=== PATIENT | female | born 1945 | race African-American/Black ===

== ENCOUNTER 2019-05-09 07:13 | Emergency (ER) | payer MEDICARE, OTHER ==
[2019-05-09 07:41] VITALS: BP 133/67
--- NOTE | 2019-05-09 09:02 | ER Document Report ---
ED Medical Screen (RME) - General Chief Complaint: Vaginal Bleeding Stated Complaint: VAGINAL BLEEDING Time Seen by Provider: 05/09/19 08:54 Primary Care Provider: BK ARIAS MD [Primary Care Provider] - Follow up as needed Mode of Arrival: Wheelchair Information source: Patient, Relative Notes: Patient presents to the emergency department with complaints of vaginal bleeding for the past 3 to 4 days. Patient reports she is noted small clots. She notes that when she voids and when she wipes. She is not sure if the blood is coming from her vagina or when she voids. Patient gives history of recent stroke. She was sent to [facility] rehab. She reports they scraped her ovaries there. Patient is on Plavix. Patient also reports she is holding fluid. Denies abdominal pain denies abdominal cramps fever vomiting. I have greeted and performed a rapid initial assessment of this patient. A comprehensive ED assessment and evaluation of the patient, analysis of test results and completion of the medical decision making process will be conducted by additional ED providers. Dictation of this chart was performed using voice recognition software; therefore, there may be some unintended grammatical errors. TRAVEL OUTSIDE OF THE [place] IN LAST 30 DAYS: No - Related Data Allergies/Adverse Reactions: lisinopril [Lisinopril] Allergy (Verified 05/09/19 07:15) morphine Allergy (Verified 05/09/19 07:15) Penicillins Allergy (Verified 05/09/19 07:15) atorvastatin Adverse Reaction (Verified 05/09/19 07:15) metformin Adverse Reaction (Verified 05/09/19 07:15) Past Medical History - Past Medical History Cardiac Medical History: Reports: Hx Hypercholesterolemia, Hx Hypertension Endocrine Medical History: Reports: Hx Diabetes Mellitus Type 2 Renal/ Medical History: Denies: Hx Peritoneal Dialysis Psychiatric Medical History: Denies: Hx Depression Past Surgical History: Reports: Other - L glaucoma procedure - Immunizations Hx Diphtheria, Pertussis, Tetanus Vaccination: No Physical Exam - Vital signs Vitals: Temp Pulse Resp BP Pulse Ox 98.5 F 96 20 133/67 H 98 05/09/19 07:39 05/09/19 07:39 05/09/19 07:39 05/09/19 07:39 05/09/19 07:39 Course - Vital Signs Vital signs: Temp Pulse Resp BP Pulse Ox 98.5 F 96 20 133/67 H 98 07/16/19 07:39 05/09/19 07:39 05/09/19 07:39 05/09/19 07:39 05/09/19 07:39 Doctor's Discharge - Discharge Referrals: BK ARIAS MD [Primary Care Provider] - Follow up as needed
[2019-05-09 10:36] LABS: APPEARANCE,URINE CLEAR; BILIRUBIN,URINE NEGATIVE (NEGATIVE); GLUCOSE, URINE NEGATIVE (NEGATIVE); KETONES,URINE NEGATIVE (NEGATIVE); LEUKOCYTE ESTERASE,URINE NEGATIVE (NEGATIVE); NITRITE,URINE NEGATIVE (NEGATIVE); PROTEIN,URINE NEGATIVE (NEGATIVE); URINE SPECIFIC GRAVITY 1.006; UROBILINOGEN,URINE NEGATIVE mg/dL (<2.0)
[2019-05-09 10:38] LABS: COLOR,URINE PINK
--- NOTE | 2019-05-09 10:46 | ER Document Report ---
ED GI/ - General Chief Complaint: Vaginal Bleeding Stated Complaint: VAGINAL BLEEDING Time Seen by Provider: 05/09/19 08:54 Primary Care Provider: BK ARIAS MD [Primary Care Provider] - Follow up as needed Mode of Arrival: Wheelchair Notes: Patient is a 73-year-old female presented to the emergency department chief complaint of blood in his urine and possible vaginal bleeding. Patient reports symptoms started this week. She denies any abdominal pain, vaginal pain, nausea, vomiting, diarrhea or fever. She does report she had a uterine ablation done last month by a Dr. Christiansen in [place]. She also reports past medical history of stroke and hypertension. She states she used to be diabetic however she manages it with diet. She also complains of bilateral lower extremity edema worse than her baseline, she states she takes Lasix 40 mg once daily. She denies history of CHF. TRAVEL OUTSIDE OF THE [place] IN LAST 30 DAYS: No - Related Data Allergies/Adverse Reactions: lisinopril [Lisinopril] Allergy (Verified 05/09/19 07:15) morphine Allergy (Verified 05/09/19 07:15) Penicillins Allergy (Verified 05/09/19 07:15) atorvastatin Adverse Reaction (Verified 05/09/19 07:15) metformin Adverse Reaction (Verified 05/09/19 07:15) Past Medical History - General Information source: Patient, Relative - Social History Smoking Status: Never Smoker Frequency of alcohol use: None Drug Abuse: None Family History: DM, Hypertension - Past Medical History Cardiac Medical History: Reports: Hx Hypercholesterolemia, Hx Hypertension Endocrine Medical History: Reports: Hx Diabetes Mellitus Type 2 Renal/ Medical History: Denies: Hx Peritoneal Dialysis Psychiatric Medical History: Denies: Hx Depression Past Surgical History: Reports: Hx Gynecologic Surgery - Uterine ablation 2019, Other - L glaucoma procedure - Immunizations Hx Diphtheria, Pertussis, Tetanus Vaccination: No Review of Systems - Review of Systems Constitutional: No symptoms reported EENT: No symptoms reported Cardiovascular: See HPI Respiratory: No symptoms reported Gastrointestinal: No symptoms reported Genitourinary: No symptoms reported Female Genitourinary: See HPI Musculoskeletal: No symptoms reported Skin: No symptoms reported Hematologic/Lymphatic: No symptoms reported Neurological/Psychological: No symptoms reported Physical Exam - Vital signs Vitals: Temp Pulse Resp BP Pulse Ox 98.5 F 96 20 133/67 H 98 05/09/19 07:39 05/09/19 07:39 05/09/19 07:39 05/09/19 07:39 05/09/19 07:39 - Notes Notes: PHYSICAL EXAMINATION: GENERAL: Well-appearing, well-nourished and in no acute distress. HEAD: Atraumatic, normocephalic. EYES: Pupils equal round and reactive to light, extraocular movements intact, conjunctiva are normal. ENT: Nares patent, oropharynx clear without exudates. Moist mucous membranes. NECK: Normal range of motion, supple without lymphadenopathy LUNGS: Breath sounds clear to auscultation bilaterally and equal. No wheezes rales or rhonchi. HEART: Regular rate and rhythm without murmurs ABDOMEN: Soft, large round, nontender, nondistended abdomen. No guarding, no rebound. No masses appreciated. Female : Scant dark red blood noted on internal vaginal exam. Musculoskeletal: Normal range of motion, 3+ pitting edema. No cyanosis. NEUROLOGICAL: Cranial nerves grossly intact. Normal speech. Normal sensory, motor exams PSYCH: Normal mood, normal affect. SKIN: Warm, Dry, normal turgor, no rashes or lesions noted. Course - Re-evaluation Re-evalutation: Nursing staff having issues obtaining blood and IV access. Lab is currently at bedside. Urinalysis shows large blood. Patient's physical examination is unrem arkable, she has no pain. We will plan to do a pelvic exam to determine if she is actually having vaginal bleeding. Laboratory 05/09/19 05/09/19 05/09/19 10:12 11:02 11:02 WBC 9.0 RBC 3.68 L Hgb 11.6 L Hct 34.9 L MCV 95 MCH 31.5 MCHC 33.2 RDW 13.4 Plt Count 295 Seg Neutrophils % 71.2 Lymphocytes % 20.6 Monocytes % 6.7 Eosinophils % 0.6 Basophils % 0.9 Absolute Neutrophils 6.4 Absolute Lymphocytes 1.9 Absolute Monocytes 0.6 Absolute Eosinophils 0.1 Absolute Basophils 0.1 PT Cancelled INR Cancelled APTT Cancelled Sodium Potassium Chloride Carbon Dioxide Anion Gap BUN Creatinine Est GFR ( Amer) Est GFR (Non-Af Amer) Glucose Calcium Total Bilirubin Direct Bilirubin Neonat Total Bilirubin Neonat Direct Bilirubin Neonat Indirect Bili AST ALT Alkaline Phosphatase NT-Pro-B Natriuret Pep Total Protein Albumin Urine Color PINK Urine Appearance CLEAR Urine pH 7.0 Ur Specific [place] 1.006 Urine Protein NEGATIVE Urine Glucose (UA) NEGATIVE Urine Ketones NEGATIVE Urine Blood LARGE H Urine Nitrite NEGATIVE Urine Bilirubin NEGATIVE Urine Urobilinogen NEGATIVE Ur Leukocyte Esterase NEGATIVE Urine WBC (Auto) 3 Urine RBC (Auto) >182 Squamous Epi Cells Auto 1 Urine Mucus (Auto) RARE Urine Ascorbic Acid NEGATIVE 05/09/19 05/09/19 05/09/19 11:02 11:02 12:36 WBC RBC Hgb Hct MCV MCH MCHC RDW Plt Count Seg Neutrophils % Lymphocytes % Monocytes % Eosinophils % Basophils % Absolute Neutrophils Absolute Lymphocytes Absolute Monocytes Absolute Eosinophils Absolute Basophils PT 13.2 INR 1.00 APTT 27.2 Sodium 141.7 Potassium 3.7 Chloride 100 Carbon Dioxide 27 Anion Gap 15 BUN 15 Creatinine 0.78 Est GFR ( Amer) > 60 Est GFR (Non-Af Amer) > 60 Glucose 133 H Calcium 9.6 Total Bilirubin 0.7 Direct Bilirubin 0.3 Neonat Total Bilirubin Not Reportable Neonat Direct Bilirubin Not Reportable Neonat Indirect Bili Not Reportable AST 20 ALT 16 Alkaline Phosphatase 121 NT-Pro-B Natriuret Pep 228 Total Protein 7.6 Albumin 4.1 Urine Color Urine Appearance Urine pH Ur Specific [place] Urine Protein Urine Glucose (UA) Urine Ketones Urine Blood Urine Nitrite Urine Bilirubin Urine Urobilinogen Ur Leukocyte Esterase Urine WBC (Auto) Urine RBC (Auto) Squamous Epi Cells Auto Urine Mucus (Auto) Urine Ascorbic Acid Chest X-Ray 05/09/19 12:30 IMPRESSION: No evidence of pulmonary edema or other acute intrathoracic process. Spoke with patient primary care office to assure close follow up for vaginal bleeding, see d/c note. Dose of lasix given in ED, no evidence of CHF on CXR, BNP within normal range. - Vital Signs Vital signs: Temp Pulse Resp BP Pulse Ox 98.5 F 96 20 133/67 H 98 05/09/19 07:39 05/09/19 07:39 05/09/19 07:39 05/09/19 07:39 05/09/19 07:39 - Laboratory Result Diagrams: 05/09/19 11:02 05/09/19 11:02 Laboratory results interpreted by me: 05/09/19 05/09/19 05/09/19 10:12 11:02 11:02 RBC 3.68 L Hgb 11.6 L Hct 34.9 L Glucose 133 H Urine Blood LARGE H Discharge - Discharge Clinical Impression: Vaginal bleeding Condition: Stable Disposition: HOME, SELF-CARE Additional Instructions: You were seen in the emergency department with concerns of vaginal bleeding. I am starting you on medication for the next 7 days called Shae which should help with this. I am also given you a prescription for Vicodin to help with your pain issues. Please use caution when taking this medication. Please follow-up with Dr. Arias, call his office and ask for his nurse Sweetie as she wi ll schedule you a follow-up appointment for later this week or early next week. Return to the emergency department for any new or worsening symptoms or if your bleeding vaginally and soaking through more than 1 pad per hour. Prescriptions: Hydrocodone Bit/Acetaminophen [Hydrocodon-Acetaminophen 5-325] 1 each PO Q6H #12 tablet Medroxyprogesterone Acet [Provera 10 Mg Tablet] 10 mg PO DAILY #10 tablet Referrals: BK ARIAS MD [Primary Care Provider] - Follow up as needed
[2019-05-09 11:33] LABS: ABSOLUTE BASOPHILS # (AUTO) 0.1 10^3/uL (0.0-0.2); ABSOLUTE EOSINOPHILS # (AUTO) 0.1 10^3/uL (0.0-0.6); ABSOLUTE LYMPHOCYTES (AUTO) 1.9 10^3/uL (0.5-4.7); ABSOLUTE MONOCYTES (AUTO) 0.6 10^3/uL (0.1-1.4); ABSOLUTE NEUT (AUTO) 6.4 10^3/uL (1.7-8.2); BASOPHILS % (AUTO) 0.9 % (0-2); EOSINOPHILS % (AUTO) 0.6 % (0-6); HEMATOCRIT 34.9 % (36.0-47.0); HEMOGLOBIN 11.6 g/dL (12.0-15.5); LYMPHOCYTES % (AUTO) 20.6 % (13-45); MEAN CORPUSCULAR HEMOGLOBIN 31.5 pg (27.0-33.4); MEAN CORPUSCULAR HGB CONC 33.2 g/dL (32.0-36.0); MEAN CORPUSCULAR VOLUME 95 fl (80-97); MONOCYTES % (AUTO) 6.7 % (3-13); PLATELET COUNT 295 10^3/uL (150-450); RED BLOOD COUNT 3.68 10^6/uL (3.72-5.28); RED CELL DISTRIBUTION WIDTH 13.4 % (11.5-14.0); SEGMENTED NEUTROPHILS % (AUTO) 71.2 % (42-78); TOTAL CELLS COUNTED % (AUTO) 100 %
[2019-05-09 12:06] LABS: ALANINE AMINOTRANSFERASE 16 U/L (9-52); ALBUMIN 4.1 g/dL (3.5-5.0); ALKALINE PHOSPHATASE 121 U/L (38-126); ANION GAP 15 (5-19); ASPARTATE AMINO TRANSFERASE 20 U/L (14-36); BILIRUBIN,DIRECT 0.3 mg/dL (0.0-0.4); BILIRUBIN,TOTAL 0.7 mg/dL (0.2-1.3); BLOOD UREA NITROGEN 15 mg/dL (7-20); CALCIUM 9.6 mg/dL (8.4-10.2); CARBON DIOXIDE 27 mmol/L (22-30); CHLORIDE 100 mmol/L (98-107); GLUCOSE 133 mg/dL (75-110); POTASSIUM 3.7 mmol/L (3.6-5.0); SODIUM 141.7 mmol/L (137-145); TOTAL PROTEIN 7.6 g/dL (6.3-8.2)
[2019-05-09 12:56] LABS: PROTHROMBIN TIME 13.2 SEC (11.4-15.4)
[2019-05-09 12:57] LABS: PARTIAL THROMBOPLASTIN TIME 27.2 SEC (23.5-35.8)
--- NOTE | 2019-05-09 13:07 | RADIOLOGY REPORT (SQ) ---
EXAM DESCRIPTION: CHEST SINGLE VIEW COMPLETED DATE/TIME: 05/09/2019 12:59 pm REASON FOR STUDY: eval for CHF, bilateral leg swelling COMPARISON: 02/11/2019 EXAM PARAMETERS: NUMBER OF VIEWS: One view. TECHNIQUE: Single frontal radiographic view of the chest acquired. RADIATION DOSE: NA LIMITATIONS: None. FINDINGS: LUNGS AND PLEURA: No opacities, masses or pneumothorax. No pleural effusion. No overt delvis ma. MEDIASTINUM AND HILAR STRUCTURES: No masses. Contour normal. HEART AND VASCULAR STRUCTURES: Heart normal in size. Aortic atherosclerosis. BONES: No acute findings. HARDWARE: None in the chest. OTHER: No other significant finding. IMPRESSION: No evidence of pulmonary edema or other acute intrathoracic process. TECHNICAL DOCUMENTATION: JOB ID: [id number] [employer]- All Rights Reserved Reading location - IP/workstation name: [email or web address]
[2019-05-09] MEDS ORDERED: FUROSEMIDE INJ/PF 40 MG/4 ML SDV IM ONE (13:08)
== END 2019-05-09 14:38 | disposition home or self-care (01) ==
LOC: ER 07:13
DX: R31.9 Hematuria, unspecified (principal); N93.9 Abnormal uterine and vaginal bleeding, unspecified; Z98.890 Other specified postprocedural states; I10 Essential (primary) hypertension; E11.9 Type 2 diabetes mellitus without complications; R60.9 Edema, unspecified; Z79.899 Other long term (current) drug therapy; Z88.8 Allergy status to other drugs, medicaments and biological substances; Z88.5 Allergy status to narcotic agent; Z88.0 Allergy status to penicillin
CPT/HCPCS: 99284; 96372; 36415; 87086; 85025; 85610; 85730; 80053; 81001; 83880; 71045; J1940

== ENCOUNTER 2019-10-10 13:15 | Inpatient (IN) | payer OTHER, MEDICARE ==
--- NOTE | 2019-10-10 14:41 | RADIOLOGY REPORT (SQ) ---
EXAM DESCRIPTION: CHEST SINGLE VIEW COMPLETED DATE/TIME: 10/10/2019 2:32 pm REASON FOR STUDY: shortness of breath COMPARISON: 05/09/2019 EXAM PARAMETERS: NUMBER OF VIEWS: One view. TECHNIQUE: Single frontal radiographic view of the chest acquired. RADIATION DOSE: NA LIMITATIONS: None. FINDINGS: LUNGS AND PLEURA: Diffuse opacification throughout the right hemithorax. Findings are con sistent with large effusion. The left lung field is grossly clear. MEDIASTINUM AND HILAR STRUCTURES: No masses. Contour normal. HEART AND VASCULAR STRUCTURES: Heart normal in size. Normal vasculature. BONES: No acute findings. HARDWARE: None in the chest. OTHER: No other significant finding. IMPRESSION: Findings are most consistent with large right pleural effusion. TECHNICAL DOCUMENTATION: JOB ID: [id number] [employer]- All Rights Reserved Reading location - IP/workstation name: [email or web address]
--- NOTE | 2019-10-10 15:41 | ER Document Report ---
ED Respiratory Problem - General Chief Complaint: Shortness Of Breath Stated Complaint: WHEEZING Time Seen by Provider: 10/10/19 15:24 Information source: Patient Notes: Patient presents complaining of wheezing that started last night. Patient reports mild cough today. Patient is concerned that she may have bronchitis. Patient denies any fever chest pain or back pain. Patient does complain of some plantar left foot pain. Patient denies any history of any respiratory problems. TRAVEL OUTSIDE OF THE [place] IN LAST 30 DAYS: No - HPI Patient complains to provider of: Cough, Other - Wheezing last night Onset: Yesterday Duration: Intermittent episodes Quality of pain: Achy - Left foot Context: denies: Hx asthma, Hx CHF, Hx COPD, Recent immobilization, Recent surgery, Smoker Associated symptoms: Cough, Orthopnea, Short of breath. denies: Anxiety, Chest pain/discomfort, Chills, Fever Similar symptoms previously: No Recently seen / treated by doctor: No - Related Data Allergies/Adverse Reactions: lisinopril [Lisinopril] Allergy (Verified 05/09/19 07:15) morphine Allergy (Verified 05/09/19 07:15) Penicillins Allergy (Verified 05/09/19 07:15) atorvastatin Adverse Reaction (Verified 05/09/19 07:15) metformin Adverse Reaction (Verified 05/09/19 07:15) Past Medical History - General Information source: Patient, Relative - Social History Smoking Status: Unknown if Ever Smoked Frequency of alcohol use: None Drug Abuse: None Lives with: Spouse/Significant other Family History: DM, Hypertension Patient has suicidal ideation: No Patient has homicidal ideation: No - Past Medical History Cardiac Medical History: Reports: Hx Hypercholesterolemia, Hx Hypertension Neurological Medical History: Reports: Hx Cerebrovascular Accident - Left-sided weakness Endocrine Medical History: Reports: Hx Diabetes Mellitus Type 2 - Not currently on medication per her primary doctor Renal/ Medical History: Denies: Hx Peritoneal Dialysis Psychiatric Medical History: Denies: Hx Depression Surgical Hx: Negative Past Surgical History: Reports: Hx Gynecologic Surgery - Uterine ablation 2019, Other - L glaucoma procedure - Immunizations Hx Diphtheria, Pertussis, Tetanus Vaccination: No Review of Systems - Review of Systems Constitutional: No symptoms reported. denies: Fever, Recent illness EENT: No symptoms reported Cardiovascular: No symptoms reported. denies: Chest pain Respiratory: Cough, Short of breath, Wheezing Gastrointestinal: No symptoms reported. denies: Abdominal pain, Diarrhea, Nausea, Vomiting Genitourinary: No symptoms reported Female Genitourinary: No symptoms reported Musculoskeletal: Other - Plantar left foot pain. denies: Back pain Skin: No symptoms reported Hematologic/Lymphatic: No symptoms reported Neurological/Psychological: No symptoms reported. denies: Lost consciousness, Headaches Physical Exam - Vital signs Vitals: Pulse Ox 96 10/10/19 13:40 - General General appearance: Appears well, Alert In distress: None - HEENT Head: Normocephalic, Atraumatic Nasal: Normal Mouth/Lips: Normal Mucous membranes: Normal Neck: Normal, Supple - Respiratory Respiratory status: No respiratory distress Chest status: Nontender Breath sounds: Normal. No: Rales, Rhonchi, Stridor, Wheezing Chest palpation: Normal - Cardiovascular Rhythm: Regular Heart sounds: S1 appreciated, S2 appreciated - Abdominal Inspection: Morbidly Obese Tenderness: Nontender - Back Back: Normal, Nontender - Extremities General upper extremity: Other - Weakness to the left upper extremity General lower extremity: Edema Foot: Tender - Tenderness to plantar surface of left heel, no swelling, no obvious injury. No: Puncture wound - Neurological Neuro grossly intact: Yes Cognition: Normal Orientation: AAOx4 - Psychological Associated symptoms: Normal affect, Normal mood - Skin Skin Temperature: Warm Skin Moisture: Dry Skin Color: Normal Course - Re-evaluation Re-evalutation: 10/10/19 18:23 Patient denies significant complaint at this time. Patient does become tachycardic with exertion or laying supine. Patient with large right pleural effusion worrisome for malignancy according to CT report. Consulted with Dr. Vasquez who recommends consultation with hospitalist for admission. Spoke with Dr. Stark who agrees to come and evaluate patient. 10/10/19 18:28 In room to update patient regarding plan of care. Patient had just finished getting up to a bedside commode and patient with increased dyspnea at this time. Patient mildly tachycardic with heart rate of 108 with oxygen saturation 96%. - Vital Signs Vital signs: Temp Pulse Resp BP Pulse Ox 98.7 F 98 17 149/101 H 97 10/10/19 19:39 10/10/19 13:57 10/10/19 20:01 10/10/19 20:01 10/10/19 20:01 - Laboratory Result Diagrams: 10/10/19 16:50 10/10/19 16:50 Laboratory results interpreted by me: 10/10/19 10/10/19 10/10/19 14:32 16:50 16:50 Hgb 11.7 L Hct 35.5 L RDW 14.6 H Lymph % (Auto) 9.3 L Seg Neutrophils % 78.9 H Potassium 3.4 L Chloride 96 L Carbon Dioxide 32 H Glucose 132 H Alkaline Phosphatase 194 H Urine Protein 30 H Urine Ketones 20 H Urine Urobilinogen 2.0 H Labs- Entire Visit 10/10/19 10/10/19 10/10/19 14:32 16:50 16:50 WBC 9.6 RBC 3.80 Hgb 11.7 L Hct 35.5 L MCV 94 MCH 30.7 MCHC 32.9 RDW 14.6 H Plt Count 411 Lymph % (Auto) 9.3 L [place] % (Auto) 10.6 Eos % (Auto) 0.3 Baso % (Auto) 0.9 Absolute Neuts (auto) 7.6 Absolute Lymphs (auto) 0.9 Absolute Monos (auto) 1.0 Absolute Eos (auto) 0.0 Absolute Basos (auto) 0.1 Seg Neutrophils % 78.9 H Sodium 141.9 Potassium 3.4 L Chloride 96 L Carbon Dioxide 32 H Anion Gap 14 BUN 16 Creatinine 0.68 Est GFR ( Amer) > 60 Est GFR (MDRD) Non-Af > 60 Glucose 132 H Calcium 9.6 Total Bilirubin 0.8 Direct Bilirubin 0.2 Neonat Total Bilirubin Not Reportable Neonat Direct Bilirubin Not Reportable Neonat Indirect Bili Not Reportable AST 32 ALT 19 Alkaline Phosphatase 194 H Troponin I NT-Pro-B Natriuret Pep Total Protein 7.9 Albumin 3.8 Urine Color YELLOW Urine Appearance CLEAR Urine pH 6.0 Ur Specific [place] 1.020 Urine Protein 30 H Urine Glucose (UA) NEGATIVE Urine Ketones 20 H Urine Blood NEGATIVE Urine Nitrite NEGATIVE Urine Bilirubin NEGATIVE Urine Urobilinogen 2.0 H Ur Leukocyte Esterase NEGATIVE Urine WBC (Auto) 2 Urine RBC (Auto) 0 Squamous Epi Cells Auto 6 Urine Mucus (Auto) RARE Urine Ascorbic Acid NEGATIVE 10/10/19 16:50 WBC RBC Hgb Hct MCV MCH MCHC RDW Plt Count Lymph % (Auto) [place] % (Auto) Eos % (Auto) Baso % (Auto) Absolute Neuts (auto) Absolute Lymphs (auto) Absolute Monos (auto) Absolute Eos (auto) Absolute Basos (auto) Seg Neutrophils % Sodium Potassium Chloride Carbon Dioxide Anion Gap BUN Creatinine Est GFR ( Amer) Est GFR (MDRD) Non-Af Glucose Calcium Total Bilirubin Direct Bilirubin Neonat Total Bilirubin Neonat Direct Bilirubin Neonat Indirect Bili AST ALT Alkaline Phosphatase Troponin I < 0.012 NT-Pro-B Natriuret Pep 152 Total Protein Albumin Urine Color Urine Appearance Urine pH Ur Specific [place] Urine Protein Urine Glucose (UA) Urine Ketones Urine Blood Urine Nitrite Urine Bilirubin Urine Urobilinogen Ur Leukocyte Esterase Urine WBC (Auto) Urine RBC (Auto) Squamous Epi Cells Auto Urine Mucus (Auto) Urine Ascorbic Acid - Diagnostic Test Radiology reviewed: Image reviewed, Reports reviewed Discharge - Discharge Clinical Impression: Pleural effusion Dyspnea Qualifiers: Dyspnea type: unspecified Qualified Code(s): R06.00 - Dyspnea, unspecified Condition: Fair Disposition: ADMITTED INPATIENT Admitting Provider: Lincoln (Hospitalist) Unit Admitted: Telemetry
--- NOTE | 2019-10-10 16:32 | RADIOLOGY REPORT (SQ) ---
EXAM DESCRIPTION: FOOT LEFT COMPLETE COMPLETED DATE/TIME: 10/10/2019 4:21 pm REASON FOR STUDY: left foot pain COMPARISON: None. NUMBER OF VIEWS: Three views. TECHNIQUE: AP, lateral and oblique radiographic images acquired of the left foot. LIMITATIONS: None. FINDINGS: MINERALIZATION: Normal. BONES: No acute fracture or dislocation. No worrisome bone lesions. JOINTS: No effusions. SOFT TISSUES: There is diffuse soft tissue edema. OTHER: There are prominent calcaneal spurs at the insertion site of the Achilles tendon and to a less er extent plantar aponeurosis. IMPRESSION: Diffuse soft tissue edema. Prominent calcaneal spur. TECHNICAL DOCUMENTATION: JOB ID: [id number] [employer]- All Rights Reserved Reading location - IP/workstation name: [email or web address]
[2019-10-10 17:05] LABS: ABSOLUTE BASOPHILS # (AUTO) 0.1 10^3/uL (0.0-0.2); ABSOLUTE LYMPHOCYTES (AUTO) 0.9 10^3/uL (0.5-4.7); ABSOLUTE NEUT (AUTO) 7.6 10^3/uL (1.7-8.2); BASOPHILS % (AUTO) 0.9 % (0-2); EOSINOPHILS % (AUTO) 0.3 % (0-6); HEMATOCRIT 35.5 % (36.0-47.0); HEMOGLOBIN 11.7 g/dL (12.0-15.5); LYMPHOCYTES % (AUTO) 9.3 % (13-45); MEAN CORPUSCULAR HEMOGLOBIN 30.7 pg (27.0-33.4); MEAN CORPUSCULAR HGB CONC 32.9 g/dL (32.0-36.0); MEAN CORPUSCULAR VOLUME 94 fl (80-97); MONOCYTES % (AUTO) 10.6 % (3-13); PLATELET COUNT 411 10^3/uL (150-450); RED CELL DISTRIBUTION WIDTH 14.6 % (11.5-14.0); SEGMENTED NEUTROPHILS % (AUTO) 78.9 % (42-78); TOTAL CELLS COUNTED % (AUTO) 100 %; WHITE BLOOD COUNT 9.6 10^3/uL (4.0-10.5)
[2019-10-10 17:08] LABS: APPEARANCE,URINE CLEAR; BILIRUBIN,URINE NEGATIVE (NEGATIVE); COLOR,URINE YELLOW; GLUCOSE, URINE NEGATIVE (NEGATIVE); KETONES,URINE 20 mg/dL (NEGATIVE); LEUKOCYTE ESTERASE,URINE NEGATIVE (NEGATIVE); NITRITE,URINE NEGATIVE (NEGATIVE); PROTEIN,URINE 30 mg/dL (NEGATIVE)
[2019-10-10 17:23] LABS: ALBUMIN 3.8 g/dL (3.5-5.0); ALKALINE PHOSPHATASE 194 U/L (38-126); ANION GAP 14 (5-19); ASPARTATE AMINO TRANSFERASE 32 U/L (14-36); BILIRUBIN,DIRECT 0.2 mg/dL (0.0-0.4); BILIRUBIN,TOTAL 0.8 mg/dL (0.2-1.3); BLOOD UREA NITROGEN 16 mg/dL (7-20); CALCIUM 9.6 mg/dL (8.4-10.2); CARBON DIOXIDE 32 mmol/L (22-30); CHLORIDE 96 mmol/L (98-107); GLUCOSE 132 mg/dL (75-110); POTASSIUM 3.4 mmol/L (3.6-5.0); TOTAL PROTEIN 7.9 g/dL (6.3-8.2)
[2019-10-10 17:38] LABS: NT PRO BNP 152 pg/mL (<450)
[2019-10-10 17:39] LABS: TROPONIN I < 0.012 ng/mL
--- NOTE | 2019-10-10 17:55 | RADIOLOGY REPORT (SQ) ---
EXAM DESCRIPTION: CT CHEST WITHOUT COMPLETED DATE/TIME: 10/10/2019 5:40 pm REASON FOR STUDY: SOB, large pleural effusion COMPARISON: Chest films 10/10/2019, 05/09/2019, 02/11/2019 TECHNIQUE: CT scan performed of the chest without intravenous contrast. Images reviewed with lung, soft tissue and bone windows. Reconstructed coronal and sagittal MPR images reviewed. All images st ored on PACS. All CT scanners at this facility use dose modulation, iterative reconstruction, and/or weight based d osing when appropriate to reduce radiation dose to as low as reasonably achievable (ALARA). [facility]: Dose Right [facility]: CareDose [facility]: Dose Right [facility]: Teradose 4D [facility]: [employer] RADIATION DOSE: CT Rad equipment meets quality standard of care and radiation dose reduction techniq ues were employed. CTDIvol: 21.0 mGy. DLP: 832 mGy-cm. mGy. LIMITATIONS: Obese patient, unable to raise the right arm over her head, streak artifact throughout the chest, no IV contrast FINDINGS: LUNGS AND PLEURA: Near complete collapse of the right lung, minimal aeration at the right lung apex. Very large right pleural effusion opacifies the right chest. There is shift of mediastinal structure s into the left chest. There is inferior displacement of the right hemidiaphragm from the large righ t pleural effusion. Left lung well inflated and clear. No left pleural fluid or pneumothorax. HILAR AND MEDIASTINAL STRUCTURES: Abnormal mediastinal lymph nodes are present, largest is 3 cm trans verse by 2.2 cm AP in the precarinal region. A right hilar mass is suspected, with narrowing of the right middle lobe bronchus. This is difficult to discern because of technical limitations HEART AND VASCULAR STRUCTURES: No aneurysm. No pericardial effusion. UPPER ABDOMEN: Stones in the gallbladder THYROID AND OTHER SOFT TISSUES: No masses. No adenopathy. BONES: New HARDWARE: None in the chest. OTHER: No other significant findings. 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 Near complete collap se of the right lung. TECHNICAL DOCUMENTATION: JOB ID: [id number] Quality ID # [id number]: Final reports with documentation of one or more dose reduction techniques (e.g., Au tomated exposure control, adjustment of the mA and/or kV according to patient size, use of iterative reconstruction technique) 2010 [employer]- All Rights Reserved Reading location - IP/workstation name: [email or web address]
[2019-10-10] MEDS ORDERED: IPRATROPIUM/ALBUTEROL 0.5-2.5 MG/3 ML AMPUL NEB ONE (18:28)
--- NOTE | 2019-10-10 19:08 | PDOC H&P ---
History of Present Illness Admission Date/PCP: BK ARIAS MD History of Present Illness: ASIM MUÑIZ is a 74 year old female with a history of stroke last year along with hypertension, hyperlipidemia, and legal blindness who has some residual left-sided weakness but was in her usual state of health until about a week and a half 2 weeks ago when she felt like she was coming down with bronchitis. She said it gradually got worse on her and she became progressively more short of breath with exertion. She said even when she was not exerting herself she was feeling more short of breath and thought she was coming down with bronchitis. She is not had any fever. She has had scant sputum production. She said other than the shortness of breath she did not really feel bad. She has not had any peripheral edema. She does not have a history of heart failure. She had a recent echocardiogram that showed an EF of 65% and some mild grade 1 diastolic dysfunction but otherwise normal. When she sits up she has a normal SPO2 greater than 90% but when she lays down she gets hypoxic. Her labs were essentially unremarkable, but she had a chest CT which shows a massive right pleural effusion. She is being admitted for further evaluation and management. She is never had anything like this before. She said she quit smoking about 30 years ago and up until recently was using smokeless tobacco. Past Medical History Cardiac Medical History: Reports: Hyperlipidema, Hypertension Endocrine Medical History: Reports: Diabetes Mellitus Type 2 Psychiatric Medical History: Denies: Depression Past Surgical History Past Surgical History: Reports: Other - L glaucoma procedure Social History Smoking Status: Unknown if Ever Smoked Frequency of Alcohol Use: Rare Hx Recreational Drug Use: No Hx Prescription Drug Abuse: No Family History Family History: DM, Hypertension Parental Family History Reviewed: Yes Children Family History Reviewed: Yes Sibling(s) Family History Reviewed.: Yes Medication/Allergy Home Medications: Amlodipine Besylate [Norvasc 5 mg Tablet] 5 mg PO DAILY 05/09/19 Aspirin [Ecotrin 81 mg EC Tablet] 81 mg PO DAILY 05/09/19 Atorvastatin Calcium [Lipitor 10 mg Tablet] 10 mg PO QHS 05/09/19 Clopidogrel Bisulfate [Plavix 75 mg Tablet] 75 mg PO DAILY 05/09/19 Furosemide [Lasix 40 mg Tablet] 40 mg PO QAM 05/09/19 Hydralazine HCl [Apresoline 50 mg Tablet] 50 mg PO Q12 05/09/19 Hydrochlorothiazide [Hydrodiuril 25 mg Tablet] 25 mg PO QAM 05/09/19 Hydrocodone Bit/Acetaminophen [Hydrocodon-Acetaminophen 5-325] 1 each PO Q6H #12 tablet 05/09/19 Medroxyprogesterone Acet [Provera 10 Mg Tablet] 10 mg PO DAILY #10 tablet 05/09/19 Metoprolol Succinate [Toprol Xl 50 mg Tab.sr] 50 mg PO DAILY 05/09/19 Nystatin [Nystop] 1 applic TOP DAILY 05/09/19 Pantoprazole Sodium [Protonix [address] Tablet] 40 mg PO [id number] 05/09/19 Tamsulosin HCl [Flomax 0.4 mg Cap.sr] 0.4 mg PO DAILY 05/09/19 Allergies/Adverse Reactions: lisinopril [Lisinopril] Allergy (Verified 05/09/19 07:15) morphine Allergy (Verified 05/09/19 07:15) Penicillins Allergy (Verified 05/09/19 07:15) atorvastatin Adverse Reaction (Verified 05/09/19 07:15) metformin Adverse Reaction (Verified 05/09/19 07:15) Review of Systems All systems: reviewed and no additional remarkable complaints except as stated - All systems were reviewed and were negative except as noted in the HPI Physical Exam Vital Signs: Temp Pulse Resp BP Pulse Ox 98.5 F 98 22 H 173/92 H 96 10/10/19 13:57 10/10/19 13:57 10/10/19 18:29 10/10/19 18:29 10/10/19 18:29 Intake & Output 10/09/19 10/10/19 10/11/19 06:59 06:59 06:59 Weight 123.8 kg General appearance: PRESENT: no acute distress, cooperative, disheveled, morbidly obese Head exam: PRESENT: atraumatic, normocephalic Eye exam: PRESENT: EOMI. ABSENT: conjunctival injection, nystagmus, scleral icterus Ear exam: PRESENT: normal external ear exam Mouth exam: PRESENT: dry mucosa, neck supple Teeth exam: PRESENT: poor dentation Throat exam: ABSENT: post pharyngeal erythema Neck exam: PRESENT: full ROM. ABSENT: carotid bruit, JVD, lymphadenopathy, meningismus, tenderness, thyromegaly Respiratory exam: PRESENT: decreased breath sounds - Entire right side of chest, unlabored. ABSENT: accessory muscle use, chest wall tenderness, prolonged expiratory phas, rhonchi, symmetrical, tachypnea, wheezes Cardiovascular exam: PRESENT: +S1, +S2, tachycardia Pulses: PRESENT: normal carotid pulses Vascular exam: PRESENT: normal capillary refill GI/Abdominal exam: PRESENT: normal bowel sounds, soft. ABSENT: distended, guarding, rebound, tenderness Extremities exam: ABSENT: clubbing, pedal edema Musculoskeletal exam: PRESENT: normal inspection. ABSENT: deformity Neurological exam: PRESENT: alert, awake, oriented to person, oriented to place, oriented to time, oriented to situation, CN II-XII grossly intact. ABSENT: motor sensory deficit - She has some persistent left-sided weakness since her stroke earlier last year Psychiatric exam: PRESENT: appropriate affect, normal mood Skin exam: PRESENT: dry, warm Results Laboratory Results: 10/10/19 16:50 10/10/19 16:50 10/10/19 10/10/19 10/10/19 14:32 16:50 16:50 WBC 9.6 RBC 3.80 Hgb 11.7 L Hct 35.5 L MCV 94 MCH 30.7 MCHC 32.9 RDW 14.6 H Plt Count 411 Seg Neutrophils % 78.9 H Sodium 141.9 Potassium 3.4 L Chloride 96 L Carbon Dioxide 32 H Anion Gap 14 BUN 16 Creatinine 0.68 Est GFR ( Amer) > 60 Glucose 132 H Calcium 9.6 Total Bilirubin 0.8 AST 32 Alkaline Phosphatase 194 H Total Protein 7.9 Albumin 3.8 Urine Color YELLOW Urine Appearance CLEAR Urine pH 6.0 Ur Specific [place] 1.020 Urine Protein 30 H Urine Glucose (UA) NEGATIVE Urine Ketones 20 H Urine Blood NEGATIVE Urine Nitrite NEGATIVE Ur Leukocyte Esterase NEGATIVE Urine WBC (Auto) 2 Urine RBC (Auto) 0 10/10/19 16:50 Troponin I < 0.012 NT-Pro-B Natriuret Pep 152 Impressions: Chest X-Ray 10/10/19 14:02 IMPRESSION: Findings are most consistent with large right pleural effusion. Foot X-Ray 10/10/19 15:40 IMPRESSION: Diffuse soft tissue edema. Prominent calcaneal spur. 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 Near complete collapse of the right lung. 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 We will monitor for pneumothorax and reexpansion pulmonary edema. Further management will depend upon the results of the fluid studies. We will otherwise manage her comorbid conditions with her home medications. - Time Time Spent with patient: 35 or more minutes - Inpatient Certification Based on my medical assessment, after consideration of the patient's comorbidities, presenting symptoms, or acuity I expect that the services needed warrant INPATIENT care.: Yes I certify that my determination is in accordance with my understanding of Medicare's requirements for reasonable and necessary INPATIENT services [42 CFR 412.3e].: Yes Medical Necessity: Need Close Monitoring Due to Risk of Patient Decompensation, Need For Continuous Telemetry Monitoring, Need for Surgery, Risk of Complication if Not Cared For in Hospital, Risk of Diagnosis Which Will Require Inpatient Eval/Care/Monitoring
[2019-10-10] MEDS ORDERED: INFLUENZA QUAD (6MOS+) 2019-20 VAC 0.5 ML SYR IM ONE (21:17)
[2019-10-10] MEDS: HYDRALAZINE HCL 50 MG TABLET PO SCH (23:49)
[2019-10-11 07:08] LABS: HEMATOCRIT 36.5 % (36.0-47.0); HEMOGLOBIN 11.7 g/dL (12.0-15.5); MEAN CORPUSCULAR HEMOGLOBIN 30.4 pg (27.0-33.4); MEAN CORPUSCULAR HGB CONC 32.1 g/dL (32.0-36.0); MEAN CORPUSCULAR VOLUME 95 fl (80-97); PLATELET COUNT 426 10^3/uL (150-450); RED BLOOD COUNT 3.85 10^6/uL (3.72-5.28); RED CELL DISTRIBUTION WIDTH 14.6 % (11.5-14.0); WHITE BLOOD COUNT 10.1 10^3/uL (4.0-10.5)
[2019-10-11 07:29] LABS: ANION GAP 13 (5-19); BLOOD UREA NITROGEN 15 mg/dL (7-20); CALCIUM 9.7 mg/dL (8.4-10.2); CARBON DIOXIDE 34 mmol/L (22-30); CHLORIDE 97 mmol/L (98-107); GLUCOSE 129 mg/dL (75-110); POTASSIUM 3.7 mmol/L (3.6-5.0)
[2019-10-11] MEDS: CLOPIDOGREL BISULFATE 75 MG TABLET PO SCH (09:07)
[2019-10-11] MEDS: ASPIRIN 81 MG TABLET, ENT COATED PO SCH (10:00)
[2019-10-11 10:11] LABS: INTERNATIONAL RATION (INR) 1.06; PROTHROMBIN TIME 13.8 SEC (11.4-15.4)
[2019-10-11] MEDS: PANTOPRAZOLE SODIUM 40 MG TABLET.DR PO SCH (10:13)
[2019-10-11] MEDS: TAMSULOSIN HCL 0.4 MG CAP.SR.24H PO SCH ×3 (10:13→21:25)
[2019-10-11] MEDS: METOPROLOL SUCCINATE 50 MG TAB.SR.24H PO SCH (10:14)
[2019-10-11] MEDS: FUROSEMIDE 40 MG TABLET PO SCH (10:14)
[2019-10-11] MEDS: HYDROCHLOROTHIAZIDE 25 MG TABLET PO SCH (10:14)
[2019-10-11] MEDS: HYDRALAZINE HCL 50 MG TABLET PO SCH ×2 (10:14→21:25)
[2019-10-11] MEDS: AMLODIPINE BESYLATE 5 MG TABLET PO SCH (10:16)
[2019-10-11] MEDS ORDERED: IPRATROPIUM/ALBUTEROL 0.5-2.5 MG/3 ML AMPUL NEB ONE ×2 (11:29→11:45)
[2019-10-11] MEDS ORDERED: MIDAZOLAM 2 MG/2 ML INJ ONE (14:51)
[2019-10-11] MEDS ORDERED: FENTANYL CITRATE INJ/PF 100 MCG/2 ML AMPUL ONE (14:51)
--- NOTE | 2019-10-11 16:17 | PDOC PROGRESS REPORT ---
Subjective Progress Note for:: 10/11/19 Subjective:: No adverse events overnight. We had to turn up her oxygen a little bit and keep her upright. She is n.p.o. awaiting thoracentesis with tube placement. Reason For Visit: RIGHT PLEURAL EFFUSION Physical Exam Vital Signs: Temp Pulse Resp BP Pulse Ox 98 F 97 20 149/70 H 96 10/11/19 15:53 10/11/19 15:53 10/11/19 15:53 10/11/19 15:53 10/11/19 15:53 Intake & Output 10/10/19 10/11/19 10/12/19 06:59 06:59 06:59 Output Total 150 700 Balance -150 -700 Weight 111.5 kg General appearance: PRESENT: no acute distress, cooperative, disheveled, morbidly obese Respiratory exam: PRESENT: decreased breath sounds - Entire right side of chest, unlabored. ABSENT: accessory muscle use, chest wall tenderness, prolonged expiratory phas, rhonchi, symmetrical, tachypnea, wheezes Cardiovascular exam: PRESENT: +S1, +S2, tachycardia Pulses: PRESENT: normal carotid pulses Vascular exam: PRESENT: normal capillary refill GI/Abdominal exam: PRESENT: normal bowel sounds, soft. ABSENT: distended, g uarding, rebound, tenderness Extremities exam: ABSENT: clubbing, pedal edema Musculoskeletal exam: PRESENT: normal inspection. ABSENT: deformity Neurological exam: PRESENT: alert, awake, oriented to person, oriented to place, oriented to time, oriented to situation, motor sensory deficit - She has some persistent left-sided weakness since her stroke earlier last year and is legally blind Psychiatric exam: PRESENT: appropriate affect, normal mood Skin exam: PRESENT: dry, warm Results Laboratory Results: 10/11/19 06:35 10/11/19 06:35 10/10/19 10/10/19 10/10/19 14:32 16:50 16:50 WBC 9.6 RBC 3.80 Hgb 11.7 L Hct 35.5 L MCV 94 MCH 30.7 MCHC 32.9 RDW 14.6 H Plt Count 411 Seg Neutrophils % 78.9 H Sodium 141.9 Potassium 3.4 L Chloride 96 L Carbon Dioxide 32 H Anion Gap 14 BUN 16 Creatinine 0.68 Est GFR ( Amer) > 60 Glucose 132 H Calcium 9.6 Total Bilirubin 0.8 AST 32 Alkaline Phosphatase 194 H Total Protein 7.9 Albumin 3.8 Urine Color YELLOW Urine Appearance CLEAR Urine pH 6.0 Ur Specific [place] 1.020 Urine Protein 30 H Urine Glucose (UA) NEGATIVE Urine Ketones 20 H Urine Blood NEGATIVE Urine Nitrite NEGATIVE Ur Leukocyte Esterase NEGATIVE Urine WBC (Auto) 2 Urine RBC (Auto) 0 10/11/19 10/11/19 06:35 06:35 WBC 10.1 RBC 3.85 Hgb 11.7 L Hct 36.5 MCV 95 MCH 30.4 MCHC 32.1 RDW 14.6 H Plt Count 426 Seg Neutrophils % Sodium 143.7 Potassium 3.7 Chloride 97 L Carbon Dioxide 34 H Anion Gap 13 BUN 15 Creatinine 0.63 Est GFR ( Amer) > 60 Glucose 129 H Calcium 9.7 Total Bilirubin AST Alkaline Phosphatase Total Protein Albumin Urine Color Urine Appearance Urine pH Ur Specific [place] Urine Protein Urine Glucose (UA) Urine Ketones Urine Blood Urine Nitrite Ur Leukocyte Esterase Urine WBC (Auto) Urine RBC (Auto) 10/10/19 16:50 Troponin I < 0.012 NT-Pro-B Natriuret Pep 152 Impressions: Chest X-Ray 10/10/19 14:02 IMPRESSION: Findings are most consistent with large right pleural effusion. Foot X-Ray 10/10/19 15:40 IMPRESSION: Diffuse soft tissue edema. Prominent calcaneal spur. 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 Near complete collapse of the right lung. Assessment and Plan - Diagnosis (1) Pleural effusion Is this a current diagnosis for this admission?: Yes Plan: Awaiting thoracentesis with chest tube placement. She will be hooked up to wall suction. Fluid studies have been ordered. Once we get a sufficient amount of fluid in of the chest, will probably repeat the CT scan of the chest to see if there is some underlying pathology that was obscured by all the fluid. 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 We will monitor for pneumothorax and re expansion pulmonary edema. Further management will depend upon the results of the fluid studies. We will otherwise manage her comorbid conditions with her home medications. - Time Time Spent with patient: 15-24 minutes
--- NOTE | 2019-10-11 16:25 | RADIOLOGY REPORT (SQ) ---
EXAM DESCRIPTION: CT THORACENTESIS W/CHEST TUBE COMPLETED DATE/TIME: 10/11/2019 3:57 pm REASON FOR STUDY: large right pleural efusion COMPARISON: Prior chest CT TECHNIQUE: CT guided right-sided chest tube placement performed with anxiolysis. CT Fluoroscopy Time: 3.[address] scanners at this facility use dose modulation, iterative reconstruction, and/or weight based d osing when appropriate to reduce radiation dose to as low as reasonably achievable (ALARA). [facility]: Dose Right [facility]: CareDose [facility]: Dose Right [facility]: Teradose 4D [facility]: [employer] RADIATION DOSE: CT Rad equipment meets quality standard of care and radiation dose reduction techni ques were employed. CTDIvol: 4.0 - 27.2 mGy. DLP: 2842 mGy-cm.mGy. FINDINGS: After obtaining informed consent and explaining the risks and benefits of conscious sedati on,the patient agreed to the procedure. Prior to the procedure, a time out was performed to verify th e patient's identity and planned procedure. IV sedation was administered and physician direction by the registered nurse using 50 micrograms of f entanyl, for conscious sedation. Physiologic monitoring was provided before, during, and after sedati on. The total sedation time was 30 minutes. Documentation face to face time, the performing proceduralist, spent monitoring the patient: [address] scanning was performed to localize the approach for the right-sided chest tube placeme nt. After sterile skin prep and local lidocaine for skin and deep tissue anesthesia, in 18 gauge needle w as advanced into the right pleural space until fluid returned. A 035 wire was advanced in some resis tance was experienced. The needle was removed and limited scan was performed to confirm the wire was intrathoracic. The wire appear to be abutting the liver capsule. A Azubu catheter was advanced over the wire and the wire removed. The catheter was retracted and aspirated until additional fluid retu rned. Additional attempts at advancing the wire were made and limited imaging again demonstrated a w chilo to be in the subdiaphragmatic location. The catheter was readvanced over the wire and a wire rem yaw. The catheter was further retracted and the wire was readvanced. Imaging was performed to conf irm the wire was intrathoracic. The catheter was removed and the tract was serially dilated. A 10 F rench pigtail catheter was advanced over the wire. The wire and inner stiffener were removed and the pigtail formed in a standard fashion. The catheter was secured to the skin and hooked to a Pleur-Ev ac drainage device. A sterile dressing was applied. Patient tolerated procedure well left the CT suite in stable condition. IMPRESSION: CT fluoroscopy guided placement of a small bore (10 Vietnamese) right-sided chest tube as de tailed above. Recommend placing catheter to gravity drainage. COMMENT: Quality ID [id number]: Final reports for procedures using fluoroscopy that document radiation exp osure indices, or exposure time and number of fluorographic images (if radiation exposure indices are not available) Patient medication list reviewed: Yes- Quality ID# [id number]:Eligible professional attests to documenting i n the medical record they obtained, updated, or reviewed the patient's current medications.. TECHNICAL DOCUMENTATION: JOB ID: [id number] Quality ID# [id number]: Final reports with documentation of one or more dose reduction techniques (e.g., Aut omated exposure control, adjustment of the mA and/or kV according to patient size, use of iterative r econstruction technique) 2010 [employer]- All Rights Reserved Reading location - IP/workstation name: [id number]
[2019-10-11 19:15] LABS: FLUID TYPE PLEURAL
[2019-10-11 19:16] LABS: FLUID APPEARANCE CLOUDY; FLUID COLOR AMBER; FLUID SOURCE LUNG; FLUID VISCOSITY LIQUID
[2019-10-12] MEDS: HYDROCHLOROTHIAZIDE 25 MG TABLET PO SCH (08:33)
[2019-10-12] MEDS: FUROSEMIDE 40 MG TABLET PO SCH (08:34)
[2019-10-12] MEDS: PANTOPRAZOLE SODIUM 40 MG TABLET.DR PO SCH (08:34)
[2019-10-12 08:38] LABS: HEMOGLOBIN 11.2 g/dL (12.0-15.5); MEAN CORPUSCULAR HGB CONC 32.1 g/dL (32.0-36.0); MEAN CORPUSCULAR VOLUME 94 fl (80-97); PLATELET COUNT 372 10^3/uL (150-450); RED BLOOD COUNT 3.74 10^6/uL (3.72-5.28); RED CELL DISTRIBUTION WIDTH 14.3 % (11.5-14.0); WHITE BLOOD COUNT 8.3 10^3/uL (4.0-10.5)
[2019-10-12 09:03] LABS: ANION GAP 12 (5-19); BLOOD UREA NITROGEN 12 mg/dL (7-20); CALCIUM 9.3 mg/dL (8.4-10.2); CARBON DIOXIDE 38 mmol/L (22-30); CHLORIDE 92 mmol/L (98-107); GLUCOSE 117 mg/dL (75-110); POTASSIUM 3.6 mmol/L (3.6-5.0)
[2019-10-12] MEDS: ASPIRIN 81 MG TABLET, ENT COATED PO SCH (10:44)
[2019-10-12] MEDS: AMLODIPINE BESYLATE 5 MG TABLET PO SCH (10:44)
[2019-10-12] MEDS: METOPROLOL SUCCINATE 50 MG TAB.SR.24H PO SCH (10:45)
[2019-10-12] MEDS: CLOPIDOGREL BISULFATE 75 MG TABLET PO SCH (10:45)
[2019-10-12] MEDS: HYDRALAZINE HCL 50 MG TABLET PO SCH ×2 (10:45→21:42)
--- NOTE | 2019-10-12 15:49 | RADIOLOGY REPORT (SQ) ---
EXAM DESCRIPTION: CHEST SINGLE VIEW COMPLETED DATE/TIME: 10/12/2019 2:55 pm REASON FOR STUDY: right pleural effusion COMPARISON: 10/10/2019 NUMBER OF VIEWS: One view. TECHNIQUE: Single frontal radiographic image of the chest acquired. LIMITATIONS: None. FINDINGS: LUNGS AND PLEURA: Decrease in right pleural effusion. No pneumothorax. MEDIASTINUM AND HEART: Stable heart size and mediastinal structures. SUPPORT DEVICES: Small bore chest tube overlying right costophrenic angle. BONY STRUCTURES: No acute findings. HARDWARE: None. OTHER: No other significant finding. IMPRESSION: No pneumothorax status post right chest tube placement. Reading location - IP/workstation name: [email or web address]
--- NOTE | 2019-10-12 16:36 | PDOC PROGRESS REPORT ---
Subjective Progress Note for:: 10/12/19 Subjective:: No adverse events overnight. No new complaints. She says she feels like her breathing is little bit better. She is ready to advance her diet. No cough or fever. Reason For Visit: RIGHT PLEURAL EFFUSION Physical Exam Vital Signs: Temp Pulse Resp BP Pulse Ox 98.6 F 100 23 H 127/59 H 97 10/12/19 12:51 10/12/19 12:51 10/12/19 12:51 10/12/19 12:51 10/12/19 12:51 Intake & Output 10/11/19 10/12/19 10/13/19 06:59 06:59 06:59 Output Total 150 2450 Balance -150 -2450 Weight 111.5 kg 109 kg General appearance: PRESENT: no acute distress, cooperative, disheveled, morbidly obese Respiratory exam: PRESENT: decreased breath sounds - lower 3/4 right side of chest, unlabored. ABSENT: accessory muscle use, chest wall tenderness, prolonged expiratory phas, rhonchi, symmetrical, tachypnea, wheezes Cardiovascular exam: PRESENT: +S1, +S2, tachycardia Pulses: PRESENT: normal carotid pulses Vascular exam: PRESENT: normal capillary refill GI/Abdominal exam: PRESENT: normal bowel sounds, soft. ABSENT: distended, guarding, rebound, tenderness Extremities exam: ABSENT: clubbing, pedal edema Musculoskeletal exam: PRESENT: normal inspection. ABSENT: deformity Neurological exam: PRESENT: alert, awake, oriented to person, oriented to place, oriented to time, oriented to situation, motor sensory deficit - She has some persistent left-sided weakness since her stroke earlier last year and is legally blind Psychiatric exam: PRESENT: appropriate affect, normal mood Skin exam: PRESENT: dry, warm Results Laboratory Results: 10/12/19 07:30 10/12/19 07:30 10/11/19 10/12/19 10/12/19 15:40 07:30 07:30 WBC 8.3 RBC 3.74 Hgb 11.2 L Hct 35.0 L MCV 94 MCH 30.0 MCHC 32.1 RDW 14.3 H Plt Count 372 Sodium 141.9 Potassium 3.6 Chloride 92 L Carbon Dioxide 38 H Anion Gap 12 BUN 12 Creatinine 0.65 Est GFR ( Amer) > 60 Glucose 117 H Calcium 9.3 Fluid Type PLEURAL Fluid Source LUNG Fluid Color MAGGI Fluid Appearance CLOUDY Fluid Viscosity LIQUID Fluid WBC 122 Fluid RBC 05223 10/10/19 16:50 Troponin I < 0.012 NT-Pro-B Natriuret Pep 152 Impressions: Foot X-Ray 10/10/19 15:40 IMPRESSION: Diffuse soft tissue edema. Prominent calcaneal spur. 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 Near complete collapse of the right lung. Thoracentesis 10/11/19 00:00 IMPRESSION: CT fluoroscopy guided placement of a small bore (10 Georgian) right- sided chest tube as detailed above. Recommend placing catheter to gravity drainage. Chest X-Ray 10/12/19 00:00 IMPRESSION: No pneumothorax status post right chest tube placement. Assessment and Plan - Diagnosis (1) Pleural effusion Is this a current diagnosis for this admission?: Yes Plan: She is status post chest tube placement. She has had a couple of liters out she says some improvement on her chest x-ray. Her lung exam does not sound much better but she says she feels like she is breathing better. Gram stain of the fluid was negative. It definitely looks exudative. Awaiting cytology. 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 Qualified C ode(s): E11.9 - Type 2 diabetes mellitus without complications Is this a current diagnosis for this admission?: Yes (6) Acute hypoxemic respiratory failure Is this a current diagnosis for this admission?: Yes Plan: Secondary to the pleural effusion, anticipate that once the fluid is drained that she should have some improvement in her hypoxemia (7) Morbid obesity with BMI of 40.0-44.9, adult Is this a current diagnosis for this admission?: Yes - Plan Summary Summary: We will plan to give a thoracentesis with chest tube placement, along with multiple fluid studies including LDH, protein, cell count and differential, Gram stain and culture, and cytology. We will monitor for pneumothorax and reexpan wanda pulmonary edema. Further management will depend upon the results of the fluid studies. We will otherwise manage her comorbid conditions with her home medications. - Time Time Spent with patient: 15-24 minutes
[2019-10-12] MEDS: TAMSULOSIN HCL 0.4 MG CAP.SR.24H PO SCH (17:43)
[2019-10-13 06:35] LABS: HEMATOCRIT 34.2 % (36.0-47.0); HEMOGLOBIN 11.4 g/dL (12.0-15.5); MEAN CORPUSCULAR HGB CONC 33.2 g/dL (32.0-36.0); MEAN CORPUSCULAR VOLUME 93 fl (80-97); PLATELET COUNT 350 10^3/uL (150-450); RED BLOOD COUNT 3.67 10^6/uL (3.72-5.28); RED CELL DISTRIBUTION WIDTH 14.4 % (11.5-14.0); WHITE BLOOD COUNT 7.9 10^3/uL (4.0-10.5)
[2019-10-13 06:56] LABS: BLOOD UREA NITROGEN 14 mg/dL (7-20); CALCIUM 9.1 mg/dL (8.4-10.2); CHLORIDE 88 mmol/L (98-107); GLUCOSE 88 mg/dL (75-110); POTASSIUM 3.4 mmol/L (3.6-5.0)
[2019-10-13 07:08] LABS: ANION GAP 10 (5-19)
[2019-10-13 07:09] LABS: CARBON DIOXIDE 42 mmol/L (22-30)
[2019-10-13] MEDS: HYDROCHLOROTHIAZIDE 25 MG TABLET PO SCH (08:49)
[2019-10-13] MEDS: PANTOPRAZOLE SODIUM 40 MG TABLET.DR PO SCH (08:49)
[2019-10-13] MEDS: FUROSEMIDE 40 MG TABLET PO SCH (08:49)
[2019-10-13] MEDS: ASPIRIN 81 MG TABLET, ENT COATED PO SCH (09:02)
[2019-10-13] MEDS: METOPROLOL SUCCINATE 50 MG TAB.SR.24H PO SCH (09:03)
[2019-10-13] MEDS: HYDRALAZINE HCL 50 MG TABLET PO SCH ×2 (09:03→22:08)
[2019-10-13] MEDS: AMLODIPINE BESYLATE 5 MG TABLET PO SCH (09:03)
--- NOTE | 2019-10-13 17:39 | PDOC PROGRESS REPORT ---
Subjective Progress Note for:: 10/13/19 Subjective:: No adverse events overnight. No new complaints. Drainage from the tube is slowed down, so thinking that we have gotten all the drainage will get from gravity we put her over to low wall suction and began to get a good drainage going. Reason For Visit: RIGHT PLEURAL EFFUSION Physical Exam Vital Signs: Temp Pulse Resp BP Pulse Ox 98.8 F 92 19 112/80 96 10/13/19 11:01 10/13/19 14:00 10/13/19 11:01 10/13/19 11:01 10/13/19 11:01 Intake & Output 10/12/19 10/13/19 10/14/19 06:59 06:59 06:59 Intake Total 810 Output Total 2450 2500 Balance -2450 -1690 Weight 109 kg 112.3 kg 112.3 kg General appearance: PRESENT: no acute distress, cooperative, disheveled, morbidly obese Respiratory exam: PRESENT: decreased breath sounds - lower 3/4 right side of chest, unlabored. ABSENT: accessory muscle use, chest wall tenderness, prolonged expiratory phas, rhonchi, symmetrical, tachypnea, wheezes Cardiovascular exam: PRESENT: +S1, +S2, tachycardia Pulses: PRESENT: normal carotid pulses Vascular exam: PRESENT: normal capillary refill GI/Abdominal exam: PRESENT: normal bowel sounds, soft. ABSENT: distended, guarding, rebound, tenderness Extremities exam: ABSENT: clubbing, pedal edema Musculoskeletal exam: PRESENT: normal inspection. ABSENT: deformity Neurological exam: PRESENT: alert, awake, oriented to person, oriented to place, oriented to time, oriented to situation, motor sensory deficit - She has some persistent left-sided weakness since her stroke earlier last year and is legally blind Psychiatric exam: PRESENT: appropriate affect, normal mood Skin exam: PRESENT: dry, warm Results Laboratory Results: 10/13/19 04:47 10/13/19 04:47 10/11/19 10/11/19 10/13/19 15:40 15:40 04:47 WBC 7.9 RBC 3.67 L Hgb 11.4 L Hct 34.2 L MCV 93 MCH 31.0 MCHC 33.2 RDW 14.4 H Plt Count 350 Sodium Potassium Chloride Carbon Dioxide Anion Gap BUN Creatinine Est GFR ( Amer) Glucose Calcium Fluid Total Protein 5.4 Fluid LDH 902 10/13/19 04:47 WBC RBC Hgb Hct MCV MCH MCHC RDW Plt Count Sodium 140.4 Potassium 3.4 L Chloride 88 L Carbon Dioxide 42 H* Anion Gap 10 BUN 14 Creatinine 0.71 Est GFR ( Amer) > 60 Glucose 88 Calcium 9.1 Fluid Total Protein Fluid LDH 10/10/19 16:50 Troponin I < 0.012 NT-Pro-B Natriuret Pep 152 Impressions: Foot X-Ray 10/10/19 15:40 IMPRESSION: Diffuse soft tissue edema. Prominent calcaneal spur. 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 Near complete collapse of the right lung. Thoracentesis 10/11/19 00:00 IMPRESSION: CT fluoroscopy guided placement of a small bore (10 Spanish) right- sided chest tube as detailed above. Recommend placing catheter to gravity drainage. Chest X-Ray 10/12/19 00:00 IMPRESSION: No pneumothorax status post right chest tube placement. Assessment and Plan - Diagnosis (1) Pleural effusion Is this a current diagnosis for this admission?: Yes Plan: She is status post chest tube placement. She got about 6 to 700 mL's of fluid out between yesterday and today, and so we put her up to low wall suction. Gram stain of the fluid was negative. It definitely looks exudative. Cytology shows malignant cells, further stains are pending. Once we clear out some more of the fluid and can confirm reexpansion of the lung on chest x-ray, will get a CT scan of the chest to look for a mass. (2) Legal blindness Is this a current diagnosis for this admission?: Yes (3) Hemiparesis affecting left side as late effect of cerebrovascular accident Is this a current diagnosis for this admission?: Yes (4) Essential (primary) hypertension Is this a current diagnosis for this admission?: Yes (5) Type 2 diabetes mellitus without complications Qualifiers: Diabetes mellitus alf insulin use: without alf use Qualified Code(s): E11.9 - Type 2 diabetes mellitus without complications Is this a current diagnosis for this admission?: Yes (6) Acute hypoxemic respiratory failure Is this a current diagnosis for this admission?: Yes Plan: She seemed to be a little bit more somnolent today, so we are going to keep an eye on her, and if she becomes difficult to arouse, will check an ABG to see if she is accumulating CO2. (7) Morbid obesity with BMI of 40.0-44.9, adult Is this a current diagnosis for this admission?: Yes - Plan Summary Summary: We will plan to give a thoracentesis with chest tube placement, along with multiple fluid studies including LDH, protein, cell count and differential, Gram stain and culture, and cytology. We will monitor for pneumothorax and reexpansion pulmonary edema. Further management will depend upon the results of the fluid studies. We will otherwise manage her comorbid conditions with her home medications. - Time Time Spent with patient: 15-24 minutes
[2019-10-13] MEDS: TAMSULOSIN HCL 0.4 MG CAP.SR.24H PO SCH (18:20)
[2019-10-13] MEDS: MELATONIN 3 MG TABLET PO PRN (22:08)
[2019-10-14] MEDS: HYDROCHLOROTHIAZIDE 25 MG TABLET PO SCH (07:48)
[2019-10-14] MEDS: PANTOPRAZOLE SODIUM 40 MG TABLET.DR PO SCH (07:48)
[2019-10-14] MEDS: FUROSEMIDE 40 MG TABLET PO SCH (07:49)
[2019-10-14] MEDS: AMLODIPINE BESYLATE 5 MG TABLET PO SCH (09:00)
[2019-10-14] MEDS: METOPROLOL SUCCINATE 50 MG TAB.SR.24H PO SCH (09:01)
[2019-10-14] MEDS: ASPIRIN 81 MG TABLET, ENT COATED PO SCH (09:01)
[2019-10-14] MEDS: HYDRALAZINE HCL 50 MG TABLET PO SCH ×2 (09:01→21:17)
--- NOTE | 2019-10-14 11:55 | RADIOLOGY REPORT (SQ) ---
EXAM DESCRIPTION: CHEST SINGLE VIEW COMPLETED DATE/TIME: 10/14/2019 11:46 am REASON FOR STUDY: To see increased lung expansion COMPARISON: 10/12/2019 EXAM PARAMETERS: NUMBER OF VIEWS: One view. TECHNIQUE: Single frontal radiographic view of the chest acquired. RADIATION DOSE: NA LIMITATIONS: None. FINDINGS: LUNGS AND PLEURA: There is still extensive fluid in the right chest. Indwelling small alexa iber chest tube. Left perihilar atelectasis and left basilar atelectasis. No pneumothorax. MEDIASTINUM AND HILAR STRUCTURES: No masses. Contour normal. HEART AND VASCULAR STRUCTURES: Heart normal in size. Normal vasculature. BONES: No acute findings. HARDWARE: None in the chest. OTHER: No other significant finding. IMPRESSION: No significant improvement in the large fluid collection right pleural space. Indwellin g small caliber chest tube. TECHNICAL DOCUMENTATION: JOB ID: [id number]- All Rights Reserved Reading location - IP/workstation name: [email or web address]
--- NOTE | 2019-10-14 16:50 | PDOC PROGRESS REPORT ---
Subjective Progress Note for:: 10/14/19 Subjective:: No adverse events overnight. No new complaints. Vital signs been stable. She says overall her breathing feels pretty good. Chest tube output seems to have slowed down a little bit. Chest x-ray was essentially unchanged. Reason For Visit: RIGHT PLEURAL EFFUSION Physical Exam Vital Signs: Temp Pulse Resp BP Pulse Ox 98.4 F 109 H 24 H 123/71 99 10/14/19 12:33 10/14/19 14:00 10/14/19 12:33 10/14/19 12:33 10/14/19 12:33 Intake & Output 10/13/19 10/14/19 10/15/19 06:59 06:59 06:59 Intake Total 810 480 Output Total 2500 2700 250 Balance -1690 -2220 -250 Weight 112.3 kg 113.4 kg General appearance: PRESENT: no acute distress, cooperative, disheveled, morbidly obese Respiratory exam: PRESENT: decreased breath sounds - lower 3/4 right side of chest, unlabored. ABSENT: accessory muscle use, chest wall tenderness, prolonged expiratory phas, rhonchi, symmetrical, tachypnea, wheezes Cardiovascular exam: PRESENT: +S1, +S2, tachycardia Pulses: PRESENT: normal carotid pulses Vascular exam: PRESENT: normal capillary refill GI/Abdominal exam: PRESENT: normal bowel sounds, soft. ABSENT: distended, guarding, rebound, tenderness Extremities exam: ABSENT: clubbing, pedal edema Musculoskeletal exam: PRESENT: normal inspection. ABSENT: deformity Neurological exam: PRESENT: alert, awake, oriented to person, oriented to place, oriented to time, oriented to situation, motor sensory deficit - She has some persistent left-sided weakness since her stroke earlier last year and is legally blind Psychiatric exam: PRESENT: appropriate affect, normal mood Skin exam: PRESENT: dry, warm Results Laboratory Results: 10/13/19 04:47 10/13/19 04:47 10/10/19 16:50 Troponin I < 0.012 NT-Pro-B Natriuret Pep 152 Impressions: Foot X-Ray 10/10/19 15:40 IMPRESSION: Diffuse soft tissue edema. Prominent calcaneal spur. 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 Near complete collapse of the right lung. Thoracentesis 10/11/19 00:00 IMPRESSION: CT fluoroscopy guided placement of a small bore (10 Marshallese) right- sided chest tube as detailed above. Recommend placing catheter to gravity drainage. Chest X-Ray 10/14/19 00:00 IMPRESSION: No significant improvement in the large fluid collection right pleural space. Indwelling small caliber chest tube. Assessment and Plan - Diagnosis (1) Pleural effusion Is this a current diagnosis for this admission?: Yes Plan: The tube flushes and aspirates without any difficulty. We increased the suction to -30 cm H2O and had some improvement in drainage. If she is not having an improvement in drainage tomorrow have somebody from radiology, evaluate the tube just to make sure that were not missing something as a reason why would not be draining as fast as we think it should. At this point there does not seem to be an air leak anywhere. The pleural fluid cytology has not come back and it does seem to be showing evidence of malignant cells. Further tests are pending. We still want to get most the fluid drained out so that we can get a CT scan of the chest. (2) Legal blindness Is this a current diagnosis for this admission?: Yes (3) Hemiparesis affecting left side as late effect of cerebrovascular accident Is this a current diagnosis for this admission?: Yes (4) Essential (primary) hypertension Is this a current diagnosis for this admission?: Yes (5) Type 2 diabetes mellitus without complications Qualifiers: Diabetes mellitus long term care pharmacist insulin use: without alf use Qualified Code(s): E11.9 - Type 2 diabetes mellitus without complications Is this a current diagnosis for this admission?: Yes (6) Acute hypoxemic respiratory failure Is this a current diagnosis for this admission?: Yes Plan: Currently stable on 2 to 3 L of oxygen per nasal cannula. (7) Morbid obesity with BMI of 40.0-44.9, adult Is this a current diagnosis for this admission?: Yes - Plan Summary Summary: We will plan to give a thoracentesis with chest tube placement, along with multiple fluid studies including LDH, protein, cell count and differential, Gram stain and culture, and cytology. We will monitor for pneumothorax and reexpansion pulmonary edema. Further management will depend upon the results of the fluid studies. We will otherwise manage her comorbid conditions with her home medications. - Time Time Spent with patient: 15-24 minutes
[2019-10-14] MEDS: TAMSULOSIN HCL 0.4 MG CAP.SR.24H PO SCH (17:00)
[2019-10-15] MEDS: PANTOPRAZOLE SODIUM 40 MG TABLET.DR PO SCH (07:41)
[2019-10-15] MEDS: HYDROCHLOROTHIAZIDE 25 MG TABLET PO SCH (07:41)
[2019-10-15] MEDS: FUROSEMIDE 40 MG TABLET PO SCH (07:42)
[2019-10-15] MEDS: ASPIRIN 81 MG TABLET, ENT COATED PO SCH (09:41)
[2019-10-15] MEDS: HYDRALAZINE HCL 50 MG TABLET PO SCH ×2 (09:41→21:44)
[2019-10-15] MEDS: METOPROLOL SUCCINATE 50 MG TAB.SR.24H PO SCH (09:41)
[2019-10-15] MEDS: AMLODIPINE BESYLATE 5 MG TABLET PO SCH (09:41)
--- NOTE | 2019-10-15 15:20 | PDOC PROGRESS REPORT ---
Subjective Progress Note for:: 10/15/19 Subjective:: No adverse events overnight. No new complaints. Vital signs been stable. Breathing is fairly comfortable as long as she sitting up. Were having some trouble with chest tube draining yesterday, the tube flushed and aspirated without difficulty, but it was not draining out very fast. There was no air leak and the lines were all secured as were the connections. Reason For Visit: RIGHT PLEURAL EFFUSION Physical Exam Vital Signs: Temp Pulse Resp BP Pulse Ox 98.7 F 98 20 113/65 98 10/15/19 11:24 10/15/19 11:24 10/15/19 11:24 10/15/19 11:24 10/15/19 11:24 Intake & Output 10/14/19 10/15/19 10/16/19 06:59 06:59 06:59 Intake Total 480 120 Output Total 2700 2570 Balance -2220 -2450 Weight 113.4 kg 113.5 kg General appearance: PRESENT: no acute distress, cooperative, disheveled, morbidly obese Respiratory exam: PRESENT: decreased breath sounds - lower 3/4 right side of ch est, unlabored. ABSENT: accessory muscle use, chest wall tenderness, prolonged expiratory phas, rhonchi, symmetrical, tachypnea, wheezes Cardiovascular exam: PRESENT: +S1, +S2, tachycardia Pulses: PRESENT: normal carotid pulses Vascular exam: PRESENT: normal capillary refill GI/Abdominal exam: PRESENT: normal bowel sounds, soft. ABSENT: distended, guarding, rebound, tenderness Extremities exam: ABSENT: clubbing, pedal edema Musculoskeletal exam: PRESENT: normal inspection. ABSENT: deformity Neurological exam: PRESENT: alert, awake, oriented to person, oriented to place, oriented to time, oriented to situation, motor sensory deficit - She has some persistent left-sided weakness since her stroke earlier last year and is legally blind Psychiatric exam: PRESENT: appropriate affect, normal mood Skin exam: PRESENT: dry, warm Results Laboratory Results: 10/13/19 04:47 10/13/19 04:47 10/11/19 15:40 Pleural Fluid - Right Pleural Effusion Gram Stain - Final 10/11/19 15:40 Pleural Fluid - Right Pleural Effusion Body Fluid Culture - Final NO AEROBIC OR ANAEROBIC ORGANISMS RECOVERED 10/10/19 16:50 Troponin I < 0.012 NT-Pro-B Natriuret Pep 152 Impressions: Foot X-Ray 10/10/19 15:40 IMPRESSION: Diffuse soft tissue edema. Prominent calcaneal spur. 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 Near complete collapse of the right lung. Thoracentesis 10/11/19 00:00 IMPRESSION: CT fluoroscopy guided placement of a small bore (10 Ukrainian) right- sided chest tube as detailed above. Recommend placing catheter to gravity drainage. Chest X-Ray 10/14/19 00:00 IMPRESSION: No significant improvement in the large fluid collection right pleural space. Indwelling small caliber chest tube. Assessment and Plan - Diagnosis (1) Pleural effusion Is this a current diagnosis for this admission?: Yes Plan: The tube flushes and aspirates without any difficulty. We added some fluid to the waterseal and suction containers. If we continue to have slow drainage tomorrow, I am going to have someone from interventional radiology come to evaluate the tube. The pleural fluid cytology has come back and it does seem to be showing evidence of malignant cells. Further tests are pending. We still want to get most the fluid drained out so that we can get a CT scan of the chest. (2) Legal blindness Is this a current diagnosis for this admission?: Yes (3) Hemiparesis affecting left side as late effect of cerebrovascular accident Is this a current diagnosis for this admission?: Yes (4) Essential (primary) hypertension Is this a current diagnosis for this admission?: Yes (5) Type 2 diabetes mellitus without complications Qualifiers: Diabetes mellitus keno terminal operator insulin use: without keno terminal operator use Qualified Code(s): E11.9 - Type 2 diabetes mellitus without complications Is this a current diagnosis for this admission?: Yes (6) Acute hypoxemic respiratory failure Is this a current diagnosis for this admission?: Yes Plan: Currently stable on 2 to 3 L of oxygen per nasal cannula. (7) Morbid obesity with BMI of 40.0-44.9, adult Is this a current diagnosis for this admission?: Yes - Plan Summary Summary: We will plan to give a thoracentesis with chest tube placement, along with multiple fluid studies including LDH, protein, cell count and differential, Gram stain and culture, and cytology. We will monitor for pneumothorax and reexpansion pulmonary edema. Further management will depend upon the results of the fluid studies. We will otherwise manage her comorbid conditions with her home medications. - Time Time Spent with patient: 15-24 minutes
[2019-10-15] MEDS: TAMSULOSIN HCL 0.4 MG CAP.SR.24H PO SCH (17:38)
[2019-10-15] MEDS: MELATONIN 3 MG TABLET PO PRN (21:44)
--- NOTE | 2019-10-16 08:05 | PDOC CONSULTATION ---
Consultation Consult Date: 10/16/19 Attending physician:: REJI REBOLLAR Provider Consulted: JORDON DELGADILLO Consult reason:: Malignant right pleural effusion History of Present Illness Admission Date/PCP: 10/10/19 19:20 BK ARIAS MD Patient complains of: Shortness of breath, weakness History of Present Illness: ASIM MUÑIZ is a 74 year old female With a greater than 18-kaak-vppv history history of tobacco, found to have a large right pleural effusion with right lung collapse. CT imaging indicated the possibility of a right hilar mass, also 2.2 cm mediastinal adenopathy. Patient has had chest tube placement and has had persistent drainage, cytology from fluid indicates metastatic carcinoma, further typing is pending immunohistochemistry. The patient herself is pleasantly confused, does know some things but also is confused on the date, and where she is. She has known history of stroke with left-sided weakness. But, prior to admission it sounds like she was getting around by herself. It sounds like she was mostly doing her ADLs by herself. Here, because of the chest tube she has not really been out of bed but does like to be sitting up per nursing. She has had persistent drainage, and over the last 24 hours she is had out about 250 mL of serosanguineous fluid. Past Medical History Cardiac Medical History: Reports: Hyperlipidema, Hypertension Endocrine Medical History: Reports: Diabetes Mellitus Type 2 - Not currently on medication per her primary doctor Psychiatric Medical History: Denies: Depression Past Surgical History Past Surgical History: Reports: Other - L glaucoma procedure Social History Information Source: Patient Lives with: Spouse/Significant other Smoking Status: Current Every Day Smoker Electronic Cigarette use?: No Frequency of Alcohol Use: None Hx Recreational Drug Use: No Drugs: None Hx Prescription Drug Abuse: No - Advance Directive Resuscitation Status: Full Code Family History Family History: DM, Hypertension Parental Family History Reviewed: Yes Children Family History Reviewed: Yes Sibling(s) Family History Reviewed.: Yes Medication/Allergy Home Medications: Amlodipine Besylate [Norvasc 5 mg Tablet] 5 mg PO DAILY 05/09/19 Aspirin [Ecotrin 81 mg EC Tablet] 81 mg PO DAILY 05/09/19 Atorvastatin Calcium [Lipitor 10 mg Tablet] 10 mg PO QHS 05/09/19 Furosemide [Lasix 40 mg Tablet] 40 mg PO QAM 05/09/19 Hydralazine HCl [Apresoline 50 mg Tablet] 50 mg PO Q12 05/09/19 Hydrochlorothiazide [Hydrodiuril 25 mg Tablet] 25 mg PO QAM 05/09/19 Metoprolol Succinate [Toprol Xl 50 mg Tab.sr] 50 mg PO DAILY 05/09/19 Pantoprazole Sodium [Protonix [address] Tablet] 40 mg PO [id number] 05/09/19 Tamsulosin HCl [Flomax 0.4 mg Cap.sr] 0.4 mg PO DAILY 05/09/19 Allergies/Adverse Reactions: lisinopril [Lisinopril] Allergy (Verified 05/09/19 07:15) morphine Allergy (Verified 05/09/19 07:15) Penicillins Allergy (Verified 05/09/19 07:15) atorvastatin Adverse Reaction (Verified 05/09/19 07:15) metformin Adverse Reaction (Verified 05/09/19 07:15) Review of Systems Constitutional: ABSENT: chills, fever(s), headache(s), weight gain, weight loss Eyes: ABSENT: visual disturbances Ears: ABSENT: hearing changes Cardiovascular: ABSENT: chest pain, dyspnea on exertion, edema, orthropnea, palpitations Respiratory: ABSENT: cough, hemoptysis Gastrointestinal: ABSENT: abdominal pain, constipation, diarrhea, hematemesis, hematochezia, nausea, vomiting Genitourinary: ABSENT: dysuria, hematuria Musculoskeletal: ABSENT: joint swelling Integumentary: ABSENT: rash, wounds Neurological: ABSENT: abnormal gait, abnormal speech, confusion, dizziness, focal weakness, syncope Psychiatric: ABSENT: anxiety, depression, homidical ideation, suicidal ideation Endocrine: ABSENT: cold intolerance, heat intolerance, polydipsia, polyuria Hematologic/Lymphatic: ABSENT: easy bleeding, easy bruising Physical Exam Vital Signs: Temp Pulse Resp BP Pulse Ox 97.3 F 87 18 113/58 L 98 10/16/19 03:29 10/16/19 03:29 10/16/19 03:29 10/16/19 03:29 10/16/19 03:29 Intake & Output 10/15/19 10/16/19 10/17/19 06:59 06:59 06:59 Intake Total 120 100 Output Total 2570 1220 Balance -2450 -1120 Weight 113.5 kg 124.5 kg General appearance: PRESENT: no acute distress, well-developed, well-nourished Head exam: PRESENT: atraumatic, normocephalic Eye exam: PRESENT: conjunctiva pink, EOMI, PERRLA. ABSENT: scleral icterus Ear exam: PRESENT: normal external ear exam Mouth exam: PRESENT: moist, tongue midline Neck exam: ABSENT: carotid bruit, JVD, lymphadenopathy, thyromegaly Respiratory exam: PRESENT: clear to auscultation carlita. ABSENT: rales, rhonchi, wheezes Cardiovascular exam: PRESENT: RRR. ABSENT: diastolic murmur, rubs, systolic murmur Pulses: PRESENT: normal dorsalis pedis pul Vascular exam: PRESENT: normal capillary refill GI/Abdominal exam: PRESENT: normal bowel sounds, soft. ABSENT: distended, guarding, mass, organolmegaly, rebound, tenderness Rectal exam: PRESENT: deferred Extremities exam: PRESENT: full ROM. ABSENT: calf tenderness, clubbing, pedal edema Neurological exam: PRESENT: alert, awake, oriented to person, oriented to place, oriented to time, oriented to situation, CN II-XII grossly intact. ABSENT: motor sensory deficit Psychiatric exam: PRESENT: appropriate affect, normal mood. ABSENT: homicidal ideation, suicidal ideation Skin exam: PRESENT: dry, intact, warm. ABSENT: cyanosis, rash Results Laboratory Results: 10/13/19 04:47 10/13/19 04:47 10/11/19 15:40 Pleural Fluid - Right Pleural Effusion Gram Stain - Final 10/11/19 15:40 Pleural Fluid - Right Pleural Effusion Body Fluid Culture - Final NO AEROBIC OR ANAEROBIC ORGANISMS RECOVERED 10/10/19 16:50 Troponin I < 0.012 NT-Pro-B Natriuret Pep 152 Impressions: Foot X-Ray 10/10/19 15:40 IMPRESSION: Diffuse soft tissue edema. Prominent calcaneal spur. 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 Near complete collapse of the right lung. Thoracentesis 10/11/19 00:00 IMPRESSION: CT fluoroscopy guided placement of a small bore (10 Korean) right- sided chest tube as detailed above. Recommend placing catheter to gravity drainage. Chest X-Ray 10/14/19 00:00 IMPRESSION: No significant improvement in the large fluid collection right pleural space. Indwelling small caliber chest tube. Status: Image reviewed by me Assessment & Plan - Diagnosis (1) Malignant pleural effusion Is this a current diagnosis for this admission?: Yes Plan: Patient with malignant right pleural effusion related to the most likely right hilar mass that is the primary mass, mediastinal adenopathy overall spread looks reasonable for at least a stage III versus 4 primary lung cancer. Unfortunately she has had continuous drainage, and a made a call to thoracic surgery in [place] because she may be a candidate for VATS pleurodesis. I have placed a call to her as well. I do not think the drainage will stop. Now that there is a large bore chest tube in I do not know that we can switch that out for a Pleurx catheter. But a Pleurx catheter would be another possibility. I will asked surgery to look in this as well. Will follow. - Time Time Spent: Greater than 70 Minutes
--- NOTE | 2019-10-16 09:37 | PDOC TRANSFER SUMMARY ---
General Admission Date/PCP: 10/10/19 19:20 BK ARIAS MD Transfer Date: 10/16/19 Accepting Facility: [facility] Accepting Physician: yenny Resuscitation Status: Full Code - Transfer Diagnosis (1) Malignant pleural effusion Is this a current diagnosis for this admission?: Yes (2) Legal blindness Is this a current diagnosis for this admission?: Yes (3) Hemiparesis affecting left side as late effect of cerebrovascular accident Is this a current diagnosis for this admission?: No (4) Morbid obesity with BMI of 40.0-44.9, adult Is this a current diagnosis for this admission?: No (5) Type 2 diabetes mellitus without complications Is this a current diagnosis for this admission?: No (6) Essential (primary) hypertension Is this a current diagnosis for this admission?: Yes - Transfer Medications Home Medications: Amlodipine Besylate [Norvasc 5 mg Tablet] 5 mg PO DAILY 05/09/19 Aspirin [Ecotrin 81 mg EC Tablet] 81 mg PO DAILY 05/09/19 Atorvastatin Calcium [Lipitor 10 mg Tablet] 10 mg PO QHS 05/09/19 Furosemide [Lasix 40 mg Tablet] 40 mg PO QAM 05/09/19 Hydralazine HCl [Apresoline 50 mg Tablet] 50 mg PO Q12 05/09/19 Hydrochlorothiazide [Hydrodiuril 25 mg Tablet] 25 mg PO QAM 05/09/19 Metoprolol Succinate [Toprol Xl 50 mg Tab.sr] 50 mg PO DAILY 05/09/19 Pantoprazole Sodium [Protonix [address] Tablet] 40 mg PO ACBRKFST 05/09/19 Tamsulosin HCl [Flomax 0.4 mg Cap.sr] 0.4 mg PO DAILY 05/09/19 Transfer Medications: Current Medications Amlodipine Besylate (Norvasc 5 Mg Tablet) 5 mg PO DAILY [facility] Stop: 11/10/19 09:59 Last Admin: 10/15/19 09:41 Dose: 5 mg Documented by: Aspirin (Ecotrin 81 Mg Ec Tablet) 81 mg PO DAILY [facility] Stop: 11/10/19 09:59 Last Admin: 10/15/19 09:41 Dose: 81 mg Documented by: Furosemide (Lasix 40 Mg Tablet) 40 mg PO QAM [facility] Stop: 11/10/19 07:59 Last Admin: 10/15/19 07:42 Dose: 40 mg Documented by: Hydralazine HCl (Apresoline 50 Mg Tablet) 50 mg PO Q12 [facility] Stop: 11/09/19 23:29 Last Admin: 10/15/19 21:44 Dose: 50 mg Documented by: Hydrochlorothiazide (Hydrodiuril 25 Mg Tablet) 25 mg PO QAM [facility] Stop: 11/10/19 07:59 Last Admin: 10/15/19 07:41 Dose: 25 mg Documented by: Melatonin (Melatonin 3 Mg Tablet) 3 mg PO HSP PRN PRN Reason: SLEEP OR INSOMNIA Stop: 11/12/19 18:42 Last Admin: 10/15/19 21:44 Dose: 3 mg Documented by: Metoprolol Succinate (Toprol Xl 50 Mg Tab.Sr) 50 mg PO DAILY [facility] Stop: 11/10/19 09:59 Last Admin: 10/15/19 09:41 Dose: 50 mg Documented by: Pantoprazole Sodium (Protonix [address] Tablet) 40 mg PO ACBRKFST [facility] Stop: 11/10/19 07:59 Last Admin: 10/15/19 07:41 Dose: 40 mg Documented by: Tamsulosin HCl (Flomax 0.4 Mg Cap.Sr) 0.4 mg PO QPM [facility] Stop: 11/10/19 09:59 Last Admin: 10/15/19 17:38 Dose: 0.4 mg Documented by: - Allergies Allergies/Adverse Reactions: lisinopril [Lisinopril] Allergy (Verified 05/09/19 07:15) morphine Allergy (Verified 05/09/19 07:15) Penicillins Allergy (Verified 05/09/19 07:15) atorvastatin Adverse Reaction (Verified 05/09/19 07:15) metformin Adverse Reaction (Verified 05/09/19 07:15) Hospital Course Hospital Course: 74 year old female with a history of stroke last year along with hypertension, hyperlipidemia, and legal blindness who has some residual left-sided weakness but was in her usual state of health until about a week and a half 2 weeks ago when she felt like she was coming down with bronchitis. She said it gradually got worse on her and she became progressively more short of breath with exertion. She said even when she was not exerting herself she was feeling more short of breath and thought she was coming down with bronchitis. She is not had any fever. She has had scant sputum production. She said other than the shortness of breath she did not really feel bad. She has not had any peripheral edema. She does not have a history of heart failure. She had a recent echocardiogram that showed an EF of 65% and some mild grade 1 diastolic dysfunction but otherwise normal. When she sits up she has a normal SPO2 greater than 90% but when she lays down she gets hypoxic. Her labs were essen tially unremarkable, but she had a chest CT which shows a massive right pleural effusion. She is being admitted for further evaluation and management. She is never had anything like this before. She said she quit smoking about 30 years ago and up until recently was using smokeless tobacco. 10/16/20190026-09-mucv-old female admitted for shortness of breath found to have a large sized pleural effusion on the right side status post chest tube placement the analysis came back as metastatic carcinoma. Further studies are pending. CT scan of the chest indicated right hilar mass, right-sided 2.2 cm mediastinal lymphadenopathy. Consultation with Dr. Overton was done. Dr Overton spoke to Dr. Ector Hanley thoracic surgeon in [place] about possibility of VATS pleurodesis and recommonded to transfer the patient to [facility]. I spoke to Dr. ramon hospitalist they have agreed to take the patient without any reservations. Case was discussed with the patient and her they are willing for the patient to go to [place] for further management. Patient still have a right-sided chest tube at this moment. Physical Exam Vital Signs: Temp Pulse Resp BP Pulse Ox 98.2 F 99 17 120/65 96 10/16/19 08:34 10/16/19 08:34 10/16/19 08:34 10/16/19 08:34 10/16/19 08:34 Intake & Output 10/15/19 10/16/19 10/17/19 06:59 06:59 06:59 Intake Total 120 100 Output Total 2570 1220 Balance -2450 -1120 Weight 113.5 kg 124.5 kg General appearance: PRESENT: no acute distress, morbidly obese, other - Patient is legally blind Head exam: PRESENT: atraumatic Eye exam: PRESENT: other - Get a blind. Mouth exam: PRESENT: moist, tongue midline Teeth exam: PRESENT: poor dentation Neck exam: ABSENT: carotid bruit, JVD, lymphadenopathy, thyromegaly Respiratory exam: PRESENT: clear to auscultation carlita. ABSENT: rales, rhonchi, wheezes Cardiovascular exam: PRESENT: RRR. ABSENT: diastolic murmur, rubs, systolic murmur GI/Abdominal exam: PRESENT: normal bowel sounds, soft. ABSENT: distended, guarding, mass, organolmegaly, rebound, tenderness Rectal exam: PRESENT: deferred Neurological exam: PRESENT: alert, altered, oriented to person, oriented to place, other - Left-sided weakness secondary to previous stroke. Results Laboratory Results: 10/13/19 04:47 10/13/19 04:47 10/11/19 15:40 Pleural Fluid - Right Pleural Effusion Gram Stain - Final 10/11/19 15:40 Pleural Fluid - Right Pleural Effusion Body Fluid Culture - Final NO AEROBIC OR ANAEROBIC ORGANISMS RECOVERED 10/10/19 16:50 Troponin I < 0.012 NT-Pro-B Natriuret Pep 152 Impressions: Foot X-Ray 10/10/19 15:40 IMPRESSION: Diffuse soft tissue edema. Prominent calcaneal spur. 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 Near complete collapse of the right lung. Thoracentesis 10/11/19 00:00 IMPRESSION: CT fluoroscopy guided placement of a small bore (10 Faroese) right- sided chest tube as detailed above. Recommend placing catheter to gravity drainage. Plan Discharge Plan: Patient is accepted to [facility] once the bed is available she will be transferred there for further management. Time Spent: Greater than 30 Minutes
--- NOTE | 2019-10-16 09:40 | RADIOLOGY REPORT (SQ) ---
EXAM DESCRIPTION: CHEST SINGLE VIEW COMPLETED DATE/TIME: 10/16/2019 9:13 am REASON FOR STUDY: pleural effusion COMPARISON: CT-guided chest tube placement 10/11/2019 Chest films 10/10/2019, 10/12/2019, 10/14/2019 EXAM PARAMETERS: NUMBER OF VIEWS: One view. TECHNIQUE: Single frontal radiographic view of the chest acquired. RADIATION DOSE: NA LIMITATIONS: AP portable film FINDINGS: LUNGS AND PLEURA: Right lower lateral pleural space pigtail catheter unchanged. No right chest wall air. No right pneumothorax. There is persistent opacification of the lower half right hemithorax from a combination of middle and lower lobe collapse/consolidation and pleural fluid. Consider repeat CT chest for possible addition al chest tube placement. Left lung well inflated with bandlike atelectasis in the mid lung. No left pleural effusion. No pne umothorax. MEDIASTINUM AND HILAR STRUCTURES: No masses. Contour normal. HEART AND VASCULAR STRUCTURES: No gross cardiomegaly. BONES: No acute findings. HARDWARE: Right lower lateral chest tube OTHER: No other significant finding. IMPRESSION: Right lower lateral pleural space pigtail catheter unchanged. No right chest wall air o r pneumothorax. Persistent opacification of the right mid and lower chest, likely a combination of middle and lower l obe collapse and consolidation and residual pleural fluid. Follow-up chest CT recommended TECHNICAL DOCUMENTATION: JOB ID: [id number] [employer]- All Rights Reserved Reading location - IP/workstation name: [email or web address]
[2019-10-16 10:41] LABS: HEMATOCRIT 40.5 % (36.0-47.0); HEMOGLOBIN 13.2 g/dL (12.0-15.5); MEAN CORPUSCULAR HEMOGLOBIN 30.1 pg (27.0-33.4); MEAN CORPUSCULAR HGB CONC 32.5 g/dL (32.0-36.0); MEAN CORPUSCULAR VOLUME 93 fl (80-97); RED BLOOD COUNT 4.37 10^6/uL (3.72-5.28); WHITE BLOOD COUNT 8.5 10^3/uL (4.0-10.5)
[2019-10-16 10:48] LABS: PLATELET COUNT 393 10^3/uL (150-450)
[2019-10-16 10:50] LABS: ABSOLUTE LYMPHOCYTES# (MANUAL) 1.4 10^3/uL (0.5-4.7); ABSOLUTE MONOCYTES # (MANUAL) 0.5 10^3/uL (0.1-1.4); BASOPHILS % (MANUAL) 0 % (0-2); EOSINOPHILS % (MANUAL) 2 % (0-6); LYMPHOCYTES % (MANUAL) 16 % (13-45); MONOCYTES % (MANUAL) 6 % (3-13); SEGMENTED NEUTROPHILS % (MAN) 76 % (42-78); TOTAL CELLS COUNTED 100
[2019-10-16 10:54] LABS: ANISOCYTOSIS SLIGHT; POLYCHROMASIA SLIGHT
[2019-10-16 10:55] LABS: PLATELET CLUMPS PRESENT; PLATELET COMMENT ADEQUATE
[2019-10-16] MEDS: METOPROLOL SUCCINATE 50 MG TAB.SR.24H PO SCH (11:21)
[2019-10-16] MEDS: PANTOPRAZOLE SODIUM 40 MG TABLET.DR PO SCH (11:21)
[2019-10-16] MEDS: AMLODIPINE BESYLATE 5 MG TABLET PO SCH (11:21)
[2019-10-16] MEDS: HYDRALAZINE HCL 50 MG TABLET PO SCH ×2 (11:21→21:26)
[2019-10-16] MEDS: HYDROCHLOROTHIAZIDE 25 MG TABLET PO SCH (11:22)
[2019-10-16] MEDS: ASPIRIN 81 MG TABLET, ENT COATED PO SCH (11:22)
[2019-10-16] MEDS: FUROSEMIDE 40 MG TABLET PO SCH (11:22)
[2019-10-16 12:02] LABS: ALBUMIN 3.6 g/dL (3.5-5.0); ALKALINE PHOSPHATASE 143 U/L (38-126); ASPARTATE AMINO TRANSFERASE 34 U/L (14-36); BILIRUBIN,DIRECT 0.3 mg/dL (0.0-0.4); BILIRUBIN,TOTAL 0.9 mg/dL (0.2-1.3); BLOOD UREA NITROGEN 22 mg/dL (7-20); CALCIUM 9.3 mg/dL (8.4-10.2); CHLORIDE 80 mmol/L (98-107); GLUCOSE 91 mg/dL (75-110); POTASSIUM 3.8 mmol/L (3.6-5.0); TOTAL PROTEIN 7.6 g/dL (6.3-8.2)
[2019-10-16 12:11] LABS: ANION GAP 14 (5-19)
[2019-10-16 12:13] LABS: CARBON DIOXIDE 42 mmol/L (22-30)
[2019-10-16] MEDS: TAMSULOSIN HCL 0.4 MG CAP.SR.24H PO SCH (17:21)
[2019-10-16 20:21] VITALS: BP 104/60
== END 2019-10-16 22:55 | disposition short-term general hospital (02) | DRG 843 ==
LOC: ER 13:15 → EH 19:20 → 4N 22:29
PROVIDERS: ADMIT Family Medicine; ATTEND Family Medicine
PROC: 0W9930Z Drainage of Right Pleural Cavity with Drainage Device, Percutaneous Approach (ICD-10-PCS; principal; 2019-10-11)
DX: C80.1 Malignant (primary) neoplasm, unspecified (principal); J96.01 Acute respiratory failure with hypoxia; I69.354 Hemiplegia and hemiparesis following cerebral infarction affecting left non-dominant side; Z68.42 Body mass index [BMI] 45.0-49.9, adult; J91.0 Malignant pleural effusion; R59.0 Localized enlarged lymph nodes; I10 Essential (primary) hypertension; E78.5 Hyperlipidemia, unspecified; H54.8 Legal blindness, as defined in USA; E66.01 Morbid (severe) obesity due to excess calories; Z87.891 Personal history of nicotine dependence; E11.9 Type 2 diabetes mellitus without complications; Z83.3 Family history of diabetes mellitus; Z82.49 Family history of ischemic heart disease and other diseases of the circulatory system; Z79.899 Other long term (current) drug therapy; Z79.82 Long term (current) use of aspirin; Z79.02 Long term (current) use of antithrombotics/antiplatelets; Z88.8 Allergy status to other drugs, medicaments and biological substances; Z88.0 Allergy status to penicillin
CPT/HCPCS: 32551; 36415; 71045; 71250; 80048; 80053; 81001; 83615; 83735; 83880; 84157; 84484; 85025; 85027; 85610; 85730; 87070; 87075; 87205; 88305; 88313; 88341; 88342; 89050; 99285; C1729; C1769; C1894; J2250; J3010; J3490; J7620

== ENCOUNTER 2020-03-02 10:16 | Inpatient (IN) | payer OTHER, MEDICARE ==
--- NOTE | 2020-03-02 10:31 | ER Document Report ---
ED General - General Chief Complaint: General Weakness Stated Complaint: WEAKNESS Time Seen by Provider: 03/02/20 10:18 Primary Care Provider: JORDON DELGADILLO MD [Primary Care Provider] - Follow up as needed Mode of Arrival: Medic Information source: Patient, Emergency Med Personnel Notes: 74-year-old black female arrives with chief complaint of weakness and malaise and being treated for lung cancer and recently had a blood transfusion. Patient arrives with chronic left arm paresthesias status post CVA. She complains of some left upper chest pain on palpation per EMS. Patient advises she has no pain anywhere. Family called EMS because there was some LOC. Patient has stage IV lung cancer and has a right chest port. Patient has left arm that is painful . Son's name is Kun MolinaJr. Patient has temperature 99.2 with blood pressure 125/80 NST 102 90% room air and heart rate 118 lactic acid 1.8 TRAVEL OUTSIDE OF THE [place] IN LAST 30 DAYS: No - HPI Onset: This morning - Related Data Allergies/Adverse Reactions: lisinopril [Lisinopril] Allergy (Verified 05/09/19 07:15) morphine Allergy (Verified 05/09/19 07:15) Penicillins Allergy (Verified 05/09/19 07:15) atorvastatin Adverse Reaction (Verified 05/09/19 07:15) metformin Adverse Reaction (Verified 05/09/19 07:15) Past Medical History - General Information source: Emergency Med Personnel - Social History Smoking Status: Former Smoker Cigarette use (# per day): No Chew tobacco use (# tins/day): No Smoking Education Provided: No Frequency of alcohol use: None Drug Abuse: None Lives with: Family Family History: DM, Hypertension - Past Medical History Cardiac Medical History: Reports: Hx Hypercholesterolemia, Hx Hypertension Neurological Medical History: Reports: Hx Cerebrovascular Accident - Left-sided weakness Endocrine Medical History: Reports: Hx Diabetes Mellitus Type 2 - Not currently on medication per her primary doctor Renal/ Medical History: Denies: Hx Peritoneal Dialysis Psychiatric Medical History: Denies: Hx Depression Past Surgical History: Reports: Hx Gynecologic Surgery - Uterine ablation 2019, Other - L glaucoma procedure - Immunizations Hx Diphtheria, Pertussis, Tetanus Vaccination: No Review of Systems - Review of Systems Constitutional: See HPI, Malaise, Weakness, Recent illness EENT: No symptoms reported Cardiovascular: See HPI, Palpitations, Dizziness, Lightheaded Respiratory: No symptoms reported Gastrointestinal: No symptoms reported Genitourinary: No symptoms reported Female Genitourinary: No symptoms reported Musculoskeletal: No symptoms reported Skin: No symptoms reported Hematologic/Lymphatic: No symptoms reported Neurological/Psychological: No symptoms reported Physical Exam - Vital signs Vitals: Temp 99.7 F 03/02/20 10:18 Interpretation: Tachycardic, Febrile - General General appearance: Anxious - HEENT Head: Normocephalic, Atraumatic Eyes: Normal Pupils: PERRL Mouth/Lips: Normal Mucous membranes: Dry Pharynx: Normal Neck: Normal - Respiratory Respiratory status: No respiratory distress Chest status: Nontender Breath sounds: Normal Chest palpation: Normal - Cardiovascular Rhythm: Tachycardia Heart sounds: Normal auscultation Murmur: No - Abdominal Inspection: Normal Distension: No distension Bowel sounds: Normal Tenderness: Nontender Organomegaly: No organomegaly - Genitourinary External exam: Normal - Back Back: Normal - Extremities General upper extremity: Normal inspection General lower extremity: Edema - Neurological Neuro grossly intact: Yes - pt keeps eyes closed but very tight associations on questions Cognition: Normal Orientation: Disoriented to time Tariq Coma Scale Eye Opening: Spontaneous Tariq Coma Scale Verbal: Oriented Rosie Coma Scale Motor: Obeys Commands Rosie Coma Scale Total: 15 Speech: Normal Cranial nerves: Normal Cerebellar coordination: Normal Motor strength normal: LUE, RUE, LLE, RLE - Psychological Associated symptoms: Normal affect - Skin Skin Temperature: Warm Skin Moisture: Dry Skin Color: Other - Zurdo Wright RN.. As patient was getting in and out urinary catheter patient had stools which was cleaned up and it was noticed that patient had multiple romulo-sacral and gluteal fold skin lesions second-degree decubiti. Course - Vital Signs Vital signs: Temp Pulse Resp BP Pulse Ox 99.7 F 18 101/66 98 03/02/20 10:18 03/02/20 10:29 03/02/20 10:58 03/02/20 12:00 - Laboratory Result Diagrams: 03/02/20 10:55 03/02/20 10:55 Laboratory results interpreted by me: 03/02/20 03/02/20 03/02/20 10:50 10:55 10:55 WBC 0.5 L* RBC 2.83 L Hgb 8.7 L Hct 25.7 L Plt Count 30 L* Dundy % (Auto) 19.9 H Absolute Neuts (auto) 0.3 L Absolute Lymphs (auto) 0.1 L Sodium 134.8 L Creatinine 1.39 H Est GFR ( Amer) 45 L Est GFR (MDRD) Non-Af 37 L Calcium 7.7 L Creatine Kinase 147 H Albumin 2.6 L Urine Protein 100 H Urine Glucose (UA) 50 H Urine Blood SMALL H Urine Bilirubin SMALL H Urine Urobilinogen 4.0 H - Diagnostic Test Radiology reviewed: Reports reviewed - EKG Interpretation by Me EKG shows normal: Sinus rhythm Rate: Tachycardia Rhythm: NSR Critical Care Note - Critical Care Note Total time excluding time spent on procedures (mins): 90 Comments: I discussed this case with Dr. Garcia and she advises admission for potential blood transfusion and platelet transfusion. It was noted that her CT of head reveals a progression of infarction of right MCA. This phone call was at 1220. I attempted to call hospitalist for admission. I initially discussed this case with Dr. Ben Zapien who advised vancomycin and Zosyn for UTI and also advised Dr. Chacon to admit. I spoke with Dr. Chacon and he advises IMCU and immediate MRI Discharge - Discharge Clinical Impression: Progression of right MCA, Thrombocytopenia, Hemiparesis affecting left side as late effect of cerebrovascular accident, Legal blindness UTI (urinary tract infection) Qualifiers: Urinary tract infection type: site unspecified Hematuria presence: without hematuria Qualified Code(s): N39.0 - Urinary tract infection, site not specified Neutropenia Qualifiers: Neutropenia type: unspecified Qualified Code(s): D70.9 - Neutropenia, unspecified Condition: Fair Disposition: ADMITTED INPATIENT Admitting Provider: Oswaldo (Hospitalist) Unit Admitted: IMCU Additional Instructions: Transfer patient to IMCU per Dr. Chacon after MRI and consult Dr. Garcia Referrals: JORDON DELGADILLO MD [Primary Care Provider] - Follow up as needed
[2020-03-02 11:26] LABS: AMORPHOUS SEDIMENT,URINE TRACE /HPF; APPEARANCE,URINE CLOUDY; BILIRUBIN,URINE SMALL (NEGATIVE); COLOR,URINE AMBER; GLUCOSE, URINE 50 mg/dL (NEGATIVE); KETONES,URINE NEGATIVE (NEGATIVE); LEUKOCYTE ESTERASE,URINE NEGATIVE (NEGATIVE); NITRITE,URINE NEGATIVE (NEGATIVE); PROTEIN,URINE 100 mg/dL (NEGATIVE); URINE SPECIFIC GRAVITY 1.025
[2020-03-02 11:28] LABS: ABSOLUTE LYMPHOCYTES (AUTO) 0.1 10^3/uL (0.5-4.7); ABSOLUTE MONOCYTES (AUTO) 0.1 10^3/uL (0.1-1.4); ABSOLUTE NEUT (AUTO) 0.3 10^3/uL (1.7-8.2); BASOPHILS % (AUTO) 0.1 % (0-2); EOSINOPHILS % (AUTO) 0.1 % (0-6); HEMATOCRIT 25.7 % (36.0-47.0); HEMOGLOBIN 8.7 g/dL (12.0-15.5); LYMPHOCYTES % (AUTO) 20.4 % (13-45); MEAN CORPUSCULAR HEMOGLOBIN 30.6 pg (27.0-33.4); MEAN CORPUSCULAR HGB CONC 33.7 g/dL (32.0-36.0); MEAN CORPUSCULAR VOLUME 91 fl (80-97); MONOCYTES % (AUTO) 19.9 % (3-13); RED BLOOD COUNT 2.83 10^6/uL (3.72-5.28); SEGMENTED NEUTROPHILS % (AUTO) 59.5 % (42-78); TOTAL CELLS COUNTED % (AUTO) 100 %
[2020-03-02 11:34] LABS: ALBUMIN 2.6 g/dL (3.5-5.0); ALKALINE PHOSPHATASE 74 U/L (38-126); ANION GAP 6 (5-19); ASPARTATE AMINO TRANSFERASE 23 U/L (14-36); BILIRUBIN,DIRECT 0.3 mg/dL (0.0-0.4); BLOOD UREA NITROGEN 16 mg/dL (7-20); CALCIUM 7.7 mg/dL (8.4-10.2); CARBON DIOXIDE 27 mmol/L (22-30); CHLORIDE 102 mmol/L (98-107); CREATINE KINASE 147 U/L (30-135); GLUCOSE 103 mg/dL (75-110); POTASSIUM 3.6 mmol/L (3.6-5.0); TOTAL PROTEIN 6.4 g/dL (6.3-8.2)
--- NOTE | 2020-03-02 11:44 | RADIOLOGY REPORT (SQ) ---
EXAM DESCRIPTION: CT HEAD WITHOUT IMAGES COMPLETED DATE/TIME: 03/02/2020 11:11 am REASON FOR STUDY: ms changes COMPARISON: 02/11/2019 TECHNIQUE: Axial images acquired through the brain without intravenous contrast. Images reviewed wi th bone, brain and subdural windows. Additional sagittal and coronal reconstructions were generated. Images stored on PACS. All CT scanners at this facility use dose modulation, iterative reconstruction, and/or weight based d osing when appropriate to reduce radiation dose to as low as reasonably achievable (ALARA). [facility]: Dose Right [facility]: CareDose [facility]: Dose Right [facility]: Teradose 4D [facility]: [employer] RADIATION DOSE: CT Rad equipment meets quality standard of care and radiation dose reduction techniq ues were employed. CTDIvol: 53.2 mGy. DLP: 1044 mGy-cm.mGy. LIMITATIONS: None. FINDINGS: Progression of infarction in the right MCA territory. No significant mass effect. No hem orrhage. Posterior fossa unremarkable. IMPRESSION: Progression of known infarction in the right MCA territory. No evidence of hemorrhage o r mass effect. EVIDENCE OF ACUTE STROKE: NO. Subacute/chronic. TECHNICAL DOCUMENTATION: JOB ID: [id number] Quality ID # [id number]: Final reports with documentation of one or more dose reduction techniques (e.g., Au tomated exposure control, adjustment of the mA and/or kV according to patient size, use of iterative reconstruction technique) 2010 [employer]- All Rights Reserved Reading location - IP/workstation name: [email or web address]
[2020-03-02 11:46] LABS: CREATINE KINASE MB 2.41 ng/mL (<4.55)
[2020-03-02 11:48] LABS: TROPONIN I 0.069 ng/mL
[2020-03-02 12:01] LABS: PLATELET COUNT 30 10^3/uL (150-450); WHITE BLOOD COUNT 0.5 10^3/uL (4.0-10.5)
--- NOTE | 2020-03-02 12:10 | RADIOLOGY REPORT (SQ) ---
EXAM DESCRIPTION: CHEST SINGLE VIEW IMAGES COMPLETED DATE/TIME: 03/02/2020 11:11 am REASON FOR STUDY: tachycardia COMPARISON: 10/16/2019 EXAM PARAMETERS: NUMBER OF VIEWS: One view. TECHNIQUE: Single frontal radiographic view of the chest acquired. RADIATION DOSE: NA LIMITATIONS: None. FINDINGS: LUNGS AND PLEURA: Significant decrease in the right pleural effusions since the prior stud y. There is still moderate effusion with basilar opacity. Left lung is clear. No pneumothorax. MEDIASTINUM AND HILAR STRUCTURES: No masses. Contour normal. HEART AND VASCULAR STRUCTURES: Heart normal in size. Normal vasculature. BONES: No acute findings. HARDWARE: Venous access catheter tip at the cavoatrial junction. OTHER: No other significant finding. IMPRESSION: Persistent right basilar opacity with right effusion significantly improved. New venous access catheter. TECHNICAL DOCUMENTATION: JOB ID: [id number] 2010 [employer]- All Rights Reserved Reading location - IP/workstation name: [email or web address]
[2020-03-02 12:13] LABS: ANISOCYTOSIS SLIGHT; POIKILOCYTOSIS SLIGHT; SCHISTOCYTES SLIGHT
[2020-03-02 12:14] LABS: PLATELET COMMENT DECREASED
[2020-03-02] MEDS ORDERED: VANCOMYCIN HCL INJ 1000 MG VIAL IV ONE (12:37)
--- NOTE | 2020-03-02 13:51 | PDOC H&P ---
History of Present Illness Admission Date/PCP: 03/02/20 13:04 JORDON OVERTON MD Patient complains of: change in mental status History of Present Illness: Most of HPI obtained from patient's /POA. 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 Patient was brought into the hospital by EMS today for evaluation of change in mental status. Patient's reports that since last night patient has been moaning and making incomprehensible sounds. He also states that patient's face was s drooping. He states that patient has history of left hemiplegia from prior stroke. For the past 1 week, patient has not been eating or drinking sufficiently and has lost appetite. Patient is seen her normals prior state conversational and fully comprehensible and able to walk about 6 feet with some assistance by 2 people. Patient also notably received chemotherapy last on February 18 and had a transfusion on February 26. Past Medical History Endocrine Medical History: Reports: Diabetes Mellitus Type 2 - Not currently on medication per her primary doctor Malignancy Medical History: Reports: Ovarian Cancer - lung metastasis Psychiatric Medical History: Denies: Depression Hematology: Reports: Anemia Past Surgical History Past Surgical History: Reports: Other - L glaucoma procedure Social History Lives with: Family Smoking Status: Former Smoker Frequency of Alcohol Use: None Hx Recreational Drug Use: No Drugs: None Hx Prescription Drug Abuse: No - Advance Directive Resuscitation Status: Full Code Family History Family History: DM, Hypertension Parental Family History Reviewed: Yes Children Family History Reviewed: NA Sibling(s) Family History Reviewed.: NA Medication/Allergy Home Medications: Metoprolol Succinate [Toprol Xl 50 mg Tab.sr] 25 mg PO DAILY 05/09/19 Pantoprazole Sodium [Protonix [address] Tablet] 40 mg PO ACBRKFST 05/09/19 Tamsulosin HCl [Flomax 0.4 mg Cap.sr] 0.4 mg PO QPM 05/09/19 Folic Acid [Folvite 1 mg Tablet] 1 mg PO DAILY 03/02/20 Allergies/Adverse Reactions: lisinopril [Lisinopril] Allergy (Verified 05/09/19 07:15) morphine Allergy (Verified 05/09/19 07:15) Penicillins Allergy (Verified 05/09/19 07:15) atorvastatin Adverse Reaction (Verified 05/09/19 07:15) metformin Adverse Reaction (Verified 05/09/19 07:15) Review of Systems ROS unobtainable: Due to mental status Physical Exam Vital Signs: Temp Pulse Resp BP Pulse Ox 99 F 20 120/80 99 03/02/20 13:00 03/02/20 13:27 03/02/20 13:27 03/02/20 13:27 Intake & Output 03/01/20 03/02/20 03/03/20 06:59 06:59 06:59 Weight 100.8 kg General appearance: PRESENT: cooperative - fairly, morbidly obese Head exam: PRESENT: normocephalic Eye exam: ABSENT: PERRLA - Right pupil seems slightly bigger than left pupil. Both are reactive to light., scleral icterus Mouth exam: PRESENT: neck supple Respiratory exam: PRESENT: chest wall tenderness, clear to auscultation carlita, decreased breath sounds - rt lung base, symmetrical, tachypnea. ABSENT: stridor, wheezes Cardiovascular exam: PRESENT: +S1, +S2, systolic murmur - RUSB, tachycardia. ABSENT: irregular rhythm GI/Abdominal exam: PRESENT: soft. ABSENT: rebound, rigid, tenderness Neurological exam: PRESENT: alert, awake, oriented to person, motor sensory deficit - 0/5 in LUE. 3/5 in RUE, unable to follow instructions to lift legs off bed, aphasic - significant expressive aphasia and mild receptive aphasia, other - Patient is able to follow some instructions but not all. Able to lift right arm on verbal command. Occular motions seem intact however right pupil slightly bigger. Not responding to commands to smile. Moaning. Sentences/phrases are incomprehensible.. ABSENT: oriented to place, oriented to time, oriented to situation Psychiatric exam: ABSENT: agitated, anxious Results Laboratory Results: 03/02/20 10:55 03/02/20 10:55 03/02/20 03/02/20 03/02/20 10:50 10:55 10:55 WBC 0.5 L* RBC 2.83 L Hgb 8.7 L Hct 25.7 L MCV 91 MCH 30.6 MCHC 33.7 RDW 14.0 Plt Count 30 L* Seg Neutrophils % 59.5 Sodium 134.8 L Potassium 3.6 Chloride 102 Carbon Dioxide 27 Anion Gap 6 BUN 16 Creatinine 1.39 H Est GFR ( Amer) 45 L Glucose 103 Lactic Acid Calcium 7.7 L Total Bilirubin 1.0 AST 23 Alkaline Phosphatase 74 Total Protein 6.4 Albumin 2.6 L Urine Color MAGGI Urine Appearance CLOUDY Urine pH 5.0 Ur Specific [place] 1.025 Urine Protein 100 H Urine Glucose (UA) 50 H Urine Ketones NEGATIVE Urine Blood SMALL H Urine Nitrite NEGATIVE Ur Leukocyte Esterase NEGATIVE Urine WBC (Auto) 33 Urine RBC (Auto) 17 03/02/20 10:55 WBC RBC Hgb Hct MCV MCH MCHC RDW Plt Count Seg Neutrophils % Sodium Potassium Chloride Carbon Dioxide Anion Gap BUN Creatinine Est GFR ( Amer) Glucose Lactic Acid 1.7 Calcium Total Bilirubin AST Alkaline Phosphatase Total Protein Albumin Urine Color Urine Appearance Urine pH Ur Specific [place] Urine Protein Urine Glucose (UA) Urine Ketones Urine Blood Urine Nitrite Ur Leukocyte Esterase Urine WBC (Auto) Urine RBC (Auto) 03/02/20 03/02/20 10:55 10:55 Creatine Kinase 147 H CK-MB (CK-2) 2.41 Troponin I 0.069 Impressions: Chest X-Ray 03/02/20 10:52 IMPRESSION: Persistent right basilar opacity with right effusion significantly improved. New venous access catheter. Head CT 03/02/20 10:54 IMPRESSION: Progression of known infarction in the right MCA territory. No evidence of hemorrhage or mass effect. EVIDENCE OF ACUTE STROKE: NO. Subacute/chronic. Assessment and Plan - Diagnosis (1) Acute ischemic stroke Is this a current diagnosis for this admission?: Yes Plan: Patient has almost certainly had a new ischemic stroke. CT head shows no evidence of bleeding. Will evaluate further with MRI of the brain. Acute stroke order set deployed. Patient is outside TPA window. NIHSS is currently 19. However some may be from old stroke. New symptoms after conversation with patient's seem to be aphasia, dysarthria, complete paralysis of the left arm [paresis noted from prior]. N.p.o. Bedrest, swallow screen, speech/physical/occupational therapy evaluation. Permissive hypertension. Rectal aspirin. Monitor on telemetry. Check echo and carotid ultrasound. 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 GI and DVT prophylaxis (2) Pancytopenia due to antineoplastic chemotherapy Is this a current diagnosis for this admission?: Yes Plan: Oncology consulted and Dr. Romero recommends monitoring blood counts and no need for administration of granulocyte stimulating factor as of now. Continue to monitor CBC. Patient notably did receive erythropoietin and possibly a blood transfusion in Dr. Overton's office on 02/27/2020 (3) Stage IV carcinoma of ovary Qualifiers: Laterality: unspecified laterality Qualified Code(s): C56.9 - Malignant neoplasm of unspecified ovary Is this a current diagnosis for this admission?: Yes Plan: Oncology consulted. Discussed with Dr. Lau. 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 Diagnosed September 2019. Receiving chemo with carboplatin and paclitaxel third cycle on 02/19/2020. (4) Malignant pleural effusion Is this a current diagnosis for this admission?: Yes Plan: Right lower lobe opacities noted. I suspect that this is likely secondary to patient's remnants of right pleural effusion from malignant spread that was noted on prior visit last year will monitor.. Pulse ox is adequate on room air. (5) Morbid obesity with BMI of 40.0-44.9, adult Is this a current diagnosis for this admission?: Yes - Time Time Spent with patient: 35 or more minutes
[2020-03-02] MEDS ORDERED: DEXTROSE 50%-WATER 25 GM/50 ML DISP.SYRIN IV PRN ×2 (14:05)
[2020-03-02] MEDS ORDERED: DEXTROSE 40% GEL 15 GM TUBE PO PRN ×2 (14:05)
[2020-03-02] MEDS ORDERED: GLUCAGON,HUMAN RECOMB 1 MG INJ SUBCUT PRN (14:05)
[2020-03-02] MEDS ORDERED: ONDANSETRON HCL INJ/PF 4 MG/2 ML SDV IV PRN (14:05)
--- NOTE | 2020-03-02 15:20 | ADVANCED CARE ---
- Diagnosis (1) Acute ischemic stroke Diagnosis Current: Yes (2) Pancytopenia due to antineoplastic chemotherapy Diagnosis Current: Yes (3) Stage IV carcinoma of ovary Diagnosis Current: Yes Attendance: Discussed with patient's and POA over the phone Resuscitation Status: Full Code Discussion: Discussed elaborately CODE STATUS. Also elaborately discussed patient's condition and how this could decompensate. Patient's states that he is her decision-maker. He states that patient does not have a living well or advanced directive. He states that he would like full treatment and all possible interventions done if deemed appropriate. He also states that he would like patient to be a full code. He is also okay with intubation even outside the setting of cardiac arrest if deemed warranted. We will respect his wishes. Time Spent: 17mins
--- NOTE | 2020-03-02 15:37 | PDOC CONSULTATION ---
Consultation Consult Date: 03/02/20 Provider Consulted: RUBY GARVIN Consult reason:: Hematology/Oncology consultation was requested for patient with Stage IV ovarian cancer and mets to the lungs admitted with confusion and pancytopenia. History of Present Illness Admission Date/PCP: 03/02/20 13:04 JORDON OVERTON MD History of Present Illness: Due to COVID-19 restrictions, I was not able to see the patient in the hospital. I have tried to reach her , but was noly able to speak with Dr. Chacon and Dr. Fuentes who have seen her earlier today. ASIM MUÑIZ is a 74 year old female who is followed by Dr. Overton for her Stage IV ovarian cancer which was diagnosed in Sep 2019 when she presented with a pleural effusion. After much testing, this was determined to be metastatic ovarian cancer and she was started on palliative chemotherapy with paclitaxel and carboplatin. She received cycle 3 Day 1 on 02/19/2020 and then received Erythropoetin 40,000 units on 02/26/2020 for anemia, as well as blood transfusion. She presented to the ED today with weakness and some confusion. No know fevers at home. She was found to have pancytopenia with ANC of 0.3 and PLT 30. No active bleeding. Her Cr is also increased at 1.39 up from her baseline of 0.7 a few days ago. Past Medical History Cardiac Medical History: Reports: Hyperlipidema, Hypertension Neurological Medical History: Reports: Ischemic CVA Endocrine Medical History: Reports: Diabetes Mellitus Type 2 - Not currently on medication per her primary doctor Malignancy Medical History: Reports: Ovarian Cancer - lung metastasis Psychiatric Medical History: Denies: Depression Hematology: Reports: Anemia Past Surgical History Past Surgical History: Reports: Other - L glaucoma procedure, VATS procedure Social History Lives with: Family Smoking Status: Former Smoker Frequency of Alcohol Use: None Hx Recreational Drug Use: No Drugs: None Hx Prescription Drug Abuse: No - Advance Directive Resuscitation Status: Full Code Family History Family History: DM, Hypertension Parental Family History Reviewed: Yes Children Family History Reviewed: No Sibling(s) Family History Reviewed.: No Medication/Allergy Home Medications: Metoprolol Succinate [Toprol Xl 50 mg Tab.sr] 25 mg PO DAILY 05/09/19 Pantoprazole Sodium [Protonix [address] Tablet] 40 mg PO ACBRKFST 05/09/19 Tamsulosin HCl [Flomax 0.4 mg Cap.sr] 0.4 mg PO QPM 05/09/19 Folic Acid [Folvite 1 mg Tablet] 1 mg PO DAILY 03/02/20 Allergies/Adverse Reactions: lisinopril [Lisinopril] Allergy (Verified 05/09/19 07:15) morphine Allergy (Verified 05/09/19 07:15) Penicillins Allergy (Verified 05/09/19 07:15) atorvastatin Adverse Reaction (Verified 05/09/19 07:15) metformin Adverse Reaction (Verified 05/09/19 07:15) Review of Systems ROS unobtainable: Other Physical Exam Vital Signs: Temp Pulse Resp BP Pulse Ox 99 F 20 120/80 99 03/02/20 13:00 03/02/20 13:27 03/02/20 13:27 03/02/20 13:27 Intake & Output 03/01/20 03/02/20 03/03/20 06:59 06:59 06:59 Weight 100.8 kg Exam: Due to COVID-19 restrictions, full exam was not performed. Results Laboratory Results: 03/02/20 10:55 03/02/20 10:55 03/02/20 03/02/20 03/02/20 10:50 10:55 10:55 WBC 0.5 L* RBC 2.83 L Hgb 8.7 L Hct 25.7 L MCV 91 MCH 30.6 MCHC 33.7 RDW 14.0 Plt Count 30 L* Seg Neutrophils % 59.5 Sodium 134.8 L Potassium 3.6 Chloride 102 Carbon Dioxide 27 Anion Gap 6 BUN 16 Creatinine 1.39 H Est GFR ( Amer) 45 L Glucose 103 Lactic Acid Calcium 7.7 L Total Bilirubin 1.0 AST 23 Alkaline Phosphatase 74 Total Protein 6.4 Albumin 2.6 L Urine Color MAGGI Urine Appearance CLOUDY Urine pH 5.0 Ur Specific [place] 1.025 Urine Protein 100 H Urine Glucose (UA) 50 H Urine Ketones NEGATIVE Urine Blood SMALL H Urine Nitrite NEGATIVE Ur Leukocyte Esterase NEGATIVE Urine WBC (Auto) 33 Urine RBC (Auto) 17 03/02/20 10:55 WBC RBC Hgb Hct MCV MCH MCHC RDW Plt Count Seg Neutrophils % Sodium Potassium Chloride Carbon Dioxide Anion Gap BUN Creatinine Est GFR ( Amer) Glucose Lactic Acid 1.7 Calcium Total Bilirubin AST Alkaline Phosphatase Total Protein Albumin Urine Color Urine Appearance Urine pH Ur Specific [place] Urine Protein Urine Glucose (UA) Urine Ketones Urine Blood Urine Nitrite Ur Leukocyte Esterase Urine WBC (Auto) Urine RBC (Auto) 03/02/20 03/02/20 10:55 10:55 Creatine Kinase 147 H CK-MB (CK-2) 2.41 Troponin I 0.069 Impressions: Chest X-Ray 03/02/20 10:52 IMPRESSION: Persistent right basilar opacity with right effusion significantly improved. New venous access catheter. Head CT 03/02/20 10:54 IMPRESSION: Progression of known infarction in the right MCA territory. No evidence of hemorrhage or mass effect. EVIDENCE OF ACUTE STROKE: NO. Subacute/chronic. Assessment & Plan - Diagnosis (1) Acute renal insufficiency Is this a current diagnosis for this admission?: Yes Plan: Most likely due to dehydration. She is receiving IV fluids. Will monitor. (2) Hemiparesis affecting left side as late effect of cerebrovascular accident Is this a current diagnosis for this admission?: Yes Plan: Await results of brain MRI (3) Pancytopenia due to antineoplastic chemotherapy Is this a current diagnosis for this admission?: Yes Plan: Currently afebrile, but watch for fever. Neutropenic precautions. After fluids, she may require blood transfusion, although I would hold off for now. She may benefit from G-CSF, although I would hold off unless febrile. I would expect counts to recover within the next 5-7 days. (4) Stage IV carcinoma of ovary Qualifiers: Laterality: unspecified laterality Qualified Code(s): C56.9 - Malignant neoplasm of unspecified ovary Is this a current diagnosis for this admission?: Yes Plan: She would not be due for further chemo until March 11. Will discuss adjusting the dose of chemo prior to her next dose, as outpatient. Patient's has requested Full Code. Recent lung imaging shows improvement in the consolidation. Hopefully, this is a sign that she is responding to treatment. Follow-up CT had been planned in about 3 week to evaluate response to treatment. Will discuss further with patient and family.
--- NOTE | 2020-03-02 15:42 | RADIOLOGY REPORT (SQ) ---
EXAM DESCRIPTION: MRI HEAD COMBO IMAGES COMPLETED DATE/TIME: 03/02/2020 3:23 pm REASON FOR STUDY: AMS, loss of consc. Stroke vs metastasis. W/WO COMPARISON: CT scan 03/02/2020 TECHNIQUE: Multiplanar imaging includes noncontrasted T1, T2, FLAIR, Diffusion with ADC map and post gadolinium contrast T1 sequences. Images stored on PACS. CONTRAST TYPE AND DOSE: 20 mL Dotarem RENAL FUNCTION: Not indicated. ACR Type II contrast agent associated with few, if any, unconfounded cases of NSF LIMITATIONS: Severely compromised by motion. FINDINGS: ANATOMY: No anomalies. Normal vascular flow voids. Pituitary fossa normal. CSF SPACES: Atrophy-induced prominence of CSF spaces and ventricles. CEREBRUM: High-signal intensity lesions scattered throughout the white matter on FLAIR imaging with d istribution suggesting chronic micro-vascular ischemic change. No evidence of hemorrhage, mass, extra axial fluid collection or acute ischemic change. No enhancing lesions. Contrast enhanced images very limited. POSTERIOR FOSSA: No signal alteration. No hemorrhage. No edema, masses, or mass effect. Internal ana m tory canals, cerebello-pontine angles, mastoids normal. No enhancing lesions. ORBITS: No masses. Globes normal. PARANASAL SINUSES: No fluid levels. Mucosa normal. DIFFUSION: Multiple peripheral areas of restricted diffusion in the right hemispheric MCA distributio n. Acute infarction. OTHER: No other significant finding. IMPRESSION: Multiple small infarcts in the right parietal lobe which are acute. This is extension o f the known right parietal infarct. Very limited images with enhancement but no obvious enhancing lesions. Atrophy and microvascular ischemia. EVIDENCE OF ACUTE STROKE: Yes RIGHT MCA. TECHNICAL DOCUMENTATION: JOB ID: [id number] [employer]- All Rights Reserved Reading location - IP/workstation name: [email or web address]
[2020-03-02] MEDS ORDERED: ASPIRIN 300 MG SUPP, RECTAL PR ONE (17:35)
[2020-03-02] MEDS: NORMAL SALINE 1000 ML 1,000 ML IV PRN (17:40)
[2020-03-02] MEDS: ASPIRIN 300 MG SUPP, RECTAL PR SCH (17:40)
[2020-03-02] MEDS: INSULIN LISPRO 100 UNIT/ML 3 ML VIAL SUBCUT SCH (17:41)
--- NOTE | 2020-03-02 21:37 | EKG REPORT ---
SEVERITY:- ABNORMAL ECG - SINUS TACHYCARDIA LEFT ATRIAL ABNORMALITY REPOL ABNRM SUGGESTS ISCHEMIA, INFERIOR LEADS : Confirmed by: Lio Helms MD 02-Mar-2020 21:37:01
[2020-03-02] MEDS ORDERED: FAMOTIDINE INJ/PF 20 MG/2 ML SDV IV SCH (22:00)
[2020-03-02] MEDS: FAMOTIDINE INJ/PF 20 MG/2 ML SDV IV SCH (22:55)
[2020-03-02] MEDS ORDERED: VANCOMYCIN HCL INJ 1000 MG VIAL IV PRN (23:02)
[2020-03-02] MEDS ORDERED: VANCOMYCIN HCL 1,000 MG in DEXTROSE 5%-WATER 250 ML IV ONE (23:15)
[2020-03-03] MEDS: INSULIN LISPRO 100 UNIT/ML 3 ML VIAL SUBCUT SCH ×2 (00:23→06:25)
[2020-03-03 06:06] LABS: ABSOLUTE LYMPHOCYTES (AUTO) 0.1 10^3/uL (0.5-4.7); ABSOLUTE MONOCYTES (AUTO) 0.1 10^3/uL (0.1-1.4); ABSOLUTE NEUT (AUTO) 0.4 10^3/uL (1.7-8.2); EOSINOPHILS % (AUTO) 1.8 % (0-6); HEMATOCRIT 21.9 % (36.0-47.0); LYMPHOCYTES % (AUTO) 21.6 % (13-45); MEAN CORPUSCULAR HEMOGLOBIN 30.6 pg (27.0-33.4); MEAN CORPUSCULAR HGB CONC 33.9 g/dL (32.0-36.0); MEAN CORPUSCULAR VOLUME 90 fl (80-97); MONOCYTES % (AUTO) 12.7 % (3-13); RED BLOOD COUNT 2.42 10^6/uL (3.72-5.28); SEGMENTED NEUTROPHILS % (AUTO) 63.9 % (42-78); TOTAL CELLS COUNTED % (AUTO) 100 %
[2020-03-03 06:07] LABS: INTERNATIONAL RATION (INR) 1.21; PROTHROMBIN TIME 15.4 SEC (11.4-15.4)
[2020-03-03 06:08] LABS: PARTIAL THROMBOPLASTIN TIME 46.9 SEC (23.5-35.8)
[2020-03-03 06:20] LABS: ALBUMIN 2.1 g/dL (3.5-5.0); ALKALINE PHOSPHATASE 61 U/L (38-126); ANION GAP 6 (5-19); ASPARTATE AMINO TRANSFERASE 21 U/L (14-36); BILIRUBIN,DIRECT 0.2 mg/dL (0.0-0.4); BILIRUBIN,TOTAL 0.8 mg/dL (0.2-1.3); BLOOD UREA NITROGEN 21 mg/dL (7-20); CALCIUM 7.5 mg/dL (8.4-10.2); CARBON DIOXIDE 27 mmol/L (22-30); CHLORIDE 101 mmol/L (98-107); CHOLESTEROL 192.64 mg/dL (0-200); GLUCOSE 118 mg/dL (75-110); POTASSIUM 3.3 mmol/L (3.6-5.0); TOTAL PROTEIN 5.3 g/dL (6.3-8.2); TRIGLYCERIDES 134 mg/dL (<150)
[2020-03-03 06:30] LABS: DIRECT LDL 53 mg/dL (<100)
[2020-03-03 06:35] LABS: VLDL CHOLESTEROL 26.8 mg/dL (10-31)
[2020-03-03 06:50] LABS: WHITE BLOOD COUNT 0.7 10^3/uL (4.0-10.5)
[2020-03-03 06:51] LABS: HEMOGLOBIN 7.4 g/dL (12.0-15.5); PLATELET COUNT 13 10^3/uL (150-450)
[2020-03-03 06:53] LABS: ANISOCYTOSIS SLIGHT; OVALOCYTES SLIGHT; PLATELET COMMENT DECREASED; POIKILOCYTOSIS SLIGHT
[2020-03-03] MEDS: MAGNESIUM SULFATE/D5W 1 GM/100 ML RTUPB IV SCH ×3 (08:13→10:24)
[2020-03-03] MEDS: NORMAL SALINE 1000 ML 1,000 ML IV PRN (09:00)
[2020-03-03] MEDS: METOPROLOL SUCCINATE 25 MG TAB.SR.24H PO SCH (09:18)
[2020-03-03] MEDS: POTASSI CL 20 MEQ/50 ML RIDER 20 MEQ/50 ML RTUPB IV SCH ×2 (09:21→11:29)
[2020-03-03] MEDS ORDERED: ENOXAPARIN SODIUM INJ 40 MG/0.4 ML DISP.SYRIN SUBCUT SCH (10:00)
[2020-03-03] MEDS ORDERED: METOPROLOL SUCCINATE 50 MG TAB.SR.24H PO SCH (10:00)
[2020-03-03] MEDS: ACETAMINOPHEN 650 MG SUPP.RECT PR PRN (12:09)
[2020-03-03] MEDS: ASPIRIN 300 MG SUPP, RECTAL PR SCH (12:10)
[2020-03-03] MEDS ORDERED: PHARMACY COMMUNICATION ORDER MC NR (12:30)
--- NOTE | 2020-03-03 13:29 | PDOC PROGRESS REPORT ---
Subjective Subjective:: Patient was for some commands today but was very drowsy. Not very intelligible during my encounter but informed by RN that patient was talking a little bit better with her son over the phone today. Reason For Visit: ACUTE STROKE,PANCYTOPENIA Physical Exam Vital Signs: Temp Pulse Resp BP Pulse Ox 98.0 F 102 H 16 146/72 H 94 03/03/20 11:32 03/03/20 11:32 03/03/20 11:32 03/03/20 11:32 03/03/20 11:32 Pulse Oximeter Continuous Start: 03/02/20 14:07 Freq: RTQ4 Status: Hold Protocol: Document 03/02/20 16:00 J (Rec: 03/02/20 16:14 J [email or web address]) Pulse Oximetry Assessment Oxygen Saturation (92-100) 94 Fraction of Inspired Oxygen (FIO2) 21 Equipment Usage Equipment Standby Continuous SpO2 Machine # 0 Additional RT Notes Other pt on nurse monitor Intake & Output 03/02/20 03/03/20 03/04/20 06:59 06:59 06:59 Intake Total 251 250 Balance 251 250 Weight 100.4 kg General appearance: PRESENT: no acute distress, cooperative, morbidly obese Neck exam: ABSENT: JVD Respiratory exam: PRESENT: chest wall tenderness, rhonchi - upper airway gargles, symmetrical, unlabored. ABSENT: tachypnea, wheezes Cardiovascular exam: PRESENT: RRR, +S1, +S2, systolic murmur. ABSENT: tachycardia GI/Abdominal exam: PRESENT: soft. 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 ABSENT: oriented to place, oriented to time, oriented to situation Results Laboratory Results: 03/03/20 05:20 03/03/20 05:20 03/03/20 03/03/20 05:20 05:20 WBC 0.7 L* RBC 2.42 L Hgb 7.4 L Hct 21.9 L MCV 90 MCH 30.6 MCHC 33.9 RDW 14.0 Plt Count 13 L* D Seg Neutrophils % 63.9 Sodium 133.9 L Potassium 3.3 L Chloride 101 Carbon Dioxide 27 Anion Gap 6 BUN 21 H Creatinine 1.67 H Est GFR ( Amer) 36 L Glucose 118 H Calcium 7.5 L Magnesium 1.1 L* Total Bilirubin 0.8 AST 21 Alkaline Phosphatase 61 Total Protein 5.3 L Albumin 2.1 L Triglycerides 134 Cholesterol 192.64 LDL Cholesterol Direct 53 VLDL Cholesterol 26.8 HDL Cholesterol 46 03/02/20 10:55 Blood Blood Culture (PCR) - Final Staphylococcus Aureus 03/02/20 13:05 Blood Blood Culture (PCR) - Final Staphylococcus Aureus 03/02/20 03/02/20 10:55 10:55 Creatine Kinase 147 H CK-MB (CK-2) 2.41 Troponin I 0.069 Impressions: Head MRI 03/02/20 00:00 IMPRESSION: Multiple small infarcts in the right parietal lobe which are acute. This is extension of the known right parietal infarct. Very limited images with enhancement but no obvious enhancing lesions. Atrophy and microvascular ischemia. EVIDENCE OF ACUTE STROKE: Yes RIGHT MCA. Chest X-Ray 03/02/20 10:52 IMPRESSION: Persistent right basilar opacity with right effusion significantly improved. New venous access catheter. Head CT 03/02/20 10:54 IMPRESSION: Progression of known infarction in the right MCA territory. No evidence of hemorrhage or mass effect. EVIDENCE OF ACUTE STROKE: NO. Subacute/chronic. Assessment and Plan - Diagnosis (1) Acute ischemic stroke Is this a current diagnosis for this admission?: Yes Plan: Acute infarcts confirmed on MRI once again within the right MCA territory. Has known history of right M1 occlusion and vascular stenosis on the left vert arter y on MRA after prior stroke in 2019. New symptoms seem to be aphasia, dysarthria, complete paralysis of the left arm [CVA in 2019 left here with LUE and LLE paresis]. Evaluated by speech therapy and recommending maintenance of n.p.o given dysphagia with MBBS tomorrow. PT and Occupational Therapy Telemetry reviewed showing evidence of A. fib/a flutter. Did show some PVCs. Rectal aspirin. Will start on p.o. Plavix once we have feeding access. Check echo and carotid ultrasound. GI and DVT prophylaxis We will plan towards placing Dobbhoff tube starting tube feeds today if possible. (2) Pancytopenia due to antineoplastic chemotherapy Is this a current diagnosis for this admission?: Yes Plan: Patient notably did receive erythropoietin and possibly a blood transfusion in Dr. Overton's office on 02/27/2020. In light of bacteremia, I will start patient on filgrastim daily until ANC is over 1000. Discussed with Oncology. Monitor CBC closely and will give platelet transfusion if platelet count drops below 10,000. Type and screen. (3) Staphylococcus aureus bacteremia Is this a current diagnosis for this admission?: Yes Plan: High burden bacteremia resulted in less than 24 hours. Patient also awaits cardiac murmur [uncertain if chronic] will need echocardiogram. Will start TTE. Potential source is from skin breakdown/decubitus ulcers. ? If right lung base opacity is a true pneumonia or simply remnants from malignant pleural effusion. We will treat with Vanco. Repeat blood cultures tomorrow. (4) Proximal renal tubular dysfunction Is this a current diagnosis for this admission?: Yes Plan: Urinalysis showing glucosuria, proteinuria. Blood glucose level is adequate. 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 Maintain on fluids and monitor I's and O's strictly. Creatinine is trending up. Bladder scan revealed 301 cc and Hull has been placed. (5) Stage IV carcinoma of ovary Qualifiers: Laterality: unspecified laterality Qualified Code(s): C56.9 - Malignant neoplasm of unspecified ovary Is this a current diagnosis for this admission?: Yes Plan: Oncology consulted. Discussed with Dr. Lau. 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 Diagnosed September 2019. Receiving chemo with carboplatin and paclitaxel third cycle on 02/19/2020. (6) Malignant pleural effusion Is this a current diagnosis for this admission?: Yes Plan: Right lower lobe opacities noted. I suspect that this is likely secondary to patient's remnants of right pleural effusion from malignant spread that was noted on prior visit last year will monitor. Pulse ox is adequate on room air. (7) Morbid obesity with BMI of 40.0-44.9, adult Is this a current diagnosis for this admission?: Yes - Time Time Spent with patient: 15-24 minutes
[2020-03-03] MEDS: FILGRASTIM-AAFI 300 MCG/0.5 ML SYRINGE SUBCUT SCH (15:18)
[2020-03-03] MEDS: DEXTROSE 5%-NORMAL SALINE 1,000 ML IV PRN (17:58)
[2020-03-03] MEDS: FAMOTIDINE INJ/PF 20 MG/2 ML SDV IV SCH (22:22)
[2020-03-04] MEDS: DEXTROSE 5%-NORMAL SALINE 1,000 ML IV PRN ×2 (05:49→19:00)
[2020-03-04 06:26] LABS: HEMATOCRIT 22.3 % (36.0-47.0); MEAN CORPUSCULAR HGB CONC 34.3 g/dL (32.0-36.0); MEAN CORPUSCULAR VOLUME 90 fl (80-97); RED BLOOD COUNT 2.47 10^6/uL (3.72-5.28)
[2020-03-04 06:42] LABS: BLOOD UREA NITROGEN 22 mg/dL (7-20); CARBON DIOXIDE 26 mmol/L (22-30); CHLORIDE 106 mmol/L (98-107); GLUCOSE 134 mg/dL (75-110)
[2020-03-04 06:47] LABS: ANION GAP 5 (5-19); POTASSIUM 3.4 mmol/L (3.6-5.0)
[2020-03-04 06:57] LABS: PLATELET COUNT 5 10^3/uL (150-450)
[2020-03-04 06:59] LABS: HEMOGLOBIN 7.7 g/dL (12.0-15.5); WHITE BLOOD COUNT 1.1 10^3/uL (4.0-10.5)
[2020-03-04 07:02] LABS: ABSOLUTE LYMPHOCYTES# (MANUAL) 0.3 10^3/uL (0.5-4.7); ABSOLUTE MONOCYTES # (MANUAL) 0.1 10^3/uL (0.1-1.4); BAND NEUTROPHILS % (MANUAL) 8 % (3-5); BASOPHILS % (MANUAL) 0 % (0-2); EOSINOPHILS % (MANUAL) 0 % (0-6); LYMPHOCYTES % (MANUAL) 28 % (13-45); MONOCYTES % (MANUAL) 8 % (3-13); RBC MORPHOLOGY COMMENT NORMO-CYTIC/CHROMIC; SEGMENTED NEUTROPHILS % (MAN) 56 % (42-78); TOTAL CELLS COUNTED 50
[2020-03-04 07:03] LABS: PLATELET COMMENT DECREASED
[2020-03-04] MEDS ORDERED: VANCOMYCIN HCL 750 MG in DEXTROSE 5%-WATER 250 ML IV SCH (10:00)
--- NOTE | 2020-03-04 11:15 | RADIOLOGY REPORT (SQ) ---
EXAM DESCRIPTION: COOKIE SWALLOW IMAGES COMPLETED DATE/TIME: 03/04/2020 10:53 am REASON FOR STUDY: dysphagia, CVA COMPARISON: None. TECHNIQUE: Videofluoroscopic swallowing examination was performed in conjunction with speech patholo gy. Videofluoroscopic imaging was obtained and reviewed and these are the findings: RADIATION DOSE: 1 minutes 46 seconds of fluoroscopy was used. 1 images saved to PACS. LIMITATIONS: None FINDINGS: The patient was brought into the fluoro room and placed upright on a modified barium swall ow chair. The patient was then given multiple consistencies mixed with barium to swallow under live fluoroscopic video guidance. According to the Speech Pathologist there was laryngeal penetration wit h thin liquids. No aspiration. IMPRESSION: LARYNGEAL PENETRATION WITH THIN LIQUIDS. NO ASPIRATION SEEN. PLEASE SEE SPEECH PATHOLOG IST REPORT FOR OTHER FINDINGS AND RECOMMENDATIONS. COMMENT: Quality ID [id number]: Final reports for procedures using fluoroscopy that document radiation exp osure indices, or exposure time and number of fluorographic images (if radiation exposure indices are not available) TECHNICAL DOCUMENTATION: JOB ID: [id number] 2010 [employer]- All Rights Reserved Reading location - IP/workstation name: [email or web address]
--- NOTE | 2020-03-04 11:15 | ST Inp Modified Barium Swallow ---
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 Current diagnoses include acute ischemic stroke, acute renal insufficiency most likely due to dehydration (patient is receiving IV fluids), hemiparesis affecting left side as effect of CVA (from prior stroke), pancytopenia due to antineoplastic chemotherapy. Patient reported to not be eating or drinking adequately for past week. Patient's baseline communication status reported to be conversational. New symptoms appear to be aphasia, dysarthria, and complete paralysis of left arm (previously paresis). PRIOR MEDICAL HISTORY: diabetes (not currently on medication), anemia. IMAGING: MRI revealed progression of known infarction in right MCA territory. SWALLOW SCREEN: Failed 2x (03/02/2020 at 1100 & 1405) due to inability to maintain alertness for more than 5 minutes. RN Rosy completed another nursing swallow screen this date and reported patient unable to take all 90 ml - reported that after a few sips started holding liquid and letting run out of mouth. Medications: Medications Reviewed Allergies: Refer to medical record - Subjective Current Nutritional Means: NPO Current Symptoms: Poor intake Pain: Patient reports, 0/5 - Objective Assessment: Upright, Left Lateral - Food Trials Food Trials Used: Thin liquids, Pureed The Patient: fed by ST - Assessment Labial Function: Within Functional Limits Mandibular Function: Impaired - poor opening to accept PO trials, patient seemed to try to open mouth, but head would move back and away from presentation. Patient took liquids more easily from straw than from cup due to this. Dentition: Edentulous Laryngeal Function: clear voicing, no volitional cough/clear - Pharyngeal Stage Initiation of Pharyngeal Stage: Delayed - up to 5 seconds with pudding trials Decreased Laryngeal Elevation: No Reduced Velo-Pharyngeal Closure: no Reduced Pressure Generation: No Reduced Tongue Base Retraction: No Pre-Swallowing Pooling in Valleculae: Significant Pre-Swallowing Pooling in Pyriforms: None Reduced Thyro-Hyiod Approximation: No Reduced Epiglottic Excursion: No Reduced Pharyngeal Peristalsis: No Multiple Swallows With: Cleared w/ Dry Swallow Post Swallow Residuals in Valleculae: Mild Post Swallow Residuals in Pyriforms: None - Impression/Summary Laryngeal Penetration: Yes - flash penetration of thin liquids intermittently Tracheal Aspiration: no Patient Presents With: Oral stage dysphagia - severe, Pharyngeal stage dysph. - mild Risk of Aspiration: Moderate Risk of Nutritional Compromise: Moderate Risk Due To: Aspiration risk due to delay in swallow initiation. Nutritional compromise risk due to poor oral prep phase and intake of PO trials. - Recommendations Solid Diet Recommendations: Pureed Liquid Diet Recommendations: Thin Strict Aspitarion Precautions: Yes Dysphagia Therapy with DIRECTOR OF PHYSICAL SECURITY: No - Pt not following directions well enough to participate in skilled dysphagia treatment at this time. Would benefit from this should mental status improve. Recommended Techniques: Fully Upright During Meal, Check Mouth for Pocketing, Med Crushed in Applesauce, Small Bites and Sips Other Recommendations: Discussed recommendation with MD for thin liquids and puree solids. Intake should be monitored as the patient seemed to require good deal of encouragment to take PO trials. Strict aspiration precautions should also be used due to delay in swallow initiation, as well as checking mouth for pocketing after PO presentations. MD in agreement with recommendations, speech therapist to place diet order per physician direction. - Time Total Time: 30 Total Timed Minutes: 30
[2020-03-04] MEDS: METOPROLOL SUCCINATE 25 MG TAB.SR.24H PO SCH (11:22)
[2020-03-04] MEDS: ASPIRIN 300 MG SUPP, RECTAL PR SCH (11:26)
[2020-03-04] MEDS: FILGRASTIM-AAFI 300 MCG/0.5 ML SYRINGE SUBCUT SCH (11:27)
--- NOTE | 2020-03-04 12:39 | PDOC PROGRESS REPORT ---
Subjective Progress Note for:: 03/04/20 Subjective:: Patient is able to speak clearer today but speech is still somewhat slurred. Able to follow some commands but not able to follow some others. Still very drowsy but more awake than yesterday. Reason For Visit: ACUTE STROKE,PANCYTOPENIA Physical Exam Vital Signs: Temp Pulse Resp BP Pulse Ox 98.0 F 102 H 16 153/90 H 100 03/04/20 07:53 03/04/20 08:00 03/04/20 08:00 03/04/20 08:00 03/04/20 08:00 Pulse Oximeter Continuous Start: 03/02/20 14:07 Freq: RTQ4 Status: Hold Protocol: Document 03/02/20 16:00 IFEOMA (Rec: 03/02/20 16:14 J [id number]) Pulse Oximetry Assessment Oxygen Saturation (92-100) 94 Fraction of Inspired Oxygen (FIO2) 21 Equipment Usage Equipment Standby Continuous SpO2 Machine # 0 Additional RT Notes Other pt on nurse monitor Intake & Output 03/03/20 03/04/20 03/05/20 06:59 06:59 06:59 Intake Total 251 3061 Output Total 90 Balance 251 2971 Weight 100.4 kg 100.7 kg 100.7 kg General appearance: PRESENT: no acute distress, cooperative Neck exam: ABSENT: JVD Respiratory exam: PRESENT: clear to auscultation carlita, unlabored. ABSENT: tachypnea, wheezes Cardiovascular exam: PRESENT: RRR, +S1, +S2, systolic murmur. ABSENT: tachycardia GI/Abdominal exam: PRESENT: soft. ABSENT: rebound, rigid, tenderness Neurological exam: PRESENT: awake - Awakens to verbal stimulus. Still seems very drowsy, oriented to person, oriented to place, motor sensory deficit - 0/5 in LUE, 1/5 LLE, 2/5 RLE and 3/5 RUE, aphasic - Seems receptive to language but occasionally seems to respond unintelligibly. Overall responses have been more adequate than before., other - Able to follow some commands. Speech is slurred. Mild facial droop improved from before.. ABSENT: alert, oriented to time, oriented to situation Focused psych exam: ABSENT: internal stimuli, pressured speech Skin exam: ABSENT: jaundice Results Laboratory Results: 03/04/20 05:30 03/04/20 05:30 03/03/20 03/04/20 03/04/20 14:45 05:30 05:30 WBC RBC Hgb Hct MCV MCH MCHC RDW Plt Count Seg Neutrophils % Sodium 136.4 L Potassium 4.4 D 3.4 L D Chloride 106 Carbon Dioxide 26 Anion Gap 5 BUN 22 H Creatinine 1.29 H Est GFR ( Amer) 49 L Glucose 134 H Calcium 8.0 L Magnesium 2.0 Blood Type A POSITIVE Antibody Screen NEGATIVE 03/04/20 05:30 WBC 1.1 L* RBC 2.47 L Hgb 7.7 L Hct 22.3 L MCV 90 MCH 31.0 MCHC 34.3 RDW 14.0 Plt Count 5 L* Seg Neutrophils % Not Reportable Sodium Potassium Chloride Carbon Dioxide Anion Gap BUN Creatinine Est GFR ( Amer) Glucose Calcium Magnesium Blood Type Antibody Screen 03/02/20 10:55 Blood Blood Culture (PCR) - Final Staphylococcus Aureus 03/02/20 10:55 Blood Blood Culture - Final Staphylococcus Aureus 03/02/20 13:05 Blood Blood Culture (PCR) - Final Staphylococcus Aureus 03/02/20 03/02/20 10:55 10:55 Creatine Kinase 147 H CK-MB (CK-2) 2.41 Troponin I 0.069 Impressions: Head MRI 03/02/20 00:00 IMPRESSION: Multiple small infarcts in the right parietal lobe which are acute. This is extension of the known right parietal infarct. Very limited images with enhancement but no obvious enhancing lesions. Atrophy and microvascular ischemia. EVIDENCE OF ACUTE STROKE: Yes RIGHT MCA. Chest X-Ray 03/02/20 10:52 IMPRESSION: Persistent right basilar opacity with right effusion significantly improved. New venous access catheter. Head CT 03/02/20 10:54 IMPRESSION: Progression of known infarction in the right MCA territory. No evidence of hemorrhage or mass effect. EVIDENCE OF ACUTE STROKE: NO. Subacute/chronic. Modified Barium Swallow 03/04/20 07:00 IMPRESSION: LARYNGEAL PENETRATION WITH THIN LIQUIDS. NO ASPIRATION SEEN. PLEASE SEE SPEECH PATHOLOGIST REPORT FOR OTHER FINDINGS AND RECOMMENDATIONS. Assessment and Plan - Diagnosis (1) Acute ischemic stroke Is this a current diagnosis for this admission?: Yes Plan: Acute infarcts confirmed on MRI once again within the right MCA territory. 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 New symptoms seem to be aphasia, dysarthria, complete paralysis of the left arm [CVA in 2019 left here with LUE and LLE paresis]. 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 Speech therapist recommending pured diet with thin liquids but there is concern that patient would not meet her nutritional needs. PT and Occupational Therapy Continue to review telemetry for any evidence of occult atrial arrhythmia. Aspirin and Plavix. LDL of 53 therefore statin is not required. Awaiting echo and carotid ultrasound. GI prophylaxis and SCDs Discussed with patient's who wishes for continued full care but open to having further discussion with palliative care. Consulted. (2) Pancytopenia due to antineoplastic chemotherapy Is this a current diagnosis for this admission?: Yes Plan: Patient notably did receive erythropoietin and blood transfusion in Dr. Overton's office on 02/27/2020. In light of bacteremia, continue filgrastim until ANC is over 1000 [700 today]. Discussed with Oncology. Platelet transfusion today as platelet count is down to 5000. (3) Staphylococcus aureus bacteremia Is this a current diagnosis for this admission?: Yes Plan: High burden MSSA bacteremia resulted in <24 hours. Patient also has cardiac murmur [uncertain if chronic] will need Echo. TTE planned. Potential source is from CVC/Port-cath or skin breakdown/decubitus ulcers. Vancomycin discontinued. Cefazolin started. Follow-up repeat blood cultures. We will need to remove patient's port. ID consulted. (4) Proximal renal tubular dysfunction Is this a current diagnosis for this admission?: Yes Plan: Urinalysis showing glucosuria, proteinuria. Blood glucose level is adequate. 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 This is likely cause of patient's WALLACE. Creatinine improving with IV fluids. (5) Stage IV carcinoma of ovary Qualifiers: Laterality: unspecified laterality Qualified Code(s): C56.9 - Malignant neoplasm of unspecified ovary Is this a current diagnosis for this admission?: Yes Plan: Oncology consulted. Discussed with Dr. Lau. 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 Diagnosed September 2019. Receiving chemo with carboplatin and paclitaxel third cycle on 02/19/2020. (6) Malignant pleural effusion Is this a current diagnosis for this admission?: Yes Plan: Right lower lobe opacities noted. I suspect that this is likely secondary to patient's remnants of right pleural effusion from malignant spread that was noted on prior visit last year will monitor. Pulse ox is adequate on room air. (7) Morbid obesity with BMI of 40.0-44.9, adult Is this a current diagnosis for this admission?: Yes Plan: Hemoglobin A1c and lipid panel within normal limits. - Plan Summary Summary: Plan discussed with patient's . - Time Time Spent with patient: 15-24 minutes
[2020-03-04 12:45] LABS: PATH REVIEW PATHOLOGIST REVIEWED
--- NOTE | 2020-03-04 13:03 | PDOC PROGRESS REPORT ---
Subjective Progress Note for:: 03/04/20 Subjective:: Per nursing, pt seems to be doing better, less confused, working this am w/ PT. Passed swallow eval w/ dietary consistency recommendations noted. Reason For Visit: ACUTE STROKE,PANCYTOPENIA Physical Exam Vital Signs: Temp Pulse Resp BP Pulse Ox 98.0 F 102 H 16 153/90 H 100 03/04/20 07:53 03/04/20 08:00 03/04/20 08:00 03/04/20 08:00 03/04/20 08:00 Pulse Oximeter Continuous Start: 03/02/20 14:07 Freq: RTQ4 Status: Hold Protocol: Document 03/02/20 16:00 IFEOMA (Rec: 03/02/20 16:14 IFEOMA [email or web address]) Pulse Oximetry Assessment Oxygen Saturation (92-100) 94 Fraction of Inspired Oxygen (FIO2) 21 Equipment Usage Equipment Standby Continuous SpO2 Machine # 0 Additional RT Notes Other pt on nurse monitor Intake & Output 03/03/20 03/04/20 03/05/20 06:59 06:59 06:59 Intake Total 251 3061 Output Total 90 Balance 251 2971 Weight 100.4 kg 100.7 kg 100.7 kg Results Laboratory Results: 03/04/20 05:30 03/04/20 05:30 03/03/20 03/04/20 03/04/20 14:45 05:30 05:30 WBC RBC Hgb Hct MCV MCH MCHC RDW Plt Count Seg Neutrophils % Sodium 136.4 L Potassium 4.4 D 3.4 L D Chloride 106 Carbon Dioxide 26 Anion Gap 5 BUN 22 H Creatinine 1.29 H Est GFR ( Amer) 49 L Glucose 134 H Calcium 8.0 L Magnesium 2.0 Blood Type A POSITIVE Antibody Screen NEGATIVE 03/04/20 05:30 WBC 1.1 L* RBC 2.47 L Hgb 7.7 L Hct 22.3 L MCV 90 MCH 31.0 MCHC 34.3 RDW 14.0 Plt Count 5 L* Seg Neutrophils % Not Reportable Sodium Potassium Chloride Carbon Dioxide Anion Gap BUN Creatinine Est GFR ( Amer) Glucose Calcium Magnesium Blood Type Antibody Screen 03/02/20 10:55 Blood Blood Culture (PCR) - Final Staphylococcus Aureus 03/02/20 10:55 Blood Blood Culture - Final Staphylococcus Aureus 03/02/20 13:05 Blood Blood Culture (PCR) - Final Staphylococcus Aureus 03/02/20 03/02/20 10:55 10:55 Creatine Kinase 147 H CK-MB (CK-2) 2.41 Troponin I 0.069 Impressions: Head MRI 03/02/20 00:00 IMPRESSION: Multiple small infarcts in the right parietal lobe which are acute. This is extension of the known right parietal infarct. Very limited images with enhancement but no obvious enhancing lesions. Atrophy and microvascular ischemia. EVIDENCE OF ACUTE STROKE: Yes RIGHT MCA. Chest X-Ray 03/02/20 10:52 IMPRESSION: Persistent right basilar opacity with right effusion significantly improved. New venous access catheter. Head CT 03/02/20 10:54 IMPRESSION: Progression of known infarction in the right MCA territory. No evidence of hemorrhage or mass effect. EVIDENCE OF ACUTE STROKE: NO. Subacute/chronic. Modified Barium Swallow 03/04/20 07:00 IMPRESSION: LARYNGEAL PENETRATION WITH THIN LIQUIDS. NO ASPIRATION SEEN. PLEASE SEE SPEECH PATHOLOGIST REPORT FOR OTHER FINDINGS AND RECOMMENDATIONS. Assessment & Plan - Diagnosis (1) Pancytopenia due to antineoplastic chemotherapy Is this a current diagnosis for this admission?: Yes Plan: Plt transfusion pending. Cont to give plt for ct <10. But she should respond w ell to plt transfusion. Transfuse blood if hb <7. Hopefully should be recovering counts in next 7-10 days. (2) Neutropenia Qualifiers: Neutropenia type: secondary to cancer chemotherapy Qualified Code(s): D70.1 - Agranulocytosis secondary to cancer chemotherapy; T45.1X5A - Adverse effect of antineoplastic and immunosuppressive drugs, initial encounter Is this a current diagnosis for this admission?: Yes Plan: cont neupogen until ANC >1000 (3) Stage IV carcinoma of ovary Qualifiers: Laterality: unspecified laterality Qualified Code(s): C56.9 - Malignant neoplasm of unspecified ovary Is this a current diagnosis for this admission?: Yes Plan: Will need to further dose reduce next cycle. Will follow closely. - Time Time Spent with patient: 25-34 minutes
[2020-03-04] MEDS ORDERED: CEFAZOLIN 1 GM/D5W RTU 1 GM/50 ML RTUPB IV SCH (15:00)
[2020-03-04] MEDS ORDERED: METOPROLOL TARTRATE PF/INJ 5 MG/5 ML SDV IV ONE (16:00)
--- NOTE | 2020-03-04 18:38 | ADVANCED CARE ---
- Diagnosis (1) Acute ischemic stroke Diagnosis Current: Yes (3) Staphylococcus aureus bacteremia Diagnosis Current: Yes Attendance: Patient's . Patient's son Kun. Myself Resuscitation Status: Full Code Discussion: Discussed patient's conditions with patient's and then later on the patient's son. I discussed patient was able to swallow when seated upright and patient will be started on a pured diet today. However I expressed my concern that patient's metabolic encephalopathy secondary to a stroke may not allow patient to to eat sufficiently to truly meet her nutritional requirements and that patient may require consideration for hospice/palliative care or possibly alternate means of feeding. Discussed palliative care and hospice with patient's and will also follow-up with the palliative care consult formally. Patient's still opting for full treatment and states that if patient does not eat sufficiently today, we can go ahead with NG tube placement for tube feeds. Also discussed PEG tube. Still opting for full code. Time Spent: 25mins
[2020-03-04] MEDS ORDERED: CEFAZOLIN 2 GM/D5W RTU 2 GM/50 ML RTUPB IV SCH (22:00)
[2020-03-04] MEDS: FAMOTIDINE INJ/PF 20 MG/2 ML SDV IV SCH (22:14)
[2020-03-04] MEDS: CEFAZOLIN SODIUM 2 GM in DEXTROSE 5%-WATER 100 ML IV SCH (22:14)
[2020-03-05] MEDS: CEFAZOLIN SODIUM 2 GM in DEXTROSE 5%-WATER 100 ML IV SCH ×3 (06:10→21:20)
[2020-03-05 06:59] LABS: HEMATOCRIT 20.7 % (36.0-47.0); MEAN CORPUSCULAR HEMOGLOBIN 30.2 pg (27.0-33.4); MEAN CORPUSCULAR HGB CONC 33.3 g/dL (32.0-36.0); MEAN CORPUSCULAR VOLUME 91 fl (80-97); RED BLOOD COUNT 2.28 10^6/uL (3.72-5.28); RED CELL DISTRIBUTION WIDTH 14.5 % (11.5-14.0); WHITE BLOOD COUNT 1.8 10^3/uL (4.0-10.5)
[2020-03-05 07:16] LABS: ANION GAP 5 (5-19); BLOOD UREA NITROGEN 20 mg/dL (7-20); CALCIUM 8.2 mg/dL (8.4-10.2); CARBON DIOXIDE 27 mmol/L (22-30); CHLORIDE 106 mmol/L (98-107); GLUCOSE 118 mg/dL (75-110); POTASSIUM 3.2 mmol/L (3.6-5.0)
[2020-03-05 07:27] LABS: HEMOGLOBIN 6.9 g/dL (12.0-15.5)
[2020-03-05 07:59] LABS: ABSOLUTE LYMPHOCYTES# (MANUAL) 0.2 10^3/uL (0.5-4.7); ABSOLUTE MONOCYTES # (MANUAL) 0.2 10^3/uL (0.1-1.4); BAND NEUTROPHILS % (MANUAL) 10 % (3-5); BASOPHILS % (MANUAL) 0 % (0-2); EOSINOPHILS % (MANUAL) 0 % (0-6); LYMPHOCYTES % (MANUAL) 10 % (13-45); MONOCYTES % (MANUAL) 12 % (3-13); SEGMENTED NEUTROPHILS % (MAN) 68 % (42-78); TOTAL CELLS COUNTED 50
[2020-03-05 08:00] LABS: ANISOCYTOSIS SLIGHT; OVALOCYTES SLIGHT; TEAR DROP CELLS SLIGHT; TOXIC GRANULATION 1+; TOXIC VACUOLATION PRESENT
[2020-03-05 08:01] LABS: PLATELET COMMENT DECREASED; POIKILOCYTOSIS SLIGHT
[2020-03-05 08:05] LABS: PLATELET COUNT 12 10^3/uL (150-450)
[2020-03-05] MEDS: METOPROLOL SUCCINATE 25 MG TAB.SR.24H PO SCH (10:08)
[2020-03-05] MEDS: CLOPIDOGREL BISULFATE 75 MG TABLET PO SCH (10:08)
[2020-03-05] MEDS: ASPIRIN 81 MG TABLET, CHEWABLE PO SCH (10:08)
[2020-03-05] MEDS: FILGRASTIM-AAFI 300 MCG/0.5 ML SYRINGE SUBCUT SCH (10:10)
--- NOTE | 2020-03-05 12:49 | RADIOLOGY REPORT (SQ) ---
EXAM DESCRIPTION: CAROTID DOPPLER IMAGES COMPLETED DATE/TIME: 03/05/2020 12:37 pm REASON FOR STUDY: CVA COMPARISON: None. TECHNIQUE: Grayscale ultrasound, Doppler velocity and spectra, and color Doppler images acquired of the extra-cranial carotid and vertebral arteries. Images stored on PACS. LIMITATIONS: None. FINDINGS: RIGHT CAROTID CCA Velocities: Within normal limits. ICA Velocities Peak systolic 0.73 m/s. End diastolic 0.28 m/s. Proximal ICA/CCA peak systolic ratio 0.88. Spectra normal. No significant plaque. LEFT CAROTID CCA Velocities: Within normal limits. ICA Velocities Peak systolic 0.80 m/s. End diastolic 0.32 m/s. Proximal ICA/CCA peak systolic ratio 0.82. Spectra normal. No significant plaque. VERTEBRAL ARTERIES: Antegrade flow. Normal waveforms. SUBCLAVIAN ARTERIES: No finding. OTHER: No other significant finding. IMPRESSION: NO HEMODYNAMICALLY SIGNIFICANT STENOSIS. COMMENT: Quality ID #[id number]: Velocity criteria are extrapolated from the diameter data as defined by t he Society of Radiologists in Ultrasound Consensus Conference. Radiology 2003: 229; 340-346. TECHNICAL DOCUMENTATION: JOB ID: [id number] 2010 [employer]- All Rights Reserved Reading location - IP/workstation name: [email or web address]
--- NOTE | 2020-03-05 12:54 | CDI QUERY ---
<STEPHANIE MAYER - Last Filed: 03/05/20 12:53> CDI Query CDI Review: Dear Provider: To better reflect your patients severity of illness, morbidity, and resource utilization Please specify and document in the Progress Notes and Discharge Summary if you are monitoring / treating / evaluating any of the following conditions: Query Clinical indicators Please clarify and specify if this patient currently has DECUBITUS ULCERS and if they were PRESENT ON ADMISSION. Please include the site and stage of each decubitus ulcer. Please include this documentation in your Progress Notes, the Discharge Summary and indicate Present on Admission. Thank you for your excellent documentation on this patient. I appreciate your continued strive for excellence. Noted in Progress Notes: Staphylococcus aureus bacteremia High burden bacteremia resulted in less than 24 hours. Patient also awaits cardiac murmur [uncertain if chronic] will need echocardiogram. Will start TTE. Potential source is from skin breakdown/decubitus ulcers. The terms probable, suspected, likely, possible or still to be ruled out may be used if you are unable to determine the exact nature of a condition. Thank you for your consideration, Clinical Documentation Physician Advisors CRISTHIAN Dc RN, BSN RN Office [phone] Office [phone] <ELMER LAST - Last Filed: 03/06/20 11:01> CDI Query Agree with Query: No
--- NOTE | 2020-03-05 16:16 | PDOC PROGRESS REPORT ---
Subjective Progress Note for:: 03/05/20 Subjective:: Patient is nonverbal. She is hemodynamically stable. She has persistent bacteremia. Reason For Visit: ACUTE STROKE,PANCYTOPENIA Physical Exam Vital Signs: Temp Pulse Resp BP Pulse Ox 97.9 F 83 16 119/70 100 03/05/20 12:03 03/05/20 12:03 03/05/20 12:03 03/05/20 12:03 03/05/20 12:03 Pulse Oximeter Continuous Start: 03/02/20 14:07 Freq: RTQ4 Status: Hold Protocol: Document 03/02/20 16:00 IFEOMA (Rec: 03/02/20 16:14 J [email or web address]) Pulse Oximetry Assessment Oxygen Saturation (92-100) 94 Fraction of Inspired Oxygen (FIO2) 21 Equipment Usage Equipment Standby Continuous SpO2 Machine # 0 Additional RT Notes Other pt on nurse monitor Intake & Output 03/04/20 03/05/20 03/06/20 06:59 06:59 06:59 Intake Total 3061 1732 60 Output Total 90 200 160 Balance 2971 1532 -100 Weight 222 lb 0.088 oz 222 lb 3.615 oz General appearance: PRESENT: obese Head exam: PRESENT: atraumatic, normocephalic Eye exam: ABSENT: conjunctival injection Ear exam: ABSENT: bleeding, drainage Mouth exam: PRESENT: neck supple Neck exam: ABSENT: meningismus, tracheostomy Respiratory exam: PRESENT: rhonchi Cardiovascular exam: PRESENT: RRR Pulses: PRESENT: +1 pedal pulses bilateral GI/Abdominal exam: PRESENT: normal bowel sounds. ABSENT: tenderness Rectal exam: PRESENT: deferred Neurological exam: PRESENT: altered Results Laboratory Results: 03/05/20 06:35 03/05/20 06:35 03/04/20 03/04/20 03/05/20 05:30 05:30 06:35 WBC 1.1 L* RBC 2.47 L Hgb 7.7 L Hct 22.3 L MCV 90 MCH 31.0 MCHC 34.3 RDW 14.0 Plt Count 5 L* Seg Neutrophils % Sodium 137.9 Potassium 3.2 L Chloride 106 Carbon Dioxide 27 Anion Gap 5 BUN 20 Creatinine 0.91 Est GFR ( Amer) > 60 Glucose 118 H Calcium 8.2 L Blood Type A POSITIVE Antibody Screen NEGATIVE 03/05/20 06:35 WBC 1.8 L RBC 2.28 L Hgb 6.9 L Hct 20.7 L MCV 91 MCH 30.2 MCHC 33.3 RDW 14.5 H Plt Count 12 L* Seg Neutrophils % Not Reportable Sodium Potassium Chloride Carbon Dioxide Anion Gap BUN Creatinine Est GFR ( Amer) Glucose Calcium Blood Type Antibody Screen 03/04/20 05:30 Blood Blood Culture (PCR) - Final Staphylococcus Aureus 03/04/20 06:36 Blood Blood Culture (PCR) - Final Staphylococcus Aureus 03/02/20 13:05 Blood Blood Culture (PCR) - Final Staphylococcus Aureus 03/02/20 13:05 Blood Blood Culture - Final Staphylococcus Aureus 03/02/20 10:50 Catheterized Urine Urine Culture - Final Proteus Mirabilis Urogenital Surekha 03/02/20 03/02/20 10:55 10:55 Creatine Kinase 147 H CK-MB (CK-2) 2.41 Troponin I 0.069 Impressions: Head MRI 03/02/20 00:00 IMPRESSION: Multiple small infarcts in the right parietal lobe which are acute. This is extension of the known right parietal infarct. Very limited images with enhancement but no obvious enhancing lesions. Atrophy and microvascular ischemia. EVIDENCE OF ACUTE STROKE: Yes RIGHT MCA. Chest X-Ray 03/02/20 10:52 IMPRESSION: Persistent right basilar opacity with right effusion significantly improved. New venous access catheter. Head CT 03/02/20 10:54 IMPRESSION: Progression of known infarction in the right MCA territory. No evidence of hemorrhage or mass effect. EVIDENCE OF ACUTE STROKE: NO. Subacute/chronic. Modified Barium Swallow 03/04/20 07:00 IMPRESSION: LARYNGEAL PENETRATION WITH THIN LIQUIDS. NO ASPIRATION SEEN. PLEASE SEE SPEECH PATHOLOGIST REPORT FOR OTHER FINDINGS AND RECOMMENDATIONS. Carotid Doppler Study 03/05/20 00:00 IMPRESSION: NO HEMODYNAMICALLY SIGNIFICANT STENOSIS. Assessment and Plan - Diagnosis (1) Acute ischemic stroke Is this a current diagnosis for this admission?: Yes Plan: Acute infarcts confirmed on MRI once again within the right MCA territory. 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 New symptoms seem to be aphasia, dysarthria, complete paralysis of the left arm [CVA in 2019 left here with LUE and LLE paresis]. 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 Speech therapist recommending pured diet with thin liquids but there is concern that patient would not meet her nutritional needs. PT and Occupational Therapy Continue to review telemetry for any evidence of occult atrial arrhythmia. Aspirin and Plavix. LDL of 53 therefore statin is not required. Awaiting echo. Unremarkable carotid ultrasound. GI prophylaxis and SCDs Dr. Chacon discussed with patient's who wishes for continued full care but open to having further discussion with palliative care. Consulted. 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 Overton's office on 02/27/2020. Has received filgrastim. Dr. Chacon discussed with Oncology. Has received platelet transfusion yesterday (3) Staphylococcus aureus bacteremia Is this a current diagnosis for this admission?: Yes Plan: High burden MSSA bacteremia resulted in <24 hours. Patient also has cardiac murmur [uncertain if chronic] will need Echo (pending). Potential source is from CVC/Port-cath or skin breakdown/decubitus ulcers. Vancomycin discontinued. Cefazolin started. Repeat blood cultures still positive. We will need to remove patient's port. ID and surgery consulted. (4) Stage IV carcinoma of ovary Qualifiers: Laterality: unspecified laterality Qualified Code(s): C56.9 - Malignant neoplasm of unspecified ovary Is this a current diagnosis for this admission?: Yes Plan: Oncology consulted. Discussed with Dr. Lau. 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 Diagnosed September 2019. Receiving chemo with carboplatin and paclitaxel third cycle on 02/19/2020. (5) Malignant pleural effusion Is this a current diagnosis for this admission?: Yes Plan: Right lower lobe opacities noted. Suspected that this is likely secondary to patient's remnants of right pleural effusion from malignant spread that was no keeley on prior visit last year will monitor. Pulse ox is adequate on room air. (6) Morbid obesity with BMI of 40.0-44.9, adult Is this a current diagnosis for this admission?: Yes Plan: Hemoglobin A1c and lipid panel within normal limits.
--- NOTE | 2020-03-05 16:52 | RADIOLOGY REPORT (SQ) ---
EXAM DESCRIPTION: CHEST SINGLE VIEW IMAGES COMPLETED DATE/TIME: 03/05/2020 4:40 pm REASON FOR STUDY: effusion COMPARISON: 03/02/2020 EXAM PARAMETERS: NUMBER OF VIEWS: One view. TECHNIQUE: Single frontal radiographic view of the chest acquired. RADIATION DOSE: NA LIMITATIONS: None. FINDINGS: LUNGS AND PLEURA: Right pleural effusion is slightly increased in size. Probable underlyi ng atelectasis or pneumonia. No pneumothorax. MEDIASTINUM AND HILAR STRUCTURES: No masses. Contour normal. HEART AND VASCULAR STRUCTURES: Heart normal in size. Normal vasculature. BONES: No acute findings. HARDWARE: [id number] remains in place. OTHER: No other significant finding. IMPRESSION: Increasing right-sided pleural effusion. TECHNICAL DOCUMENTATION: JOB ID: [id number] 2010 [employer]- All Rights Reserved Reading location - IP/workstation name: [email or web address]
[2020-03-05 18:00] LABS: BLOOD UREA NITROGEN 21 mg/dL (7-20); CALCIUM 8.4 mg/dL (8.4-10.2); CARBON DIOXIDE 25 mmol/L (22-30); CHLORIDE 109 mmol/L (98-107); GLUCOSE 99 mg/dL (75-110); POTASSIUM 3.7 mmol/L (3.6-5.0)
[2020-03-05 18:11] LABS: ANION GAP 4 (5-19)
[2020-03-05] MEDS: DEXTROSE 5%-NORMAL SALINE 1,000 ML IV PRN (19:00)
[2020-03-05] MEDS: FAMOTIDINE INJ/PF 20 MG/2 ML SDV IV SCH (21:20)
[2020-03-06] MEDS ORDERED: FUROSEMIDE INJ/PF 20 MG/2 ML SDV IV PRN (05:00)
[2020-03-06] MEDS: CEFAZOLIN SODIUM 2 GM in DEXTROSE 5%-WATER 100 ML IV SCH ×3 (05:30→21:45)
[2020-03-06 06:58] LABS: HEMATOCRIT 20.6 % (36.0-47.0); MEAN CORPUSCULAR HEMOGLOBIN 30.8 pg (27.0-33.4); MEAN CORPUSCULAR HGB CONC 33.5 g/dL (32.0-36.0); MEAN CORPUSCULAR VOLUME 92 fl (80-97); RED BLOOD COUNT 2.24 10^6/uL (3.72-5.28); RED CELL DISTRIBUTION WIDTH 14.5 % (11.5-14.0)
[2020-03-06 07:23] LABS: WHITE BLOOD COUNT 2.9 10^3/uL (4.0-10.5)
[2020-03-06 07:24] LABS: HEMOGLOBIN 6.9 g/dL (12.0-15.5)
[2020-03-06 07:25] LABS: PLATELET COUNT 6 10^3/uL (150-450)
--- NOTE | 2020-03-06 08:16 | PDOC PROGRESS REPORT ---
Subjective Progress Note for:: 03/06/20 Subjective:: Reviewed chart, discussed pt w/ nursing this am. Pt still confused to some extent, lethargic. Not really back to previous mental status baseline. Pt has persistent bacteremia, needs port removal. hb <7 and plt <10 this am but ANC improved to >1000 this am so d/c'd neupogen today. Reason For Visit: ACUTE STROKE,PANCYTOPENIA Physical Exam Vital Signs: Temp Pulse Resp BP Pulse Ox 97.4 F 69 16 124/69 98 03/06/20 03:46 03/06/20 07:00 03/06/20 03:46 03/06/20 03:46 03/06/20 03:46 Pulse Oximeter Continuous Start: 03/02/20 14:07 Freq: RTQ4 Status: Hold Protocol: Document 03/02/20 16:00 J (Rec: 03/02/20 16:14 J [email or web address]) Pulse Oximetry Assessment Oxygen Saturation (92-100) 94 Fraction of Inspired Oxygen (FIO2) 21 Equipment Usage Equipment Standby Continuous SpO2 Machine # 0 Additional RT Notes Other pt on nurse monitor Intake & Output 03/05/20 03/06/20 03/07/20 06:59 06:59 06:59 Intake Total 1732 1360 Output Total 200 440 Balance 1532 920 Weight 100.8 kg 100.4 kg Results Laboratory Results: 03/06/20 06:05 03/05/20 17:04 03/05/20 03/06/20 17:04 06:05 WBC 2.9 L D RBC 2.24 L Hgb 6.9 L Hct 20.6 L MCV 92 MCH 30.8 MCHC 33.5 RDW 14.5 H Plt Count 6 L* Sodium 138.0 Potassium 3.7 Chloride 109 H Carbon Dioxide 25 Anion Gap 4 L BUN 21 H Creatinine 0.85 Est GFR ( Amer) > 60 Glucose 99 Calcium 8.4 03/04/20 05:30 Blood Blood Culture (PCR) - Final Staphylococcus Aureus 03/04/20 06:36 Blood Blood Culture (PCR) - Final Staphylococcus Aureus 03/02/20 13:05 Blood Blood Culture (PCR) - Final Staphylococcus Aureus 03/02/20 13:05 Blood Blood Culture - Final Staphylococcus Aureus 03/02/20 03/02/20 10:55 10:55 Creatine Kinase 147 H CK-MB (CK-2) 2.41 Troponin I 0.069 Impressions: Head MRI 03/02/20 00:00 IMPRESSION: Multiple small infarcts in the right parietal lobe which are acute. This is extension of the known right parietal infarct. Very limited images with enhancement but no obvious enhancing lesions. Atrophy and microvascular ischemia. EVIDENCE OF ACUTE STROKE: Yes RIGHT MCA. Head CT 03/02/20 10:54 IMPRESSION: Progression of known infarction in the right MCA territory. No evidence of hemorrhage or mass effect. EVIDENCE OF ACUTE STROKE: NO. Subacute/chronic. Modified Barium Swallow 03/04/20 07:00 IMPRESSION: LARYNGEAL PENETRATION WITH THIN LIQUIDS. NO ASPIRATION SEEN. PLEASE SEE SPEECH PATHOLOGIST REPORT FOR OTHER FINDINGS AND RECOMMENDATIONS. Carotid Doppler Study 03/05/20 00:00 IMPRESSION: NO HEMODYNAMICALLY SIGNIFICANT STENOSIS. Chest X-Ray 03/05/20 00:00 IMPRESSION: Increasing right-sided pleural effusion. Assessment & Plan - Diagnosis (1) Pancytopenia due to antineoplastic chemotherapy Is this a current diagnosis for this admission?: Yes Plan: multifactorial 2nd to both chemo but also myelosuppression from sepsis, give blood for hb<7, plt <10, DOES NOT NEED IRRADIATED products. Giving transfusion of both today (2) Neutropenia Qualifiers: Neutropenia type: secondary to cancer chemotherapy Qualified Code(s): D70.1 - Agranulocytosis secondary to cancer chemotherapy; T45.1X5A - Adverse effect of antineoplastic and immunosuppressive drugs, initial encounter Is this a current diagnosis for this admission?: Yes Plan: resolving, d/c neupogen today (3) Stage IV carcinoma of ovary Qualifiers: Laterality: unspecified laterality Qualified Code(s): C56.9 - Malignant neoplasm of unspecified ovary Is this a current diagnosis for this admission?: Yes Plan: Dont think pt can get to more chemo anytime soon. Once port is removed, we have ensured clearance of bacteremia, and plt ct/hb stabilizes, pt will benefit from rehab stay to get stronger again. Only after d/c from rehab would we consider starting chemo again. - Time Time Spent with patient: 15-24 minutes
--- NOTE | 2020-03-06 08:34 | RADIOLOGY REPORT (SQ) ---
EXAM DESCRIPTION: CHEST SINGLE VIEW IMAGES COMPLETED DATE/TIME: 03/06/2020 8:21 am REASON FOR STUDY: effusion COMPARISON: AP view of the chest from 03/05/2020. EXAM PARAMETERS: NUMBER OF VIEWS: One view. TECHNIQUE: An AP view of the chest was obtained. RADIATION DOSE: NA LIMITATIONS: None. FINDINGS: LUNGS AND PLEURA: Unchanged dense opacity in the mid to inferior aspect of the right hemit horax that obscures the contour of the hemidiaphragm on blunts the costophrenic sulcus. The left lat eral costophrenic sulcus is also blunted. There is no pneumothorax. MEDIASTINUM AND HILAR STRUCTURES: Stable mediastinal and hilar contours. HEART AND VASCULAR STRUCTURES: Stable enlarged cardiac silhouette. BONES: No acute findings. HARDWARE: The tip of the right IJ port projects within the SVC. OTHER: No other finding. IMPRESSION: Unchanged radiographic appearance of the chest. TECHNICAL DOCUMENTATION: JOB ID: [id number] 2010 [employer]- All Rights Reserved Reading location - IP/workstation name: [email or web address]
--- NOTE | 2020-03-06 09:00 | XCELERA REPORT ---
[address] [address] Transthoracic Echocardiogram Report Name: ASIM MUÑIZ Age: 74 yrs Gender: Female : 1945 Patient Status: Inpatient Patient Location: [address] [place] [address] Study Date: 03/04/2020 03:05 PM Height: 61 in Weight: 236 lb BSA: 2.0 m2 Reason For Study: CVA workup Ordering Physician: YOLI MORIN Performed By: Lily Brody Interpretation Summary LEFT VENTRICLE: LV Systolic function: LVEF is felt to be within normal limits. Best estimate is approximately LVEF is 60 to 65%. LV Diastolic Function: Grade II diastolic dysfunction noted. Wall motion : No definite regional wall motion abnormalities are noted. Left ventricular chamber size : is within normal limit. Left ventricular wall thickness : is increased indicative of Mild LVH. RIGHT VENTRICLE: RV systolic function : is felt to be within normal limit. Right Ventricle Size : is within normal limits. LEFT ATRIUM size : is mildly dilated. RIGHT ATRIUM size : is within normal limit. INTER ATRIAL SEPTUM : No definite atrial septal defect noted however a small PFO could be missed. AORTIC ROOT : seems to be within normal limits. Ascending aorta is not well visualized. INFERIOR VENA CAVA: was not well visualized. VALVES: MITRAL VALVE : mild annnular and leaflets tells effect noted. Mobility seems to be within normal limits. Mitral Regurgitation : mild mitral regurgitation is noted. Mitral Stenosis: No mitral stenosis noted. Mitral valve prolapse : none noted. AORTIC VALVE: mild to moderate calcified leaflet and with thickening but preserved excursion. Aortic stenosis : No aortic stenosis noted. Aortic regurgitation : mild aortic incompetence noted. TRICUSPID VALVE : mobility and structures within normal limit. Tricuspid stenosis : no tricuspid stenosis noted. Tricuspid regurgitation : Trace tricuspid regurgitation noted. Estimated RVSP : cannot be accurately commented upon but possibly at upper limit of normal. PULMONARY VALVE : was not well visualized but no significant abnormalities suspected. Pulmonary stenosis : no pulmonary stenosis noted. Pulmonary regurgitation : no significant pulmonary regurgitation noted. MASSES AND THROMBUS : No definite intracardiac thrombus or masses are noted. PERICARDIUM: No pericardial effusion was noted. IMPRESSION : 1. Normal LVEF. 2. Mild LVH noted 3. Grade II [mild] Diastolic Dysfunction noted. 4. Mild aortic and mild mitral regurgitation noted. 5. LA is mildly dilated. MMode/2D Measurements & Calculations RVDd: 2.7 cm LVIDd: 4.8 cm FS: 46.1 % Ao root diam: 2.4 cm IVSd: 0.89 cm LVIDs: 2.6 cm EDV(Teich): 106.6 ml LVPWd: 0.92 cm ESV(Teich): 24.1 ml Ao root area: 4.3 cm2 LA dimension: 3.6 cm EF(Teich): 77.4 % Doppler Measurements & Calculations MV E max sly: MV P1/2t max sly: Ao V2 max: AI max sly: 87.9 cm/sec 88.8 cm/sec 219.4 cm/sec 452.0 cm/sec MV A max sly: MV P1/2t: 58.7 msec Ao max PG: AI max P.7 mmHg 123.9 cm/sec MVA(P1/2t): 3.7 cm2 19.2 mmHg AI dec slope: MV E/A: 0.71 MV dec slope: 363.2 cm/sec2 AI P1/2t: 364.6 msec 443.1 cm/sec2 MV dec time: 0.20 sec LV V1 max PG: PA V2 max: TR max sly: AV P1/2t-pr_phl: 5.5 mmHg 84.9 cm/sec 251.1 cm/sec 364.6 msec LV V1 max: PA max P.9 mmHg TR max P.5 cm/sec 25.2 mmHg MV P1/2t-pr_phl: 58.7 msec : YOLI MORIN Shyamal
--- NOTE | 2020-03-06 09:15 | Progress Note ---
Provider Note Provider Note: [facility] ID Telephone Advice Consultation Chart reviewed. Patient is a 74-year-old woman with multiple comorbid condit ions including ovarian cancer with metastasis. She has been receiving chemotherapy through a port. On admission he was found pancytopenic. Her blood cultures on admission were positive for MSSA. Her brain MRI was consistent with new infarcts in the territory of the MCA where she previously had strokes. New blood cultures are positive and TTE is in process. The port has not been able to be removed yet. ID consulted for recommendations. PMH Ovarian cancer with metastasis PSH: port Allergies: lisinopril [Lisinopril] Allergy (Verified 05/09/19 07:15) morphine Allergy (Verified 05/09/19 07:15) Penicillins Allergy (Verified 05/09/19 07:15) atorvastatin Adverse Reaction (Verified 05/09/19 07:15) metformin Adverse Reaction (Verified 05/09/19 07:15) Medications: Metoprolol Succinate [Toprol Xl 50 mg Tab.sr] 25 mg PO DAILY 05/09/19 Pantoprazole Sodium [Protonix [address] Tablet] 40 mg PO [id number] 05/09/19 Tamsulosin HCl [Flomax 0.4 mg Cap.sr] 0.4 mg PO QPM 05/09/19 Folic Acid [Folvite 1 mg Tablet] 1 mg PO DAILY 03/02/20 Vital Signs: Temp Pulse Resp BP Pulse Ox 97.4 F 69 16 124/69 98 03/06/20 03:46 03/06/20 07:00 03/06/20 03:46 03/06/20 03:46 03/06/20 03:46 Pulse Oximeter Continuous Start: 03/02/20 14:07 Freq: RTQ4 Status: Hold Protocol: Document 03/02/20 16:00 [email or web address] (Rec: 03/02/20 16:14 [email or web address]) Pulse Oximetry Assessment Oxygen Saturation (92-100) 94 Fraction of Inspired Oxygen (FIO2) 21 Equipment Usage Equipment Standby Continuous SpO2 Machine # 0 Additional RT Notes Other pt on nurse monitor Intake & Output 03/05/20 03/06/20 03/07/20 06:59 06:59 06:59 Intake Total 1732 1360 Output Total 200 440 Balance 1532 920 Weight 100.8 kg 100.4 kg Weight/Height Weight 100.4 kg Height 5 ft 1 in Laboratories: 03/06/20 06:05 03/05/20 17:04 MCV 92 fl (80-97) 03/06/20 06:05 MCH 30.8 pg (27.0-33.4) 03/06/20 06:05 MCHC 33.5 g/dL (32.0-36.0) 03/06/20 06:05 RDW 14.5 % (11.5-14.0) H 03/06/20 06:05 Seg Neutrophils % Not Reportable 03/05/20 06:35 Chloride 109 mmol/L (98-107) H 03/05/20 17:04 Carbon Dioxide 25 mmol/L (22-30) 03/05/20 17:04 Anion Gap 4 (5-19) L 03/05/20 17:04 Est GFR ( Amer) > 60 (>60) 03/05/20 17:04 Glucose 99 mg/dL (75-110) 03/05/20 17:04 Lactic Acid 1.7 mmol/L (0.7-2.1) 03/02/20 10:55 Calcium 8.4 mg/dL (8.4-10.2) 03/05/20 17:04 Magnesium 2.0 mg/dL (1.6-2.3) 03/04/20 05:30 Total Bilirubin 0.8 mg/dL (0.2-1.3) 03/03/20 05:20 AST 21 U/L (14-36) 03/03/20 05:20 Alkaline Phosphatase 61 U/L (38-126) 03/03/20 05:20 Total Protein 5.3 g/dL (6.3-8.2) L 03/03/20 05:20 Albumin 2.1 g/dL (3.5-5.0) L 03/03/20 05:20 Triglycerides 134 mg/dL (<150) 03/03/20 05:20 Cholesterol 192.64 mg/dL (0-200) 03/03/20 05:20 LDL Cholesterol Direct 53 mg/dL (<100) 03/03/20 05:20 VLDL Cholesterol 26.8 mg/dL (10-31) 03/03/20 05:20 HDL Cholesterol 46 mg/dL (>40) 03/03/20 05:20 Urine Color MAGGI 03/02/20 10:50 Urine Appearance CLOUDY 03/02/20 10:50 Urine pH 5.0 (5.0-9.0) 03/02/20 10:50 Ur Specific Harmony 1.025 03/02/20 10:50 Urine Protein 100 mg/dL (NEGATIVE) H 03/02/20 10:50 Urine Glucose (UA) 50 mg/dL (NEGATIVE) H 03/02/20 10:50 Urine Ketones NEGATIVE mg/dL (NEGATIVE) 03/02/20 10:50 Urine Blood SMALL (NEGATIVE) H 03/02/20 10:50 Urine Nitrite NEGATIVE (NEGATIVE) 03/02/20 10:50 Ur Leukocyte Esterase NEGATIVE (NEGATIVE) 03/02/20 10:50 Urine WBC (Auto) 33 /HPF 03/02/20 10:50 Urine RBC (Auto) 17 /HPF 03/02/20 10:50 Blood Type A POSITIVE 03/04/20 05:30 Antibody Screen NEGATIVE 03/04/20 05:30 03/04/20 05:30 Blood Blood Culture (PCR) - Final Staphylococcus Aureus 03/04/20 06:36 Blood Blood Culture (PCR) - Final Staphylococcus Aureus 03/02/20 13:05 Blood Blood Culture (PCR) - Final Staphylococcus Aureus 03/02/20 13:05 Blood Blood Culture - Final Staphylococcus Aureus 03/02/20 03/02/20 10:55 10:55 Creatine Kinase 147 H CK-MB (CK-2) 2.41 Troponin I 0.069 Radiology: Head MRI 03/02/20 00:00 IMPRESSION: Multiple small infarcts in the right parietal lobe which are acute. This is extension of the known right parietal infarct. Very limited images with enhancement but no obvious enhancing lesions. Atrophy and microvascular ischemia. EVIDENCE OF ACUTE STROKE: Yes RIGHT MCA. Chest X-Ray 03/02/20 10:52 IMPRESSION: Persistent right basilar opacity with right effusion significantly improved. New venous access catheter. Head CT 03/02/20 10:54 IMPRESSION: Progression of known infarction in the right MCA territory. No evidence of hemorrhage or mass effect. EVIDENCE OF ACUTE STROKE: NO. Subacute/chronic. Modified Barium Swallow 03/04/20 07:00 IMPRESSION: LARYNGEAL PENETRATION WITH THIN LIQUIDS. NO ASPIRATION SEEN. PLEASE SEE SPEECH PATHOLOGIST REPORT FOR OTHER FINDINGS AND RECOMMENDATIONS. Carotid Doppler Study 03/05/20 00:00 IMPRESSION: NO HEMODYNAMICALLY SIGNIFICANT STENOSIS. Chest X-Ray 03/05/20 00:00 IMPRESSION: Increasing right-sided pleural effusion. Chest X-Ray 03/06/20 05:00 IMPRESSION: Unchanged radiographic appearance of the chest. Assessment and Recommendations: Patient evaluated due to MSSA bacteremia in the setting of ovarian cancer with metastasis requiring chemotherapy through a port. The source of the infection is the port. As soon as this can be removed, there will be source control and higher the possibility of clearing the bacteremia. Her TTE is in process if no evidence of endocarditis and no suspicion for metastatic infection, can treat with cefazolin 2g iv every 8 hr for 4 weeks from negative blood cultures for complicated MSSA bacteremia. If TTE is positive or there is any suspicion of metastaic infection, she will need 6 weeks of antibiotics. She did have a stroke but it was in the same territory of previous strokes likely due to arterial stenosis of the MCA, low suspicion for septic emboli per discussion with primary team. Can repeat blood cultures 24 hr after removal of the port. Please call if questions or updates. Laure Lin MD U ID [phone]
--- NOTE | 2020-03-06 10:20 | PDOC CONSULTATION ---
Consultation Consult Date: 03/06/20 Provider Consulted: SURGICAL SURGICALIST Consult reason:: mediport with persistent bacteremia History of Present Illness Admission Date/PCP: 03/02/20 13:04 JORDON DELGADILLO MD Patient complains of: bacteremia, altered mental status History of Present Illness: ASIM MUÑIZ is a 74 year old female seen in consultation at the request of the hospitalist service. This is a patient with metastatic ovarian cancer. She has a Mediport in place. She has persistent staph bacteremia, altered mental status, anemia, and thrombocytopenia. I have been consulted to remove the patient's Mediport, in hopes of clearing her bacteremia. The patient's mental status is altered. She does not respond to questions. She is confused. For me, she is nonverbal. Review of systems is unobtainable. Past Medical History Cardiac Medical History: Reports: Hyperlipidema, Hypertension Neurological Medical History: Reports: Ischemic CVA Endocrine Medical History: Reports: Diabetes Mellitus Type 2 - Not currently on medication per her primary doctor Malignancy Medical History: Reports: Ovarian Cancer - lung metastasis Psychiatric Medical History: Denies: Depression Hematology: Reports: Anemia Past Surgical History Past Surgical History: Reports: Other - L glaucoma procedure, VATS procedure Social History Lives with: Family Smoking Status: Former Smoker Frequency of Alcohol Use: None Hx Recreational Drug Use: No Drugs: None Hx Prescription Drug Abuse: No - Advance Directive Resuscitation Status: Full Code Family History Family History: DM, Hypertension Parental Family History Reviewed: Yes Children Family History Reviewed: Yes Sibling(s) Family History Reviewed.: Yes Medication/Allergy Home Medications: Metoprolol Succinate [Toprol Xl 50 mg Tab.sr] 25 mg PO DAILY 05/09/19 Pantoprazole Sodium [Protonix [address] Tablet] 40 mg PO [id number] 05/09/19 Tamsulosin HCl [Flomax 0.4 mg Cap.sr] 0.4 mg PO QPM 05/09/19 Folic Acid [Folvite 1 mg Tablet] 1 mg PO DAILY 03/02/20 Allergies/Adverse Reactions: lisinopril [Lisinopril] Allergy (Verified 05/09/19 07:15) morphine Allergy (Verified 05/09/19 07:15) Penicillins Allergy (Verified 05/09/19 07:15) atorvastatin Adverse Reaction (Verified 05/09/19 07:15) metformin Adverse Reaction (Verified 05/09/19 07:15) Review of Systems ROS unobtainable: Due to mental status Physical Exam Vital Signs: Temp Pulse Resp BP Pulse Ox 97.4 F 69 16 124/69 98 03/06/20 03:46 03/06/20 07:00 03/06/20 03:46 03/06/20 03:46 03/06/20 03:46 Pulse Oximeter Continuous Start: 03/02/20 14:07 Freq: RTQ4 Status: Hold Protocol: Document 03/02/20 16:00 JDR (Rec: 03/02/20 16:14 [email or web address]) Pulse Oximetry Assessment Oxygen Saturation (92-100) 94 Fraction of Inspired Oxygen (FIO2) 21 Equipment Usage Equipment Standby Continuous SpO2 Machine # 0 Additional RT Notes Other pt on nurse monitor Intake & Output 03/05/20 03/06/20 03/07/20 06:59 06:59 06:59 Intake Total 1732 1360 Output Total 200 440 Balance 1532 920 Weight 100.8 kg 100.4 kg General appearance: ABSENT: cooperative Head exam: PRESENT: atraumatic Eye exam: ABSENT: scleral icterus Mouth exam: PRESENT: neck supple Neck exam: ABSENT: thyromegaly, tracheal deviation Respiratory exam: ABSENT: tachypnea Cardiovascular exam: ABSENT: tachycardia Vascular exam: ABSENT: pallor GI/Abdominal exam: PRESENT: soft. ABSENT: distended, guarding, tenderness Rectal exam: PRESENT: deferred Extremities exam: PRESENT: other - hands in protective mittens Neurological exam: ABSENT: alert, awake, oriented to person Psychiatric exam: PRESENT: agitated Focused psych exam: PRESENT: restlessness Skin exam: ABSENT: cyanosis, erythema, jaundice Results Laboratory Results: 03/06/20 06:05 03/05/20 17:04 03/04/20 03/05/20 03/06/20 05:30 17:04 06:05 WBC 2.9 L D RBC 2.24 L Hgb 6.9 L Hct 20.6 L MCV 92 MCH 30.8 MCHC 33.5 RDW 14.5 H Plt Count 6 L* Sodium 138.0 Potassium 3.7 Chloride 109 H Carbon Dioxide 25 Anion Gap 4 L BUN 21 H Creatinine 0.85 Est GFR ( Amer) > 60 Glucose 99 Calcium 8.4 Blood Type A POSITIVE Antibody Screen NEGATIVE 03/04/20 06:36 Blood Blood Culture (PCR) - Final Staphylococcus Aureus 03/04/20 06:36 Blood Blood Culture - Final Staphylococcus Aureus 03/04/20 05:30 Blood Blood Culture (PCR) - Final Staphylococcus Aureus 03/04/20 05:30 Blood Blood Culture - Final Staphylococcus Aureus 03/02/20 13:05 Blood Blood Culture (PCR) - Final Staphylococcus Aureus 03/02/20 13:05 Blood Blood Culture - Final Staphylococcus Aureus 03/02/20 03/02/20 10:55 10:55 Creatine Kinase 147 H CK-MB (CK-2) 2.41 Troponin I 0.069 Impressions: Head MRI 03/02/20 00:00 IMPRESSION: Multiple small infarcts in the right parietal lobe which are acute. This is extension of the known right parietal infarct. Very limited images with enhancement but no obvious enhancing lesions. Atrophy and microvascular ischemia. EVIDENCE OF ACUTE STROKE: Yes RIGHT MCA. Head CT 03/02/20 10:54 IMPRESSION: Progression of known infarction in the right MCA territory. No evidence of hemorrhage or mass effect. EVIDENCE OF ACUTE STROKE: NO. Subacute/chronic. Modified Barium Swallow 03/04/20 07:00 IMPRESSION: LARYNGEAL PENETRATION WITH THIN LIQUIDS. NO ASPIRATION SEEN. PLEASE SEE SPEECH PATHOLOGIST REPORT FOR OTHER FINDINGS AND RECOMMENDATIONS. Carotid Doppler Study 03/05/20 00:00 IMPRESSION: NO HEMODYNAMICALLY SIGNIFICANT STENOSIS. Chest X-Ray 03/06/20 05:00 IMPRESSION: Unchanged radiographic appearance of the chest. Assessment & Plan - Diagnosis (1) Stage IV carcinoma of ovary Qualifiers: Laterality: unspecified laterality Qualified Code(s): C56.9 - Malignant neoplasm of unspecified ovary Is this a current diagnosis for this admission?: Yes (2) Staphylococcus aureus bacteremia Is this a current diagnosis for this admission?: Yes - Plan Summary Plan Summary: This is a 74-year-old female with persistent staph bacteremia, likely related to her Mediport. The Mediport will need to be removed. I will plan to do this at the bedside. Patient is severely thrombocytopenic. I will transfuse the patient with platelets, prior to removal of her Mediport. Plan to discuss this with her who is her medical power of business attorney.
[2020-03-06] MEDS ORDERED: NORMAL SALINE 250 ML IV PRN (10:21)
[2020-03-06] MEDS: ASPIRIN 81 MG TABLET, CHEWABLE PO SCH (10:49)
[2020-03-06] MEDS: METOPROLOL SUCCINATE 25 MG TAB.SR.24H PO SCH (10:51)
[2020-03-06] MEDS: CLOPIDOGREL BISULFATE 75 MG TABLET PO SCH (10:52)
[2020-03-06] MEDS: FILGRASTIM-AAFI 300 MCG/0.5 ML SYRINGE SUBCUT SCH (10:52)
--- NOTE | 2020-03-06 11:11 | PDOC PROGRESS REPORT ---
Subjective Progress Note for:: 03/06/20 Subjective:: 03/05/2020: Patient is nonverbal. She is hemodynamically stable. She has persistent bacteremia. 03/06/2020: Patient was seen and examined. She is nonverbal and cannot provide any history. Hemoglobin and platelet count is low and she will be transfused as per hematology recommendations. Physical Exam General appearance: PRESENT: obese Head exam: PRESENT: atraumatic, normocephalic Eye exam: ABSENT: conjunctival injection Ear exam: ABSENT: bleeding, drainage Mouth exam: PRESENT: neck supple Neck exam: ABSENT: meningismus, tracheostomy Respiratory exam: PRESENT: rhonchi Cardiovascular exam: PRESENT: RRR Pulses: PRESENT: +1 pedal pulses bilateral GI/Abdominal exam: PRESENT: normal bowel sounds. ABSENT: tenderness Rectal exam: PRESENT: deferred Neurological exam: PRESENT: altered Reason For Visit: ACUTE STROKE,PANCYTOPENIA Physical Exam Vital Signs: Temp Pulse Resp BP Pulse Ox 97.3 F 83 16 145/74 H 99 03/06/20 10:41 03/06/20 10:41 03/06/20 10:41 03/06/20 10:41 03/06/20 10:41 Pulse Oximeter Continuous Start: 03/02/20 14:07 Freq: RTQ4 Status: Hold Protocol: Document 03/02/20 16:00 IFEOMA (Rec: 03/02/20 16:14 J [email or web address]) Pulse Oximetry Assessment Oxygen Saturation (92-100) 94 Fraction of Inspired Oxygen (FIO2) 21 Equipment Usage Equipment Standby Continuous SpO2 Machine # 0 Additional RT Notes Other pt on nurse monitor Intake & Output 03/05/20 03/06/20 03/07/20 06:59 06:59 06:59 Intake Total 1732 1360 0 Output Total 200 440 Balance 1532 920 0 Weight 222 lb 3.615 oz 221 lb 5.506 oz Results Laboratory Results: 03/06/20 06:05 03/05/20 17:04 03/04/20 03/05/20 03/06/20 05:30 17:04 06:05 WBC 2.9 L D RBC 2.24 L Hgb 6.9 L Hct 20.6 L MCV 92 MCH 30.8 MCHC 33.5 RDW 14.5 H Plt Count 6 L* Sodium 138.0 Potassium 3.7 Chloride 109 H Carbon Dioxide 25 Anion Gap 4 L BUN 21 H Creatinine 0.85 Est GFR ( Amer) > 60 Glucose 99 Calcium 8.4 Blood Type A POSITIVE Antibody Screen NEGATIVE 03/04/20 06:36 Blood Blood Culture (PCR) - Final Staphylococcus Aureus 03/04/20 06:36 Blood Blood Culture - Final Staphylococcus Aureus 03/04/20 05:30 Blood Blood Culture (PCR) - Final Staphylococcus Aureus 03/04/20 05:30 Blood Blood Culture - Final Staphylococcus Aureus 03/02/20 13:05 Blood Blood Culture (PCR) - Final Staphylococcus Aureus 03/02/20 13:05 Blood Blood Culture - Final Staphylococcus Aureus 03/02/20 03/02/20 10:55 10:55 Creatine Kinase 147 H CK-MB (CK-2) 2.41 Troponin I 0.069 Impressions: Head MRI 03/02/20 00:00 IMPRESSION: Multiple small infarcts in the right parietal lobe which are acute. This is extension of the known right parietal infarct. Very limited images with enhancement but no obvious enhancing lesions. Atrophy and microvascular ischemia. EVIDENCE OF ACUTE STROKE: Yes RIGHT MCA. Head CT 03/02/20 10:54 IMPRESSION: Progression of known infarction in the right MCA territory. No evidence of hemorrhage or mass effect. EVIDENCE OF ACUTE STROKE: NO. Subacute/chronic. Modified Barium Swallow 03/04/20 07:00 IMPRESSION: LARYNGEAL PENETRATION WITH THIN LIQUIDS. NO ASPIRATION SEEN. PLEASE SEE SPEECH PATHOLOGIST REPORT FOR OTHER FINDINGS AND RECOMMENDATIONS. Carotid Doppler Study 03/05/20 00:00 IMPRESSION: NO HEMODYNAMICALLY SIGNIFICANT STENOSIS. Chest X-Ray 03/06/20 05:00 IMPRESSION: Unchanged radiographic appearance of the chest. Assessment and Plan - Diagnosis (1) Acute ischemic stroke Is this a current diagnosis for this admission?: Yes Plan: Acute infarcts confirmed on MRI once again within the right MCA territory. 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 New symptoms seem to be aphasia, dysarthria, complete paralysis of the left arm [CVA in 2019 left here with LUE and LLE paresis]. MBS showing poor oral radiology receptionist but no evidence of aspiration. Speech therapist recommending pured diet with thin liquids but there is concern that patient would not meet her nutritional needs. PT and Occupational Therapy Continue to review telemetry for any evidence of occult atrial arrhythmia. Aspirin and Plavix. LDL of 53 therefore statin is not required. Low risk echo. Unremarkable carotid ultrasound. GI prophylaxis and SCDs Dr. Chacon discussed with patient's who wishes for continued full care but open to having further discussion with palliative care. Consulted. 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 Overton's office on 02/27/2020. Has received filgrastim. Dr. Chacon discussed with Oncology. Blood and platelet transfusion today as per hematology recommendations (3) Staphylococcus aureus bacteremia Is this a current diagnosis for this admission?: Yes Plan: High burden MSSA bacteremia resulted in <24 hours. TTE negative for vege tations. Potential source is from CVC/Port-cath. Vancomycin discontinued. Cefazolin started. Repeat blood cultures still positive. We will need to remove patient's port. ID and surgery consulted. (4) Stage IV carcinoma of ovary Qualifiers: Laterality: unspecified laterality Qualified Code(s): C56.9 - Malignant neoplasm of unspecified ovary Is this a current diagnosis for this admission?: Yes Plan: Oncology consulted. Dr. Chacon discussed with Dr. Lau. 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 Diagnosed September 2019. Receiving chemo with carboplatin and paclitaxel third cycle on 02/19/2020. (5) Malignant pleural effusion Is this a current diagnosis for this admission?: Yes Plan: Right lower lobe opacities noted. Suspected that this is likely secondary to patient's remnants of right pleural effusion from malignant spread that was noted on prior visit last year will monitor. Pulse ox is adequate on room air. (6) Morbid obesity with BMI of 40.0-44.9, adult Is this a current diagnosis for this admission?: Yes Plan: Hemoglobin A1c and lipid panel within normal limits.
[2020-03-06] MEDS: DIPHENHYDRAMINE HCL 25 MG/10 ML UDC PO PRN ×2 (12:43→22:33)
[2020-03-06] MEDS: ACETAMINOPHEN 325 MG TABLET PO PRN ×2 (12:43→22:33)
[2020-03-06 18:34] LABS: ANION GAP 5 (5-19); BLOOD UREA NITROGEN 18 mg/dL (7-20); CALCIUM 8.5 mg/dL (8.4-10.2); CARBON DIOXIDE 28 mmol/L (22-30); CHLORIDE 107 mmol/L (98-107); GLUCOSE 91 mg/dL (75-110); POTASSIUM 3.2 mmol/L (3.6-5.0)
--- NOTE | 2020-03-06 21:09 | Operative Report ---
Nonrecallable Operative Report DATE OF SURGERY: 03/06/20 PREOPERATIVE DIAGNOSIS: infected mediport POSTOPERATIVE DIAGNOSIS: Abscess within the mediport capsule OPERATION: removal of mediport SURGEON: KUMAR GAMEZ ANESTHESIA: Local TISSUE REMOVED OR ALTERED: 1. mediport. 2. wound culture COMPLICATIONS: none apparent ESTIMATED BLOOD LOSS: minimal PROCEDURE: drains/implants: none procedure in-detail: After informed consent was obtained from the patient's , the chest was prepped and draped in normal, sterile fashion. 1% lidocaine was used to anesthetize the skin around the mediport. The capsule was incised, and a small amount of jaja pus was encountered. Culture was taken. The catheter and hub were removed as one continuous piece. Owing to active infection, the wound was not completely closed. A single 3-0 vicryl subcuticular stitch was used to loosely approximate the incision. A dressing was fashioned, and the procedure was concluded. All sponge, instrument, and needle counts were correct. Condition: fair
[2020-03-06] MEDS: FAMOTIDINE INJ/PF 20 MG/2 ML SDV IV SCH (21:45)
[2020-03-07] MEDS: CEFAZOLIN SODIUM 2 GM in DEXTROSE 5%-WATER 100 ML IV SCH ×3 (05:12→21:12)
[2020-03-07 08:12] LABS: HEMATOCRIT 24.5 % (36.0-47.0); HEMOGLOBIN 8.3 g/dL (12.0-15.5); MEAN CORPUSCULAR HEMOGLOBIN 30.3 pg (27.0-33.4); MEAN CORPUSCULAR VOLUME 89 fl (80-97); RED BLOOD COUNT 2.75 10^6/uL (3.72-5.28); RED CELL DISTRIBUTION WIDTH 16.2 % (11.5-14.0); WHITE BLOOD COUNT 4.4 10^3/uL (4.0-10.5)
[2020-03-07 08:43] LABS: PLATELET COUNT 32 10^3/uL (150-450)
--- NOTE | 2020-03-07 08:49 | Progress Note ---
Provider Note Provider Note: Patient had port removed yesterday. Today' CBC is much improved after transfusions. GCSF has been stopped. Continue antibiotics. Will monitor blood counts and continue transfusion support as indicated.
[2020-03-07] MEDS: CLOPIDOGREL BISULFATE 75 MG TABLET PO SCH (09:09)
[2020-03-07] MEDS: ASPIRIN 81 MG TABLET, CHEWABLE PO SCH (09:09)
[2020-03-07] MEDS: METOPROLOL TARTRATE 25 MG TABLET PO SCH ×2 (10:38→21:12)
--- NOTE | 2020-03-07 11:01 | PDOC PROGRESS REPORT ---
Subjective Progress Note for:: 03/07/20 Subjective:: 03/05/2020: Patient is nonverbal. She is hemodynamically stable. She has persistent bacteremia. 03/06/2020: Patient was seen and examined. She is nonverbal and cannot provide any history. Hemoglobin and platelet count is low and she will be transfused as per hematology recommendations. 03/07/2020: Patient was seen and examined. She is nonverbal. Port was removed yesterday with jaja pus noted. Physical Exam General appearance: PRESENT: obese Head exam: PRESENT: atraumatic, normocephalic Eye exam: ABSENT: conjunctival injection Ear exam: ABSENT: bleeding, drainage Mouth exam: PRESENT: neck supple Neck exam: ABSENT: meningismus, tracheostomy Respiratory exam: PRESENT: rhonchi Cardiovascular exam: PRESENT: RRR Pulses: PRESENT: +1 pedal pulses bilateral GI/Abdominal exam: PRESENT: normal bowel sounds. ABSENT: tenderness Rectal exam: PRESENT: deferred Neurological exam: PRESENT: altered Reason For Visit: ACUTE STROKE,PANCYTOPENIA Physical Exam Vital Signs: Temp Pulse Resp BP Pulse Ox 97.5 F 74 18 147/70 H 100 03/07/20 08:00 03/07/20 08:00 03/07/20 08:00 03/07/20 08:00 03/07/20 08:00 Pulse Oximeter Continuous Start: 03/02/20 14:07 Freq: RTQ4 Status: Hold Protocol: Document 03/02/20 16:00 IFEOMA (Rec: 03/02/20 16:14 [facility] [email or web address]) Pulse Oximetry Assessment Oxygen Saturation (92-100) 94 Fraction of Inspired Oxygen (FIO2) 21 Equipment Usage Equipment Standby Continuous SpO2 Machine # 0 Additional RT Notes Other pt on nurse monitor Intake & Output 03/06/20 03/07/20 03/08/20 06:59 06:59 06:59 Intake Total 1360 1967 Output Total 440 1500 Balance 920 467 Weight 221 lb 5.506 oz 240 lb 15.444 oz Results Laboratory Results: 03/07/20 08:01 03/06/20 18:00 03/04/20 03/06/20 03/07/20 05:30 18:00 08:01 WBC 4.4 RBC 2.75 L Hgb 8.3 L Hct 24.5 L MCV 89 MCH 30.3 MCHC 34.0 RDW 16.2 H Plt Count 32 L D Sodium 139.9 Potassium 3.2 L Chloride 107 Carbon Dioxide 28 Anion Gap 5 BUN 18 Creatinine 0.61 Est GFR ( Amer) > 60 Glucose 91 Calcium 8.5 Blood Type A POSITIVE Antibody Screen NEGATIVE 03/04/20 06:36 Blood Blood Culture (PCR) - Final Staphylococcus Aureus 03/04/20 06:36 Blood Blood Culture - Final Staphylococcus Aureus 03/04/20 05:30 Blood Blood Culture (PCR) - Final Staphylococcus Aureus 03/04/20 05:30 Blood Blood Culture - Final Staphylococcus Aureus 03/02/20 03/02/20 10:55 10:55 Creatine Kinase 147 H CK-MB (CK-2) 2.41 Troponin I 0.069 Impressions: Head MRI 03/02/20 00:00 IMPRESSION: Multiple small infarcts in the right parietal lobe which are acute. This is extension of the known right parietal infarct. Very limited images with enhancement but no obvious enhancing lesions. Atrophy and microvascular ischemia. EVIDENCE OF ACUTE STROKE: Yes RIGHT MCA. Head CT 03/02/20 10:54 IMPRESSION: Progression of known infarction in the right MCA territory. No evidence of hemorrhage or mass effect. EVIDENCE OF ACUTE STROKE: NO. Subacute/chronic. Modified Barium Swallow 03/04/20 07:00 IMPRESSION: LARYNGEAL PENETRATION WITH THIN LIQUIDS. NO ASPIRATION SEEN. PLEASE SEE SPEECH PATHOLOGIST REPORT FOR OTHER FINDINGS AND RECOMMENDATIONS. Carotid Doppler Study 03/05/20 00:00 IMPRESSION: NO HEMODYNAMICALLY SIGNIFICANT STENOSIS. Chest X-Ray 03/06/20 05:00 IMPRESSION: Unchanged radiographic appearance of the chest. Assessment and Plan - Diagnosis (1) Acute ischemic stroke Is this a current diagnosis for this admission?: Yes Plan: Acute infarcts confirmed on MRI once again within the right MCA territory. 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 New symptoms seem to be aphasia, dysarthria, complete paralysis of the left arm [CVA in 2019 left here with LUE and LLE paresis]. MBS showing poor oral salon receptionist but no evidence of aspiration. Speech therapist recommending pured diet with thin liquids but there is concern that patient would not meet her nutritional needs. PT and Occupational Therapy Continue to review telemetry for any evidence of occult atrial arrhythmia. Aspirin and Plavix. LDL of 53 therefore statin is not required. Low risk echo. Unremarkable carotid ultrasound. GI prophylaxis and SCDs Dr. Chacon discussed with patient's who wishes for continued full care but open to having further discussion with palliative care. Consulted. 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 Overton's office on 02/27/2020. Has received filgrastim. Dr. Chacon discussed with Oncology. Blood and platelet transfusion as per hematology recommendations (3) Staphylococcus aureus bacteremia Is this a current diagnosis for this admission?: Yes Plan: High burden MSSA bacteremia resulted in <24 hours. TTE negative for veget ations. The source is from CVC/Port-cath. Vancomycin discontinued. Cefazolin started. Repeat blood cultures still positive. Port was removed yesterday with jaja pus noted. (4) Stage IV carcinoma of ovary Qualifiers: Laterality: unspecified laterality Qualified Code(s): C56.9 - Malignant neoplasm of unspecified ovary Is this a current diagnosis for this admission?: Yes Plan: Oncology consulted. Dr. Chacon discussed with Dr. Lau. 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 Diagnosed September 2019. Receiving chemo with carboplatin and paclitaxel third cycle on 02/19/2020. (5) Malignant pleural effusion Is this a current diagnosis for this admission?: Yes Plan: Right lower lobe opacities noted. Suspected that this is likely secondary to patient's remnants of right pleural effusion from malignant spread that was noted on prior visit last year will monitor. Pulse ox is adequate on room air. (6) Morbid obesity with BMI of 40.0-44.9, adult Is this a current diagnosis for this admission?: Yes Plan: Hemoglobin A1c and lipid panel within normal limits.
--- NOTE | 2020-03-07 14:20 | RADIOLOGY REPORT (SQ) ---
EXAM DESCRIPTION: CHEST SINGLE VIEW IMAGES COMPLETED DATE/TIME: 03/07/2020 2:00 pm REASON FOR STUDY: cvc COMPARISON: 03/06/2020 EXAM PARAMETERS: NUMBER OF VIEWS: One view. TECHNIQUE: Single frontal radiographic view of the chest acquired. RADIATION DOSE: NA LIMITATIONS: None. FINDINGS: LUNGS AND PLEURA: Persistent right moderate to large pleural effusion and right middle -l ower lobe opacity. Small left pleural effusion suggested. No pneumothorax. MEDIASTINUM AND HILAR STRUCTURES: Stable appearance. HEART AND VASCULAR STRUCTURES: Stable appearance. BONES: No acute findings. HARDWARE: Since the previous examination, the right subclavian central line has been removed. Inter kamron placement of a left subclavian central line, with the tip suggested in a left upper lobe vessel. OTHER: No other significant finding. IMPRESSION: 1. Interval removal of Right central venous line since the prior examination performed on 03/06/2020. 2. Interval placement of Left central venous line with the tip in a left upper lobe vessel(The result s of this examination were discussed with the patient's provider on 03/07/2020 at 14:11 hours. He stat es that the Left central line has been removed). 3. No other significant interval changes. No evidence of pneumothorax. TECHNICAL DOCUMENTATION: JOB ID: [id number] 2010 [email or web address]- All Rights Reserved Reading location - IP/workstation name: [email or web address]
--- NOTE | 2020-03-07 15:55 | RADIOLOGY REPORT (SQ) ---
EXAM DESCRIPTION: CHEST SINGLE VIEW IMAGES COMPLETED DATE/TIME: 03/07/2020 3:09 pm REASON FOR STUDY: placement of central line COMPARISON: Earlier the same day. NUMBER OF VIEWS: One view. TECHNIQUE: Single frontal radiographic image of the chest acquired. LIMITATIONS: None. FINDINGS: LUNGS AND PLEURA: Stable appearance. No pneumothorax. MEDIASTINUM AND HEART: Stable heart size and mediastinal structures. SUPPORT DEVICES: Left-sided central line coiled with tip pointing superiorly at level of AP window no t significantly changed. This could be in a lumbar vein or possibly arterial. BONY STRUCTURES: No acute findings. HARDWARE: None. OTHER: No other significant finding. IMPRESSION: Left central line position as described. No significant change. Reading location - IP/workstation name: [email or web address]
--- NOTE | 2020-03-07 16:14 | Progress Note ---
Provider Note Provider Note: Patient had a port removed yesterday. She has no IV access whatsoever. She receives IV medications and blood products. Attempting left IJ central venous catheter placement was unsuccessful. I used ultrasound for guidance. Blood was dark and nonpulsating. I actually used tubing to measure pressure through the catheter. Again the blood wagner only few centimeter above the sternal level and was not pulsating. I also used ultrasound to confirm positioning of catheter in IJ vein. I was surprised that chest x-ray shows that the line did not appear to be in the proper place. I removed the line and applied pressure until there was no bleeding. I called Dr. Gonzalez for line placement. After further research, I believe the central venous catheter was located in the left superior intercostal vein.
--- NOTE | 2020-03-07 17:24 | RADIOLOGY REPORT (SQ) ---
EXAM DESCRIPTION: CHEST SINGLE VIEW IMAGES COMPLETED DATE/TIME: 03/07/2020 5:10 pm REASON FOR STUDY: confirm central line placement COMPARISON: 03/07/2020 EXAM PARAMETERS: NUMBER OF VIEWS: One view. TECHNIQUE: Single frontal radiographic view of the chest acquired. RADIATION DOSE: NA LIMITATIONS: None. FINDINGS: LUNGS AND PLEURA: No pneumothorax. Persistent right moderate pleural effusion and right mid-lower lung zone opacities. Small left pleural effusion suggested. MEDIASTINUM AND HILAR STRUCTURES: Stable appearance. HEART AND VASCULAR STRUCTURES: Stable appearance. BONES: No acute findings. HARDWARE: Interval placement of right internal jugular venous line with the tip in the region of the right brachiocephalic vein -superior vena cava. OTHER: No other significant finding. IMPRESSION: 1. Interval placement of right internal jugular line since the prior examination perfor med on the same date, tip suggested at the junction of the right brachiocephalic vein--superior vena cava. No pneumothorax. TECHNICAL DOCUMENTATION: JOB ID: [id number] 2010 [email or web address]- All Rights Reserved Reading location - IP/workstation name: [email or web address]
[2020-03-07] MEDS: DEXTROSE 5%-NORMAL SALINE 1,000 ML IV PRN (18:14)
[2020-03-07] MEDS: FAMOTIDINE INJ/PF 20 MG/2 ML SDV IV SCH (21:12)
--- NOTE | 2020-03-07 23:59 | Operative Report ---
Nonrecallable Operative Report DATE OF SURGERY: 03/07/20 PREOPERATIVE DIAGNOSIS: sepsis, bacteremia, line sepsis POSTOPERATIVE DIAGNOSIS: Bacteremia line sepsis OPERATION: Right internal jugular line placement SURGEON: SAIRA BINGHAM ANESTHESIA: Local TISSUE REMOVED OR ALTERED: None COMPLICATIONS: None ESTIMATED BLOOD LOSS: 5 cc INTRAOPERATIVE FINDINGS: See note PROCEDURE: The procedure was done with the patient was lying in her hospital bed. After appropriate timeout site verification the procedure commenced. The right neck was prepped and draped in usual sterile fashion. Using 1% lidocaine plain a small skin wheal was made over the anterior portion of the sternocleidomastoid muscle. Then using a 16-gauge needle of the right internal jugular vein was accessed and through the needle a wire was placed into the superior vena cava. Using the 11 blade supplied with the kit a small skin inocencia was made at the entrance of the wire. The dilator was then used to dilate the tract and a triple-lumen 16-gauge catheter was placed over the wire into the superior vena cava via the internal jugular vein. All all 3 ports were accessed and flushed easily and withdrew easily. The line was fixed in the skin with 2-0 nylon and a sterile dressing was applied. Follow-up chest x-ray revealed good placement. The patient tolerated the procedure well.
[2020-03-08] MEDS: CEFAZOLIN SODIUM 2 GM in DEXTROSE 5%-WATER 100 ML IV SCH ×3 (05:52→21:10)
[2020-03-08 07:02] LABS: HEMATOCRIT 25.1 % (36.0-47.0); HEMOGLOBIN 8.6 g/dL (12.0-15.5); MEAN CORPUSCULAR HEMOGLOBIN 30.6 pg (27.0-33.4); MEAN CORPUSCULAR HGB CONC 34.1 g/dL (32.0-36.0); MEAN CORPUSCULAR VOLUME 90 fl (80-97); RED CELL DISTRIBUTION WIDTH 16.2 % (11.5-14.0); WHITE BLOOD COUNT 3.8 10^3/uL (4.0-10.5)
[2020-03-08 07:12] LABS: BLOOD UREA NITROGEN 15 mg/dL (7-20); CALCIUM 7.3 mg/dL (8.4-10.2); GLUCOSE 86 mg/dL (75-110)
[2020-03-08 07:17] LABS: CARBON DIOXIDE 28 mmol/L (22-30); CHLORIDE 113 mmol/L (98-107)
[2020-03-08 07:21] LABS: ANION GAP 1 (5-19); POTASSIUM 2.5 mmol/L (3.6-5.0)
[2020-03-08 07:32] LABS: PLATELET COUNT 19 10^3/uL (150-450)
[2020-03-08 07:36] LABS: ABSOLUTE LYMPHOCYTES# (MANUAL) 0.6 10^3/uL (0.5-4.7); ABSOLUTE MONOCYTES # (MANUAL) 0.2 10^3/uL (0.1-1.4); ANISOCYTOSIS 1+; BASOPHILS % (MANUAL) 0 % (0-2); EOSINOPHILS % (MANUAL) 0 % (0-6); LYMPHOCYTES % (MANUAL) 15 % (13-45); MONOCYTES % (MANUAL) 6 % (3-13); NUCLEATED RED BLOOD CELLS 1 /100 WBC (0); PLATELET COMMENT DECREASED; SEGMENTED NEUTROPHILS % (MAN) 79 % (42-78); TOTAL CELLS COUNTED 100; TOXIC VACUOLATION PRESENT
[2020-03-08 07:38] LABS: POIKILOCYTOSIS 1+; TARGET CELLS 1+
--- NOTE | 2020-03-08 08:09 | Progress Note ---
Provider Note Provider Note: no complications related to the right internal jugular line placed yesteday surgery will sign off.
[2020-03-08] MEDS: CLOPIDOGREL BISULFATE 75 MG TABLET PO SCH (10:32)
[2020-03-08] MEDS: METOPROLOL TARTRATE 25 MG TABLET PO SCH ×2 (10:36→21:10)
[2020-03-08] MEDS: POTASSIUM CHLORIDE 20 MEQ/50 ML RTU IV SCH ×3 (10:36→16:05)
--- NOTE | 2020-03-08 11:22 | PDOC PROGRESS REPORT ---
Subjective Progress Note for:: 03/08/20 Subjective:: The patient is minimally interactive. She never opens her eyes to establish eye contact. Her responses to verbal interaction or mumbled possibly yes and no answers. Reason For Visit: ACUTE STROKE,PANCYTOPENIA Physical Exam Vital Signs: Temp Pulse Resp BP Pulse Ox 97.4 F 88 16 147/86 H 98 03/08/20 07:56 03/08/20 07:56 03/08/20 07:56 03/08/20 07:56 03/08/20 07:56 Pulse Oximeter Continuous Start: 03/02/20 14:07 Freq: RTQ4 Status: Complete Protocol: Document 03/02/20 16:00 J (Rec: 03/02/20 16:14 J [email or web address]) Pulse Oximetry Assessment Oxygen Saturation (92-100) 94 Fraction of Inspired Oxygen (FIO2) 21 Equipment Usage Equipment Standby Continuous SpO2 Machine # 0 Additional RT Notes Other pt on nurse monitor Intake & Output 03/07/20 03/08/20 03/09/20 06:59 06:59 06:59 Intake Total 1967 890 Output Total 1500 400 Balance 467 490 Weight 109.3 kg 110.1 kg General appearance: PRESENT: mild distress - Difficult to assess due to minimal interaction, morbidly obese. ABSENT: cooperative - No eye contact. No eye opening. No verbal interaction. Exam: Limitations to the exam due to patient's inability to interact including not opening her eyes for following simple commands such as take a deep breath. Head exam: PRESENT: other - Alopecia (likely secondary to chemotherapy) Eye exam: PRESENT: other - Unable to assess Ear exam: PRESENT: normal external ear exam. ABSENT: bleeding, drainage Mouth exam: PRESENT: other - Unable to assess Teeth exam: PRESENT: other - Unable to assess Throat exam: PRESENT: other - Unable to assess Respiratory exam: PRESENT: clear to auscultation carlita - Anteriorly, decreased breath sounds - At bases, symmetrical, unlabored. ABSENT: prolonged expiratory phas, tachypnea, wheezes Cardiovascular exam: PRESENT: +S1, +S2, tachycardia - With underlying regular rhythm. ABSENT: diastolic murmur, systolic murmur GI/Abdominal exam: PRESENT: diminished bowel sounds, distended, soft. ABSENT: guarding, tenderness Rectal exam: PRESENT: deferred Extremities exam: PRESENT: pedal edema Musculoskeletal exam: ABSENT: ambulatory Neurological exam: PRESENT: awake, oriented to person - Did respond to her name but unable to further assess, other - somnolent therefore difficult to fully assess. ABSENT: alert Psychiatric exam: PRESENT: flat affect. ABSENT: agitated, anxious Focused psych exam: PRESENT: other - Unable to assess Skin exam: PRESENT: dry, warm. ABSENT: rash Results Laboratory Results: 03/08/20 06:06 03/08/20 06:06 03/08/20 03/08/20 06:06 06:06 WBC 3.8 L RBC 2.80 L Hgb 8.6 L Hct 25.1 L MCV 90 MCH 30.6 MCHC 34.1 RDW 16.2 H Plt Count 19 L* Seg Neutrophils % Not Reportable Sodium 142.0 Potassium 2.5 L* Chloride 113 H Carbon Dioxide 28 Anion Gap 1 L BUN 15 Creatinine 0.44 L Est GFR ( Amer) > 60 Glucose 86 Calcium 7.3 L 03/06/20 20:30 Catheter Tip - Port A Cath Line Catheter Tip Culture - Final Staphylococcus Aureus 03/02/20 03/02/20 10:55 10:55 Creatine Kinase 147 H CK-MB (CK-2) 2.41 Troponin I 0.069 Impressions: Head MRI 03/02/20 00:00 IMPRESSION: Multiple small infarcts in the right parietal lobe which are acute. This is extension of the known right parietal infarct. Very limited images with enhancement but no obvious enhancing lesions. Atrophy and microvascular ischemia. EVIDENCE OF ACUTE STROKE: Yes RIGHT MCA. Head CT 03/02/20 10:54 IMPRESSION: Progression of known infarction in the right MCA territory. No evidence of hemorrhage or mass effect. EVIDENCE OF ACUTE STROKE: NO. Subacute/chronic. Modified Barium Swallow 03/04/20 07:00 IMPRESSION: LARYNGEAL PENETRATION WITH THIN LIQUIDS. NO ASPIRATION SEEN. PLEASE SEE SPEECH PATHOLOGIST REPORT FOR OTHER FINDINGS AND RECOMMENDATIONS. Carotid Doppler Study 03/05/20 00:00 IMPRESSION: NO HEMODYNAMICALLY SIGNIFICANT STENOSIS. Chest X-Ray 03/07/20 00:00 IMPRESSION: 1. Interval placement of right internal jugular line since the prior examination performed on the same date, tip suggested at the junction of the right brachiocephalic vein--superior vena cava. No pneumothorax. Assessment and Plan - Diagnosis (1) Acute ischemic stroke Is this a current diagnosis for this admission?: Yes Plan: Acute infarcts confirmed on MRI once again within the right MCA territory. 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 New symptoms seem to be aphasia, dysarthria, complete paralysis of the left arm [CVA in 2019 left here with LUE and LLE paresis]. 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 Speech therapist recommending pured diet with thin liquids but there is concern that patient would not meet her nutritional needs. PT and Occupational Therapy Continue to review telemetry for any evidence of occult atrial arrhythmia. Aspirin and Plavix. LDL of 53 therefore statin is not required. Low risk echo. Unremarkable carotid ultrasound. GI prophylaxis and SCDs Dr. Chacon discussed with patient's who wishes for continued full care but open to having further discussion with palliative care. Consulted. 03/08/2020 The patient was not verbally interactive today. This made the assessment very difficult. It is difficult to know if this is secondary to infection or progression of stroke. She was working with therapy earlier this week but in this current state I do not think it will be successful. Continue current care and monitor closely. Unfortunately her platelets have decreased back to 19,000. I will hold the aspirin and Plavix for now. Another platelet count is due tomorrow. If they decrease further I will discuss with hematology about additional platelet transfusions. 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 Overton's office on 02/27/2020. Has received filgrastim. Dr. Chacon discussed with Oncology. Blood and platelet transfusion as per hematology recommendations 03/09/2020 White cell count is declining now that GCSF has been stopped. Hemoglobin continues to slowly improve however her platelet count is down again today. I am holding the aspirin and Plavix pending tomorrow's platelet count. Unfortunately there is risk of bleeding versus risk of recurrent stroke. At this point her bleeding risk is higher. Significant platelet aggregation is much less likely at this low platelet count. (3) Staphylococcus aureus bacteremia Is this a current diagnosis for this admission?: Yes Plan: High burden MSSA bacteremia resulted in <24 hours. TTE negative for vegetations. The source is from CVC/Port-cath. Vancomycin discontinued. Cefazolin started. Repeat blood cultures still positive. Port was removed yesterday with jaja pus noted. 03/08/2020 Per identification and sensitivities cefazolin is an appropriate antibiotic choice. I am repeating blood cultures tomorrow as the length of treatment will infect start from the first set of negative blood cultures. It is proposed that the decubitus ulcer seeded the patient's blood. Purulent drainage accumulated at the Port-A-Cath site. Was unable to examine her sacral area today. Hopefully she will be more alert tomorrow so that I can examine directly. (4) Stage IV carcinoma of ovary Qualifiers: Laterality: unspecified laterality Qualified Code(s): C56.9 - Malignant neoplasm of unspecified ovary Is this a current diagnosis for this admission?: Yes Plan: Oncology consulted. Dr. Chacon discussed with Dr. Lau. 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 Diagnosed September 2019. Receiving chemo with carboplatin and paclitaxel third cycle on 02/19/2020. 03/08/2020 She had her third cycle of paclitaxel and carboplatin late last month. Cell counts as noted above. (5) Malignant pleural effusion Is this a current diagnosis for this admission?: Yes Plan: Right lower lobe opacities noted. Suspected that this is likely secondary to patient's remnants of right pleural effusion from malignant spread that was noted on prior visit last year will monitor. Pulse ox is adequate on room air. 03/08/2020 Continue to monitor as noted above. (6) Morbid obesity with BMI of 45.0-49.9, adult Is this a current diagnosis for this admission?: Yes Plan: 03/08/2020 Due to the patient's continued illness no active weight loss plans at this time. (7) Decubitus ulcer of sacral region, stage 3 Is this a current diagnosis for this admission?: Yes Plan: 03/08/2020 Present on admission. Unable to turn patient today to examine. Will attempt assessment again tomorrow. - Time Time Spent with patient: 15-24 minutes Medications reviewed and adjusted accordingly: Yes Anticipated discharge: Other
--- NOTE | 2020-03-08 13:47 | CDI QUERY ---
CDI Query CDI Review: Dear Provider: To better reflect your patients severity of illness, morbidity, and resource utilization Please specify and document in the Progress Notes and Discharge Summary if you are monitoring / treating / evaluating any of the following conditions: Query Clinical indicators Please clarify and specify if this patient currently has DECUBITUS ULCERS and if they were PRESENT ON ADMISSION. Please include the site and stage of each decubitus ulcer. Please include this documentation in your Progress Notes, the Discharge Summary and indicate Present on Admission. Thank you for your excellent documentation on this patient. I appreciate your continued strive for excellence. Noted in Progress Notes: Staphylococcus aureus bacteremia High burden bacteremia resulted in less than 24 hours. Patient also awaits cardiac murmur [uncertain if chronic] will need echocardiogram. Will start TTE. Potential source is from skin breakdown/decubitus ulcers. Per Nursing Admission Assessment 03/02/2020 Pressure Ulcer Stage III or IV Yes The terms probable, suspected, likely, possible or still to be ruled out may be used if you are unable to determine the exact nature of a condition. Thank you for your consideration, Clinical Documentation Physician Advisors CRISTHIAN Dc RN, BSN RN Office [phone] Office [phone]
[2020-03-08] MEDS: DEXTROSE 5%-NORMAL SALINE 1,000 ML IV PRN (13:59)
[2020-03-08] MEDS: FAMOTIDINE INJ/PF 20 MG/2 ML SDV IV SCH (21:10)
[2020-03-08] MEDS: ACETAMINOPHEN 650 MG SUPP.RECT PR PRN (21:44)
[2020-03-09 01:50] LABS: ABSOLUTE LYMPHOCYTES (AUTO) 0.9 10^3/uL (0.5-4.7); ABSOLUTE MONOCYTES (AUTO) 0.2 10^3/uL (0.1-1.4); ABSOLUTE NEUT (AUTO) 2.9 10^3/uL (1.7-8.2); BASOPHILS % (AUTO) 0.2 % (0-2); EOSINOPHILS % (AUTO) 0.1 % (0-6); HEMATOCRIT 24.6 % (36.0-47.0); HEMOGLOBIN 8.1 g/dL (12.0-15.5); LYMPHOCYTES % (AUTO) 22.1 % (13-45); MEAN CORPUSCULAR HEMOGLOBIN 29.6 pg (27.0-33.4); MEAN CORPUSCULAR VOLUME 90 fl (80-97); MONOCYTES % (AUTO) 5.3 % (3-13); RED BLOOD COUNT 2.74 10^6/uL (3.72-5.28); RED CELL DISTRIBUTION WIDTH 16.2 % (11.5-14.0); SEGMENTED NEUTROPHILS % (AUTO) 72.3 % (42-78); TOTAL CELLS COUNTED % (AUTO) 100 %
[2020-03-09 02:11] LABS: PLATELET COUNT 10 10^3/uL (150-450)
[2020-03-09] MEDS: CEFAZOLIN SODIUM 2 GM in DEXTROSE 5%-WATER 100 ML IV SCH ×3 (05:05→21:37)
[2020-03-09 06:15] LABS: BLOOD UREA NITROGEN 16 mg/dL (7-20); CALCIUM 8.3 mg/dL (8.4-10.2); CHLORIDE 110 mmol/L (98-107); GLUCOSE 91 mg/dL (75-110); POTASSIUM 3.4 mmol/L (3.6-5.0)
[2020-03-09 06:20] LABS: CARBON DIOXIDE 33 mmol/L (22-30)
[2020-03-09 06:22] LABS: ANION GAP 1 (5-19)
[2020-03-09] MEDS: METOPROLOL TARTRATE 25 MG TABLET PO SCH ×2 (09:24→21:33)
--- NOTE | 2020-03-09 09:33 | PDOC PROGRESS REPORT ---
Subjective Progress Note for:: 03/09/20 Subjective:: Pt not that communicative, not bleeding. Still requiring freq plt tx Reason For Visit: ACUTE STROKE,PANCYTOPENIA Physical Exam Vital Signs: Temp Pulse Resp BP Pulse Ox 97.8 F 76 14 152/85 H 100 03/09/20 07:24 03/09/20 07:24 03/09/20 07:24 03/09/20 07:24 03/09/20 07:24 Pulse Oximeter Continuous Start: 03/02/20 14:07 Freq: RTQ4 Status: Complete Protocol: Document 03/02/20 16:00 [email or web address] (Rec: 03/02/20 16:14 J [email or web address]) Pulse Oximetry Assessment Oxygen Saturation (92-100) 94 Fraction of Inspired Oxygen (FIO2) 21 Equipment Usage Equipment Standby Continuous SpO2 Machine # 0 Additional RT Notes Other pt on nurse monitor Intake & Output 03/08/20 03/09/20 03/10/20 06:59 06:59 06:59 Intake Total 890 1438 Output Total 400 675 Balance 490 763 Weight 110.1 kg 110.5 kg Results Laboratory Results: 03/09/20 01:22 03/09/20 05:00 03/09/20 03/09/20 01:22 05:00 WBC 4.0 RBC 2.74 L Hgb 8.1 L Hct 24.6 L MCV 90 MCH 29.6 MCHC 33.0 RDW 16.2 H Plt Count 10 L* Seg Neutrophils % 72.3 Sodium 143.6 Potassium 3.4 L Chloride 110 H Carbon Dioxide 33 H Anion Gap 1 L BUN 16 Creatinine 0.46 L Est GFR ( Amer) > 60 Glucose 91 Calcium 8.3 L Magnesium 1.6 03/06/20 20:30 Breast - Right Side Abscess Gram Stain - Final 03/06/20 20:30 Breast - Right Side Abscess Wound Culture - Final Staphylococcus Aureus No Anaerobic Organisms 03/06/20 20:30 Catheter Tip - Port A Cath Line Catheter Tip Culture - Final Staphylococcus Aureus 03/02/20 03/02/20 10:55 10:55 Creatine Kinase 147 H CK-MB (CK-2) 2.41 Troponin I 0.069 Impressions: Head MRI 03/02/20 00:00 IMPRESSION: Multiple small infarcts in the right parietal lobe which are acute. This is extension of the known right parietal infarct. Very limited images with enhancement but no obvious enhancing lesions. Atrophy and microvascular ischemia. EVIDENCE OF ACUTE STROKE: Yes RIGHT MCA. Head CT 03/02/20 10:54 IMPRESSION: Progression of known infarction in the right MCA territory. No evidence of hemorrhage or mass effect. EVIDENCE OF ACUTE STROKE: NO. Subacute/chronic. Modified Barium Swallow 03/04/20 07:00 IMPRESSION: LARYNGEAL PENETRATION WITH THIN LIQUIDS. NO ASPIRATION SEEN. PLEASE SEE SPEECH PATHOLOGIST REPORT FOR OTHER FINDINGS AND RECOMMENDATIONS. Carotid Doppler Study 03/05/20 00:00 IMPRESSION: NO HEMODYNAMICALLY SIGNIFICANT STENOSIS. Chest X-Ray 03/07/20 00:00 IMPRESSION: 1. Interval placement of right internal jugular line since the prior examination performed on the same date, tip suggested at the junction of the right brachiocephalic vein--superior vena cava. No pneumothorax. Assessment & Plan - Diagnosis (1) Pancytopenia due to antineoplastic chemotherapy Is this a current diagnosis for this admission?: Yes Plan: cont plt tx for ct <10, hb for ct <7. (2) Neutropenia Qualifiers: Neutropenia type: secondary to cancer chemotherapy Qualified Code(s): D70.1 - Agranulocytosis secondary to cancer chemotherapy; T45.1X5A - Adverse effect of antineoplastic and immunosuppressive drugs, initial encounter Is this a current diagnosis for this admission?: Yes Plan: resolved (3) Stage IV carcinoma of ovary Qualifiers: Laterality: unspecified laterality Qualified Code(s): C56.9 - Malignant neoplasm of unspecified ovary Is this a current diagnosis for this admission?: Yes Plan: no further treatment planned. Discussed w/ nursing that we would agree with comfort care if family agrees but currently said continue aggressive care. Would recommend hospitalist team to continue to discuss w family - Time Time Spent with patient: 15-24 minutes
[2020-03-09] MEDS: DEXTROSE 5%-NORMAL SALINE 1,000 ML IV PRN (10:11)
--- NOTE | 2020-03-09 12:34 | PDOC PROGRESS REPORT ---
Subjective Progress Note for:: 03/09/20 Subjective:: Patient is moribund. Attempts to answer with mumbling but no discernible definitive answer. I was bedside at a trial of feeding her lunch and she did not respond at all or attempt to swallow. Reason For Visit: ACUTE STROKE,PANCYTOPENIA Physical Exam Vital Signs: Temp Pulse Resp BP Pulse Ox 97.8 F 76 14 152/85 H 100 03/09/20 07:24 03/09/20 07:24 03/09/20 07:24 03/09/20 07:24 03/09/20 07:24 Pulse Oximeter Continuous Start: 03/02/20 14:07 Freq: RTQ4 Status: Complete Protocol: Document 03/02/20 16:00 IFEOMA (Rec: 03/02/20 16:14 J [email or web address]) Pulse Oximetry Assessment Oxygen Saturation (92-100) 94 Fraction of Inspired Oxygen (FIO2) 21 Equipment Usage Equipment Standby Continuous SpO2 Machine # 0 Additional RT Notes Other pt on nurse monitor Intake & Output 03/08/20 03/09/20 03/10/20 06:59 06:59 06:59 Intake Total 890 1438 1000 Output Total 400 675 Balance 542 168 7352 Weight 110.1 kg 110.5 kg General appearance: PRESENT: no acute distress, morbidly obese. ABSENT: chuck ative - Due to lethargic state Head exam: PRESENT: atraumatic, normocephalic Eye exam: PRESENT: other - Unable to assess Throat exam: PRESENT: other - Unable to assess Respiratory exam: PRESENT: clear to auscultation carlita - Anteriorly, decreased breath sounds - Both bases, symmetrical, unlabored. ABSENT: rales, rhonchi, tachypnea, wheezes Cardiovascular exam: PRESENT: RRR, +S1, +S2. ABSENT: diastolic murmur, irregular rhythm, systolic murmur GI/Abdominal exam: PRESENT: diminished bowel sounds, soft. ABSENT: distended, guarding, tenderness Rectal exam: PRESENT: deferred Gentrourinary exam: PRESENT: indwelling catheter Extremities exam: PRESENT: other - 3+ bilateral lower extremity edema Musculoskeletal exam: ABSENT: ambulatory Neurological exam: PRESENT: awake - Barely awake, other - Unable to further assess. ABSENT: alert Psychiatric exam: PRESENT: flat affect. ABSENT: agitated, anxious Results Laboratory Results: 03/09/20 01:22 03/09/20 05:00 03/09/20 03/09/20 01:22 05:00 WBC 4.0 RBC 2.74 L Hgb 8.1 L Hct 24.6 L MCV 90 MCH 29.6 MCHC 33.0 RDW 16.2 H Plt Count 10 L* Seg Neutrophils % 72.3 Sodium 143.6 Potassium 3.4 L Chloride 110 H Carbon Dioxide 33 H Anion Gap 1 L BUN 16 Creatinine 0.46 L Est GFR ( Amer) > 60 Glucose 91 Calcium 8.3 L Magnesium 1.6 03/06/20 20:30 Breast - Right Side Abscess Gram Stain - Final 03/06/20 20:30 Breast - Right Side Abscess Wound Culture - Final Staphylococcus Aureus No Anaerobic Organisms 03/02/20 03/02/20 10:55 10:55 Creatine Kinase 147 H CK-MB (CK-2) 2.41 Troponin I 0.069 Impressions: Head MRI 03/02/20 00:00 IMPRESSION: Multiple small infarcts in the right parietal lobe which are acute. This is extension of the known right parietal infarct. Very limited images with enhancement but no obvious enhancing lesions. Atrophy and microvascular ischemia. EVIDENCE OF ACUTE STROKE: Yes RIGHT MCA. Head CT 03/02/20 10:54 IMPRESSION: Progression of known infarction in the right MCA territory. No evidence of hemorrhage or mass effect. EVIDENCE OF ACUTE STROKE: NO. Subacute/chronic. Modified Barium Swallow 03/04/20 07:00 IMPRESSION: LARYNGEAL PENETRATION WITH THIN LIQUIDS. NO ASPIRATION SEEN. PLE ASE SEE SPEECH PATHOLOGIST REPORT FOR OTHER FINDINGS AND RECOMMENDATIONS. Carotid Doppler Study 03/05/20 00:00 IMPRESSION: NO HEMODYNAMICALLY SIGNIFICANT STENOSIS. Chest X-Ray 03/07/20 00:00 IMPRESSION: 1. Interval placement of right internal jugular line since the prior examination performed on the same date, tip suggested at the junction of the right brachiocephalic vein--superior vena cava. No pneumothorax. Assessment and Plan - Diagnosis (1) Acute ischemic stroke Is this a current diagnosis for this admission?: Yes Plan: Acute infarcts confirmed on MRI once again within the right MCA territory. 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 New symptoms seem to be aphasia, dysarthria, complete paralysis of the left arm [CVA in 2019 left here with LUE and LLE paresis]. MBS showing poor oral supervisor toy parts former but no evidence of aspiration. Speech therapist recommending pured diet with thin liquids but there is concern that patient would not meet her nutritional needs. PT and Occupational Therapy Continue to review telemetry for any evidence of occult atrial arrhythmia. Aspirin and Plavix. LDL of 53 therefore statin is not required. Low risk echo. Unremarkable carotid ultrasound. GI prophylaxis and SCDs Dr. Chacon discussed with patient's who wishes for continued full care but open to having further discussion with palliative care. Consulted. 03/08/2020 The patient was not verbally interactive today. This made the assessment very difficult. It is difficult to know if this is secondary to infection or progression of stroke. She was working with therapy earlier this week but in this current state I do not think it will be successful. Continue current care and monitor closely. Unfortunately her platelets have decreased back to 19,000. I will hold the aspirin and Plavix for now. Another platelet count is due hermelindo . If they decrease further I will discuss with hematology about additional platelet transfusions. 03/09/2020 The patient is practically obtunded. While at the bedside the nurse tried to feed her some lunch. Placing a little bit of mashed potato on her lips the patient did not respond and in fact almost appeared to be rejecting the attempts. This is more of a global decline. She has not been able to take medications. I will reach out to the family to discuss treatment plan options prior to inserting a nasogastric tube. 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 Overton's office on 02/27/2020. Has received filgrastim. Dr. Chacon discussed with Oncology. Blood and platelet transfusion as per hematology recommendations 03/08/2020 White cell count is declining now that GCSF has been stopped. Hemoglobin continues to slowly improve however her platelet count is down again today. I am holding the aspirin and Plavix pending tomorrow's platelet count. Unfortunately there is risk of bleeding versus risk of recurrent stroke. At this point her bleeding risk is higher. Significant platelet aggregation is much less likely at this low platelet count. 03/09/2020 The platelet count continues to decline. Her hemoglobin continues to decline. Her white blood cell count is back in the normal range at this time. We will continue to monitor. (3) Staphylococcus aureus bacteremia Is this a current diagnosis for this admission?: Yes Plan: High burden MSSA bacteremia resulted in <24 hours. TTE negative for vegetations. The source is from CVC/Port-cath. Vancomycin discontinued. Cefazolin started. Repeat blood cultures still positive. Port was removed yesterday with jaja pus noted. 03/08/2020 Per identification and sensitivities cefazolin is an appropriate antibiotic choice. I am repeating blood cultures tomorrow as the length of treatment will infect start from the first set of negative blood cultures. It is proposed that the decubitus ulcer seeded the patient's blood. Purulent drainage accumulated a t the Port-A-Cath site. Was unable to examine her sacral area today. Hopefully she will be more alert tomorrow so that I can examine directly. 03/09/2020 Continue cefazolin (4) Stage IV carcinoma of ovary Qualifiers: Laterality: unspecified laterality Qualified Code(s): C56.9 - Malignant neoplasm of unspecified ovary Is this a current diagnosis for this admission?: Yes Plan: Oncology consulted. Dr. Chacon discussed with Dr. Lau. 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 Diagnosed September 2019. Receiving chemo with carboplatin and paclitaxel third cycle on 02/19/2020. 03/08/2020 She had her third cycle of paclitaxel and carboplatin late last month. Cell counts as noted above. 03/09/2020 Paren collagen no further chemotherapy treatments planned at this time (5) Malignant pleural effusion Is this a current diagnosis for this admission?: Yes Plan: Right lower lobe opacities noted. Suspected that this is likely secondary to patient's remnants of right pleural effusion from malignant spread that was noted on prior visit last year will monitor. Pulse ox is adequate on room air. 03/08/2020 Continue to monitor as noted above. (6) Morbid obesity with BMI of 45.0-49.9, adult Is this a current diagnosis for this admission?: Yes Plan: 03/08/2020 Due to the patient's continued illness no active weight loss plans at this time. (7) Decubitus ulcer of sacral region, stage 3 Is this a current diagnosis for this admission?: Yes Plan: 03/08/2020 Present on admission. Unable to turn patient today to examine. Will attempt as sessment again tomorrow. 03/09/2020 Because of the patient's obtunded state and her BMI of 46 it is very difficult to mobilize her. When they changed her bed linens this morning the nurse reports that she does have a sacral ulcer. It was stage III and present upon admission. She is on a special pressure reducing mattress. Due to her overall poor state of health feeling will be difficult. Continue to offload and keep the area clean. - Plan Summary Summary: 03/09/2020 I did have a chance to speak to Mr. Molina this evening. I explained that her prognosis is grave. I reported that I do not believe the patient is going to survive this. I do not think she will get appreciably better despite all of the treatments. I explained that my thinking is consistent with the oncologist Dr. Overton. The patient's spouse did not want to make any decisions this evening. He wants the family present and we will talk tomorrow. Despite her grave prognosis he wanted the patient to remain full code at this time. - Time Time Spent with patient: 25-34 minutes Medications reviewed and adjusted accordingly: Yes Anticipated discharge: Other - Unknown Within: Other - Unknown
[2020-03-09] MEDS: FAMOTIDINE INJ/PF 20 MG/2 ML SDV IV SCH (21:37)
[2020-03-10] MEDS: CEFAZOLIN SODIUM 2 GM in DEXTROSE 5%-WATER 100 ML IV SCH ×2 (05:25→13:32)
[2020-03-10 05:56] LABS: HEMATOCRIT 24.2 % (36.0-47.0); MEAN CORPUSCULAR HEMOGLOBIN 29.4 pg (27.0-33.4); MEAN CORPUSCULAR HGB CONC 33.1 g/dL (32.0-36.0); MEAN CORPUSCULAR VOLUME 89 fl (80-97); RED BLOOD COUNT 2.72 10^6/uL (3.72-5.28); RED CELL DISTRIBUTION WIDTH 15.7 % (11.5-14.0); WHITE BLOOD COUNT 3.4 10^3/uL (4.0-10.5)
[2020-03-10 06:09] LABS: ALBUMIN 2.2 g/dL (3.5-5.0); ALKALINE PHOSPHATASE 69 U/L (38-126); ASPARTATE AMINO TRANSFERASE 16 U/L (14-36); BILIRUBIN,TOTAL 0.5 mg/dL (0.2-1.3); BLOOD UREA NITROGEN 15 mg/dL (7-20); CALCIUM 8.2 mg/dL (8.4-10.2); CHLORIDE 110 mmol/L (98-107); GLUCOSE 99 mg/dL (75-110); POTASSIUM 3.3 mmol/L (3.6-5.0); TOTAL PROTEIN 5.7 g/dL (6.3-8.2)
[2020-03-10 06:14] LABS: CARBON DIOXIDE 35 mmol/L (22-30)
[2020-03-10 06:17] LABS: ANION GAP 0 (5-19)
[2020-03-10 06:27] LABS: ABSOLUTE LYMPHOCYTES# (MANUAL) 0.9 10^3/uL (0.5-4.7); ABSOLUTE MONOCYTES # (MANUAL) 0.1 10^3/uL (0.1-1.4); BAND NEUTROPHILS % (MANUAL) 6 % (3-5); BASOPHILS % (MANUAL) 0 % (0-2); EOSINOPHILS % (MANUAL) 0 % (0-6); LYMPHOCYTES % (MANUAL) 27 % (13-45); MONOCYTES % (MANUAL) 4 % (3-13); SEGMENTED NEUTROPHILS % (MAN) 63 % (42-78); TOTAL CELLS COUNTED 100
[2020-03-10 06:29] LABS: ANISOCYTOSIS SLIGHT; BURR CELLS SLIGHT; PLATELET COMMENT DECREASED; SCHISTOCYTES SLIGHT; TOXIC GRANULATION SLIGHT
[2020-03-10 06:30] LABS: PLATELET COUNT 9 10^3/uL (150-450)
[2020-03-10] MEDS ORDERED: DEXTROSE 5%-NORMAL SALINE 1,000 ML IV PRN (10:36)
--- NOTE | 2020-03-10 10:41 | PDOC PROGRESS REPORT ---
Subjective Progress Note for:: 03/10/20 Subjective:: The patient remains obtunded. She will moan spontaneously and not just in response to verbal interaction. When you touch her left arm her reaction suggests pain. She has not been able to eat, drink or take medications. Reason For Visit: ACUTE STROKE,PANCYTOPENIA Physical Exam Vital Signs: Temp Pulse Resp BP Pulse Ox 98.4 F 99 24 H 183/98 H 99 03/10/20 09:06 03/10/20 09:06 03/10/20 09:06 03/10/20 09:06 03/10/20 09:06 Pulse Oximeter Continuous Start: 03/02/20 14:07 Freq: RTQ4 Status: Complete Protocol: Document 03/02/20 16:00 IFEOMA (Rec: 03/02/20 16:14 J [email or web address]) Pulse Oximetry Assessment Oxygen Saturation (92-100) 94 Fraction of Inspired Oxygen (FIO2) 21 Equipment Usage Equipment Standby Continuous SpO2 Machine # 0 Additional RT Notes Other pt on nurse monitor Intake & Output 03/09/20 03/10/20 03/11/20 06:59 06:59 06:59 Intake Total 1438 1740 Output Total 675 420 Balance 763 1320 Weight 110.5 kg 110.7 kg General appearance: PRESENT: mild distress, morbidly obese Head exam: PRESENT: atraumatic, normocephalic Eye exam: PRESENT: other - Unable to assess Ear exam: PRESENT: normal external ear exam. ABSENT: bleeding, drainage Mouth exam: PRESENT: other - Unable to assess Teeth exam: PRESENT: other - Unable to assess Throat exam: PRESENT: other - Unable to assess Neck exam: ABSENT: carotid bruit, JVD Respiratory exam: PRESENT: clear to auscultation carlita - Anteriorly, symmetrical, unlabored. ABSENT: rales, rhonchi, tachypnea, wheezes Cardiovascular exam: PRESENT: RRR, +S1, +S2 GI/Abdominal exam: PRESENT: diminished bowel sounds, soft. ABSENT: distended, guarding, tenderness Rectal exam: PRESENT: deferred Gentrourinary exam: PRESENT: indwelling catheter - Dark tea colored urine Extremities exam: PRESENT: tenderness - When you touch her left arm, +2 edema Musculoskeletal exam: PRESENT: deformity - Left wrist/hand deviates to the ulnar side. Neurological exam: PRESENT: altered - Obtunded. ABSENT: alert, awake Focused psych exam: PRESENT: other - Obtunded Skin exam: PRESENT: dry, pallor, warm. ABSENT: rash Results Laboratory Results: 03/10/20 04:55 03/10/20 04:55 03/10/20 03/10/20 04:55 04:55 WBC 3.4 L RBC 2.72 L Hgb 8.0 L Hct 24.2 L MCV 89 MCH 29.4 MCHC 33.1 RDW 15.7 H Plt Count 9 L* Seg Neutrophils % Not Reportable Sodium 144.6 Potassium 3.3 L Chloride 110 H Carbon Dioxide 35 H Anion Gap 0 L BUN 15 Creatinine 0.46 L Est GFR ( Amer) > 60 Glucose 99 Calcium 8.2 L Magnesium 1.6 Total Bilirubin 0.5 AST 16 Alkaline Phosphatase 69 Total Protein 5.7 L Albumin 2.2 L 03/02/20 03/02/20 10:55 10:55 Creatine Kinase 147 H CK-MB (CK-2) 2.41 Troponin I 0.069 Impressions: Head MRI 03/02/20 00:00 IMPRESSION: Multiple small infarcts in the right parietal lobe which are acute. This is extension of the known right parietal infarct. Very limited images with enhancement but no obvious enhancing lesions. Atrophy and microvascular ischemia. EVIDENCE OF ACUTE STROKE: Yes RIGHT MCA. Head CT 03/02/20 10:54 IMPRESSION: Progression of known infarction in the right MCA territory. No evidence of hemorrhage or mass effect. EVIDENCE OF ACUTE STROKE: NO. Subacute/chronic. Modified Barium Swallow 03/04/20 07:00 IMPRESSION: LARYNGEAL PENETRATION WITH THIN LIQUIDS. NO ASPIRATION SEEN. PLEASE SEE SPEECH PATHOLOGIST REPORT FOR OTHER FINDINGS AND RECOMMENDATIONS. Carotid Doppler Study 03/05/20 00:00 IMPRESSION: NO HEMODYNAMICALLY SIGNIFICANT STENOSIS. Chest X-Ray 03/07/20 00:00 IMPRESSION: 1. Interval placement of right internal jugular line since the prior examination performed on the same date, tip suggested at the junction of the right brachiocephalic vein--superior vena cava. No pneumothorax. Assessment and Plan - Diagnosis (1) Acute ischemic stroke Is this a current diagnosis for this admission?: Yes Plan: Acute infarcts confirmed on MRI once again within the right MCA territory. 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 New symptoms seem to be aphasia, dysarthria, complete paralysis of the left arm [CVA in 2019 left here with LUE and LLE paresis]. MBS showing poor oral receptionist clerk but no evidence of aspiration. Speech therapist recommending pured diet with thin liquids but there is concern that patient would not meet her nutritional needs. PT and Occupational Therapy Continue to review telemetry for any evidence of occult atrial arrhythmia. Aspirin and Plavix. LDL of 53 therefore statin is not required. Low risk echo. Unremarkable carotid ultrasound. GI prophylaxis and SCDs Dr. Chacon discussed with patient's who wishes for continued full care but open to having further discussion with palliative care. Consulted. 03/08/2020 The patient was not verbally interactive today. This made the assessment very difficult. It is difficult to know if this is secondary to infection or progression of stroke. She was working with therapy earlier this week but in this current state I do not think it will be successful. Continue current care and monitor closely. Unfortunately her platelets have decreased back to 19,000. I will hold the aspirin and Plavix for now. Another platelet count is due tomorrow. If they decrease further I will discuss with hematology about additional platelet transfusions. 03/09/2020 The patient is practically obtunded. While at the bedside the nurse tried to feed her some lunch. Placing a little bit of mashed potato on her lips the patient did not respond and in fact almost appeared to be rejecting the attem pts. This is more of a global decline. She has not been able to take medications. I will reach out to the family to discuss treatment plan options prior to inserting a nasogastric tube. 03/10/2020 Still with marked discomfort in the left arm. No voluntary movement noted. Patient is obtunded. 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 Overton's office on 02/27/2020. Has received filgrastim. Dr. Chacon discussed with Oncology. Blood and platelet transfusion as per hematology recommendations 03/08/2020 White cell count is declining now that GCSF has been stopped. Hemoglobin continues to slowly improve however her platelet count is down again today. I am holding the aspirin and Plavix pending tomorrow's platelet count. Unfortunately there is risk of bleeding versus risk of recurrent stroke. At this point her bleeding risk is higher. Significant platelet aggregation is much less likely at this low platelet count. 03/09/2020 The platelet count continues to decline. Her hemoglobin continues to decline. Her white blood cell count is back in the normal range at this time. We will co ntinue to monitor. 03/10/2020 White blood cell count is starting to trend down. Platelets are still in the single digit category and her hemoglobin continues to slowly decline. (3) Staphylococcus aureus bacteremia Is this a current diagnosis for this admission?: Yes Plan: High burden MSSA bacteremia resulted in <24 hours. TTE negative for vegetations. The source is from CVC/Port-cath. Vancomycin discontinued. Cefazolin started. Repeat blood cultures still positive. Port was removed yesterday with jaja pus noted. 03/08/2020 Per identification and sensitivities cefazolin is an appropriate antibiotic choice. I am repeating blood cultures tomorrow as the length of treatment will infect start from the first set of negative blood cultures. It is proposed that the decubitus ulcer seeded the patient's blood. Purulent drainage accumulated at the Port-A-Cath site. Was unable to examine her sacral area today. Hopefu lly she will be more alert tomorrow so that I can examine directly. 03/09/2020 Continue cefazolin (4) Stage IV carcinoma of ovary Qualifiers: Laterality: unspecified laterality Qualified Code(s): C56.9 - Malignant neoplasm of unspecified ovary Is this a current diagnosis for this admission?: Yes Plan: Oncology consulted. Dr. Chacon discussed with Dr. Lau. 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 Diagnosed September 2019. Receiving chemo with carboplatin and paclitaxel third cycle on 02/19/2020. 03/08/2020 She had her third cycle of paclitaxel and carboplatin late last month. Cell counts as noted above. 03/09/2020 Paren collagen no further chemotherapy treatments planned at this time (5) Malignant pleural effusion Is this a current diagnosis for this admission?: Yes Plan: Right lower lobe opacities noted. Suspected that this is likely secondary to patient's remnants of right pleural effusion from malignant spread that was noted on prior visit last year will monitor. Pulse ox is adequate on room air. 03/08/2020 Continue to monitor as noted above. (6) Morbid obesity with BMI of 45.0-49.9, adult Is this a current diagnosis for this admission?: Yes Plan: 03/08/2020 Due to the patient's continued illness no active weight loss plans at this time. (7) Decubitus ulcer of sacral region, stage 3 Is this a current diagnosis for this admission?: Yes Plan: 03/08/2020 Present on admission. Unable to turn patient today to examine. Will attempt assessment again tomorrow. 03/09/2020 Because of the patient's obtunded state and her BMI of 46 it is very difficult to mobilize her. When they changed her bed linens this morning the nurse reports that she does have a sacral ulcer. It was stage III and present upon admission. She is on a special pressure reducing mattress. Due to her overall poor state of health feeling will be difficult. Continue to offload and keep the area clean. (8) Comfort measures only status Is this a current diagnosis for this admission?: Yes Plan: 03/10/2020 After an extensive discussion with the patient's family (see ACP note) it was decided that the patient will be comfort measures only. I have placed an order for hospice to come and see the patient. I would like them to be further educated as to inpatient hospice versus home hospice. I did inform the family the best I could but the hospice/home health aide will be able to provide greater detail. At this time it is unknown what the patient's life expectancy is. She did have a significant infection. She has not been eating or drinking. This is on top of an acute stroke and stage IV ovarian cancer. Because the patient is comfort measures only compassionate family visiting will be allowed. - Plan Summary Summary: 03/09/2020 I did have a chance to speak to Mr. Molina this evening. I explained that her prognosis is grave. I reported that I do not believe the patient is going to survive this. I do not think she will get appreciably better despite all of the treatments. I explained that my thinking is consistent with the oncologist Dr. Overton. The patient's spouse did not want to make any decisions this evening. He wants the family present and we will talk tomorrow. Despite her grave prognosis he wanted the patient to remain full code at this time. - Time Time Spent with patient: 15-24 minutes Medications reviewed and adjusted accordingly: Yes Anticipated discharge: Hospice
[2020-03-10] MEDS ORDERED: METOPROLOL TARTRATE PF/INJ 5 MG/5 ML SDV IV SCH (12:00)
[2020-03-10] MEDS ORDERED: HYDRALAZINE HCL INJ/PF 20 MG/1 ML SDV IV SCH (12:00)
[2020-03-10] MEDS ORDERED: FENTANYL CITRATE INJ/PF 100 MCG/2 ML AMPUL IV PRN ×2 (12:20→14:39)
--- NOTE | 2020-03-10 14:18 | ADVANCED CARE ---
- Diagnosis (1) Acute ischemic stroke Diagnosis Current: Yes (2) Pancytopenia due to antineoplastic chemotherapy Diagnosis Current: Yes (3) Staphylococcus aureus bacteremia Diagnosis Current: Yes (4) Stage IV carcinoma of ovary Diagnosis Current: Yes (5) Malignant pleural effusion Diagnosis Current: Yes (6) Morbid obesity with BMI of 45.0-49.9, adult Diagnosis Current: Yes (7) Decubitus ulcer of sacral region, stage 3 Diagnosis Current: Yes Attendance: The patient's , son, daughter and additional family members Resuscitation Status: Comfort Measures Only Discussion: Due to be COVID restrictions the discussion was had with family by telephone. I did speak to the patient's last night and he wished for more family members to participate. Today the patient's as well as his son and daughter and several other family members were at the patient's house for this discussion. We reviewed the patient's status including the infection, her cancer and stroke. She has deteriorated despite antibiotic therapy, fluids and attempts to feed the patient. She is now having discomfort. When you touch her left arm she moans. She has not been able participate in meals or taking oral medications. I did discuss the case with Dr. Overton from oncology yesterday. His recommendation is that the patient moved to hospice/comfort care. Unfortunately the COVID restrictions have created difficulties. We discussed home hospice extensively but in general the family does not feel there is enough people to provide the level of care and medical decision-making required for home hospice. We discussed hospice house. The closest one is in [place]. This was too far for the family. Hospice level care at a local residential facility might also include visitation restrictions. Comfort measures patient remaining of hospital would allow for ongoing care on the hospitalist service as well as participation by her oncologist. After very lengthy discussion the opinions of all family members were expressed. It was clear by listening to the discussion that the family does not want to prolong the patient suffering. In light of her grave prognosis and current status it was felt that the next course of action would be comfort measures only. I will enter those orders. We will discontinue antibiotic therapy as well as any medications not specifically related to direct patient comfort. Care Planning Goals: Comfort care Document(s) Completed: None Time Spent: 40 minutes
[2020-03-10] MEDS: LORAZEPAM INJ 2 MG/1 ML VIAL IV PRN (15:13)
[2020-03-10] MEDS: FENTANYL CITRATE INJ/PF 100 MCG/2 ML AMPUL IV PRN (15:13)
[2020-03-10] MEDS: NORMAL SALINE 1000 ML 1,000 ML IV PRN (15:17)
[2020-03-10] MEDS: METOPROLOL TARTRATE 25 MG TABLET PO SCH (16:06)
[2020-03-11] MEDS: LORAZEPAM INJ 2 MG/1 ML VIAL IV PRN (01:24)
[2020-03-11] MEDS: FENTANYL CITRATE INJ/PF 100 MCG/2 ML AMPUL IV PRN ×2 (02:28→14:51)
--- NOTE | 2020-03-11 08:20 | PDOC PROGRESS REPORT ---
Subjective Progress Note for:: 03/11/20 Subjective:: Pt resting comfortably Reason For Visit: ACUTE STROKE,PANCYTOPENIA Physical Exam Vital Signs: Temp Pulse Resp BP Pulse Ox 98.4 F 89 18 145/83 H 100 03/10/20 20:07 03/10/20 20:07 03/10/20 20:07 03/10/20 20:07 03/10/20 20:07 Pulse Oximeter Continuous Start: 03/02/20 14:07 Freq: RTQ4 Status: Complete Protocol: Document 03/02/20 16:00 JDR (Rec: 03/02/20 16:14 J [id number]) Pulse Oximetry Assessment Oxygen Saturation (92-100) 94 Fraction of Inspired Oxygen (FIO2) 21 Equipment Usage Equipment Standby Continuous SpO2 Machine # 0 Additional RT Notes Other pt on nurse monitor Intake & Output 03/10/20 03/11/20 03/12/20 06:59 06:59 06:59 Intake Total 1740 1450 Output Total 420 Balance 1320 1450 Weight 110.7 kg Results Laboratory Results: 03/10/20 04:55 03/10/20 04:55 03/02/20 03/02/20 10:55 10:55 Creatine Kinase 147 H CK-MB (CK-2) 2.41 Troponin I 0.069 Impressions: Head MRI 03/02/20 00:00 IMPRESSION: Multiple small infarcts in the right parietal lobe which are acute. This is extension of the known right parietal infarct. Very limited images with enhancement but no obvious enhancing lesions. Atrophy and microvascular ischemia. EVIDENCE OF ACUTE STROKE: Yes RIGHT MCA. Head CT 03/02/20 10:54 IMPRESSION: Progression of known infarction in the right MCA territory. No evidence of hemorrhage or mass effect. EVIDENCE OF ACUTE STROKE: NO. Subacute/chronic. Modified Barium Swallow 03/04/20 07:00 IMPRESSION: LARYNGEAL PENETRATION WITH THIN LIQUIDS. NO ASPIRATION SEEN. PLEASE SEE SPEECH PATHOLOGIST REPORT FOR OTHER FINDINGS AND RECOMMENDATIONS. Carotid Doppler Study 03/05/20 00:00 IMPRESSION: NO HEMODYNAMICALLY SIGNIFICANT STENOSIS. Chest X-Ray 03/07/20 00:00 IMPRESSION: 1. Interval placement of right internal jugular line since the prior examination performed on the same date, tip suggested at the junction of the right brachiocephalic vein--superior vena cava. No pneumothorax. Assessment & Plan - Diagnosis (1) Pancytopenia due to antineoplastic chemotherapy Is this a current diagnosis for this admission?: Yes Plan: no further labs or rx planned (2) Neutropenia Qualifiers: Neutropenia type: secondary to cancer chemotherapy Qualified Code(s): D70.1 - Agranulocytosis secondary to cancer chemotherapy; T45.1X5A - Adverse effect of antineoplastic and immunosuppressive drugs, initial encounter Is this a current diagnosis for this admission?: Yes Plan: resolved (3) Stage IV carcinoma of ovary Qualifiers: Laterality: unspecified laterality Qualified Code(s): C56.9 - Malignant neoplasm of unspecified ovary Is this a current diagnosis for this admission?: Yes Plan: no further rx, comfort care only - Time Time Spent with patient: 15-24 minutes - Plan Summary Plan Summary: will follow peripherally
[2020-03-11 08:35] VITALS: BP 129/79
[2020-03-11] MEDS: NORMAL SALINE 1000 ML 1,000 ML IV PRN (17:20)
--- NOTE | 2020-03-11 19:01 | PDOC PROGRESS REPORT ---
Subjective Progress Note for:: 03/11/20 Subjective:: Patient exhibiting some agonal breathing Reason For Visit: ACUTE STROKE,PANCYTOPENIA Physical Exam Vital Signs: Temp Pulse Resp BP Pulse Ox 98.3 F 110 H 22 H 129/79 H 94 03/11/20 07:59 03/11/20 07:59 03/11/20 07:59 03/11/20 07:59 03/11/20 07:59 Pulse Oximeter Continuous Start: 03/02/20 14:07 Freq: RTQ4 Status: Complete Protocol: Document 03/02/20 16:00 JDR (Rec: 03/02/20 16:14 J [email or web address]) Pulse Oximetry Assessment Oxygen Saturation (92-100) 94 Fraction of Inspired Oxygen (FIO2) 21 Equipment Usage Equipment Standby Continuous SpO2 Machine # 0 Additional RT Notes Other pt on nurse monitor Intake & Output 03/10/20 03/11/20 03/12/20 06:59 06:59 06:59 Intake Total 1740 1450 1000 Output Total 420 Balance 1320 1450 1000 Weight 110.7 kg General appearance: PRESENT: other - Obtunded Respiratory exam: PRESENT: rhonchi - Bilateral. More pronounced on the right., symmetrical. ABSENT: tachypnea - Agonal breathing pattern, wheezes Cardiovascular exam: PRESENT: RRR, +S1, +S2 GI/Abdominal exam: PRESENT: diminished bowel sounds, soft. ABSENT: tenderness Rectal exam: PRESENT: deferred Gentrourinary exam: PRESENT: indwelling catheter - No significant urine production Extremities exam: PRESENT: pedal edema Neurological exam: ABSENT: awake - Obtunded Results Laboratory Results: 03/10/20 04:55 03/10/20 04:55 03/09/20 05:00 Blood Blood Culture (PCR) - Final Staphylococcus Species 03/02/20 03/02/20 10:55 10:55 Creatine Kinase 147 H CK-MB (CK-2) 2.41 Troponin I 0.069 Impressions: Head MRI 03/02/20 00:00 IMPRESSION: Multiple small infarcts in the right parietal lobe which are acute. This is extension of the known right parietal infarct. Very limited images with enhancement but no obvious enhancing lesions. Atrophy and microvascular ischemia. EVIDENCE OF ACUTE STROKE: Yes RIGHT MCA. Head CT 03/02/20 10:54 IMPRESSION: Progression of known infarction in the right MCA territory. No evidence of hemorrhage or mass effect. EVIDENCE OF ACUTE STROKE: NO. Subacute/chronic. Modified Barium Swallow 03/04/20 07:00 IMPRESSION: LARYNGEAL PENETRATION WITH THIN LIQUIDS. NO ASPIRATION SEEN. PLEASE SEE SPEECH PATHOLOGIST REPORT FOR OTHER FINDINGS AND RECOMMENDATIONS. Carotid Doppler Study 03/05/20 00:00 IMPRESSION: NO HEMODYNAMICALLY SIGNIFICANT STENOSIS. Chest X-Ray 03/07/20 00:00 IMPRESSION: 1. Interval placement of right internal jugular line since the prior examination performed on the same date, tip suggested at the junction of the right brachiocephalic vein--superior vena cava. No pneumothorax. Assessment and Plan - Diagnosis (1) Acute ischemic stroke Is this a current diagnosis for this admission?: Yes (2) Pancytopenia due to antineoplastic chemotherapy Is this a current diagnosis for this admission?: Yes (3) Staphylococcus aureus bacteremia Is this a current diagnosis for this admission?: Yes (4) Stage IV carcinoma of ovary Qualifiers: Laterality: unspecified laterality Qualified Code(s): C56.9 - Malignant neoplasm of unspecified ovary Is this a current diagnosis for this admission?: Yes (5) Malignant pleural effusion Is this a current diagnosis for this admission?: Yes (6) Morbid obesity with BMI of 45.0-49.9, adult Is this a current diagnosis for this admission?: Yes (7) Decubitus ulcer of sacral region, stage 3 Is this a current diagnosis for this admission?: Yes (8) Comfort measures only status Is this a current diagnosis for this admission?: Yes - Plan Summary Summary: 03/09/2020 I did have a chance to speak to Mr. Molina this evening. I explained that her prognosis is grave. I reported that I do not believe the patient is going to survive this. I do not think she will get appreciably better despite all of the treatments. I explained that my thinking is consistent with the oncologist Dr. Overton. The patient's spouse did not want to make any decisions this evening. He wants the family present and we will talk tomorrow. Despite her grave prognosis he wanted the patient to remain full code at this time. 03/11/2020 The patient is now comfort care only and has been so since yesterday afternoon. Breathing is getting agonal. We are not checking vital signs except every shift. The patient appears to be pain-free at this time. I did speak to nursing and evidently family was present but for the limited time. Continue current treatment plan. - Time Time Spent with patient: Less than 15 minutes Medications reviewed and adjusted accordingly: Yes Anticipated discharge: Hospice
[2020-03-11] MEDS ORDERED: FENTANYL CITRATE INJ/PF 100 MCG/2 ML AMPUL IV PRN ×2 (19:10)
--- NOTE | 2020-03-11 21:00 | Death Summary ---
Summary Date : 03/11/20 Time of :: 20:23 Autopsy: No Resuscitation Status: Comfort Measures Only Primary Care Provider: Dr. Overton Consulting Provider: Dr. Malcolm - Final Diagnosis (1) Staphylococcus aureus bacteremia Is this a current diagnosis for this admission?: Yes (2) Pancytopenia due to antineoplastic chemotherapy Is this a current diagnosis for this admission?: Yes (3) Stage IV carcinoma of ovary Is this a current diagnosis for this admission?: Yes (4) Cerebral infarction due to thrombosis of right middle cerebral artery Is this a current diagnosis for this admission?: Yes (5) Malignant pleural effusion Is this a current diagnosis for this admission?: Yes (6) Essential (primary) hypertension Is this a current diagnosis for this admission?: Yes (7) Type 2 diabetes mellitus without complications Is this a current diagnosis for this admission?: Yes (8) Decubitus ulcer of sacral region, stage 3 Is this a current diagnosis for this admission?: Yes (9) Morbid obesity with BMI of 40.0-44.9, adult Is this a current diagnosis for this admission?: Yes Hospital Course:: 03/02/2020 ASIM MUÑIZ is a 74 year old female with a history of diabetes mellitus type 2, 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 Patient was brought into the hospital by EMS today for evaluation of change in mental status. Patient's reports that since last night patient has been moaning and making incomprehensible sounds. He also states that patient's face was s drooping. He states that patient has history of left hemiplegia from prior stroke. For the past 1 week, patient has not been eating or drinking sufficiently and has lost appetite. Patient is seen her normals prior state conversational and fully comprehensible and able to walk about 6 feet with some assistance by 2 people. Patient also notably received chemotherapy last on February 18 and had a transfusion on February 26. The patient was subsequently confirmed to have an acute ischemic infarction in the right middle cerebral artery distribution. She was additionally found to have an MSSA bacteremia and continued to be pancytopenic secondary to her chemotherapy. Despite all efforts that were made to treat her multiple conditions she continued to fail and subsequently her family decided to make her comfort measures only. She succumbed to a dignified and peaceful at 8:23 PM on 03/11/2020.
== END 2020-03-11 21:30 | DRG 64 ==
LOC: ER 10:16 → EH 13:04 → 3S 15:32
PROVIDERS: ADMIT Internal Medicine; ATTEND Hospitalist
PROC: 0JPT0XZ Removal of Tunneled Vascular Access Device from Trunk Subcutaneous Tissue and Fascia, Open Approach (ICD-10-PCS; 2020-03-06)
PROC: 02HV33Z Insertion of Infusion Device into Superior Vena Cava, Percutaneous Approach (ICD-10-PCS; principal; 2020-03-07)
PROC: 05JY3ZZ Inspection of Upper Vein, Percutaneous Approach (ICD-10-PCS; 2020-03-07)
DX: I63.311 Cerebral infarction due to thrombosis of right middle cerebral artery (principal); L89.153 Pressure ulcer of sacral region, stage 3; D61.810 Antineoplastic chemotherapy induced pancytopenia; C56.9 Malignant neoplasm of unspecified ovary; C78.01 Secondary malignant neoplasm of right lung; J91.0 Malignant pleural effusion; I69.354 Hemiplegia and hemiparesis following cerebral infarction affecting left non-dominant side; N39.0 Urinary tract infection, site not specified; T82.7XXA Infection and inflammatory reaction due to other cardiac and vascular devices, implants and grafts, initial encounter; R78.81 Bacteremia; N17.9 Acute kidney failure, unspecified; Z68.42 Body mass index [BMI] 45.0-49.9, adult; G81.94 Hemiplegia, unspecified affecting left nondominant side; E11.9 Type 2 diabetes mellitus without complications; R47.01 Aphasia; D64.9 Anemia, unspecified; R01.1 Cardiac murmur, unspecified; T45.1X5A Adverse effect of antineoplastic and immunosuppressive drugs, initial encounter; Z87.891 Personal history of nicotine dependence; Z83.3 Family history of diabetes mellitus; Z82.49 Family history of ischemic heart disease and other diseases of the circulatory system; Z88.8 Allergy status to other drugs, medicaments and biological substances; Z88.0 Allergy status to penicillin; Z88.5 Allergy status to narcotic agent; E66.01 Morbid (severe) obesity due to excess calories; R47.1 Dysarthria and anarthria; B95.8 Unspecified staphylococcus as the cause of diseases classified elsewhere; Y83.2 Surgical operation with anastomosis, bypass or graft as the cause of abnormal reaction of the patient, or of later complication, without mention of misadventure at the time of the procedure; Z51.5 Encounter for palliative care; E78.5 Hyperlipidemia, unspecified; I10 Essential (primary) hypertension; H54.8 Legal blindness, as defined in USA; Z79.899 Other long term (current) drug therapy
CPT/HCPCS: 36415; 36430; 36591; 70450; 70553; 71045; 74230; 80048; 80053; 80061; 81001; 82550; 82553; 82962; 83036; 83605; 83735; 84105; 84132; 84300; 84484; 85025; 85027; 85610; 85730; 86850; 86900; 86901; 86920; 87040; 87070; 87075; 87077; 87086; 87088; 87150; 87186; 87205; 93005; 93010; 93306; 93880; 99285; A9576; J0360; J0690; J1642; J1940; J2060; J3010; J3370; J3475; J3480; J3490; J7030; J7042; J7050; J7060; P9016; P9035; Q5110; S0028